=== PATIENT | female | born 1975 | race Two or more races ===

== ENCOUNTER 2020-06-26 10:41 | Outpatient (REF) | payer MEDICAID, SELFPAY ==
--- NOTE | 2020-06-26 | US_ITS ---
EXAMINATION: ULTRASOUND PELVIC COMPLETE, ULTRASOUND TRANSVAGINAL COMPLETE CLINICAL INFORMATION: Left ovarian cysts. COMPARISON: CT scan of the abdomen and pelvis dated 06/21/2020 and pelvic ultrasound dated 03/30/2020. TECHNIQUE: Multiple 2-D grayscale and color Doppler transvaginal and transabdominal ultrasound images of the pelvis were obtained. FINDINGS: Uterus: Anteverted/anteflexed measuring 9.0 x 4.7 x 5.4 cm. Intramural fibroid in the posterior/inferior uterine body measures 0.8 x 0.6 x 0.8 cm. An adjacent intramural fibroid in the mid posterior body measures 0.5 x 0.5 x 0.5 cm. Color Doppler showed no abnormal vascular flow. The endometrium measures up to 0.6 cm without focal abnormality. Right ovary: 2.1 x 1.6 x 1.6 cm with a volume of 2.8 cm. Color Doppler showed no abnormal vascular flow. Left ovary: 2.1 x 1.4 x 1.4 cm with a volume of 2.2 cm. Several small follicles are seen measuring up to 1.4 cm. Color Doppler showed no abnormal vascular flow. Urinary bladder: Minimally distended without focal abnormality. IMPRESSION: 1. Small uterine fibroids as detailed above without significant change. 2. No significant ovarian abnormality. Small left ovarian follicles demonstrate benign features and are within normal limits for a patient of this age.
== END 2020-06-26 10:42 | disposition home or self-care (01) ==
LOC: HO.US 10:41
PROVIDERS: PCP Pediatrics; Visit Provider Obstetrics & Gynecology
DX: N83.202 Unspecified ovarian cyst, left side (principal)
CPT/HCPCS: 76830; 76856

== ENCOUNTER 2020-07-26 07:40 | Outpatient (REF) | payer MEDICAID, SELFPAY | END 2020-07-26 07:41 | disposition home or self-care (01) | LOC: HO.MAMMO 07:40 | PROVIDERS: Visit Provider Pediatrics | DX: Z13.89 Encounter for screening for other disorder (principal) ==

== ENCOUNTER → 2020-08-09 11:06 | Outpatient (BNVA) | payer MEDICAID, SELFPAY | PROVIDERS: Visit Provider Obstetrics & Gynecology | DX: N92.0 Excessive and frequent menstruation with regular cycle (principal); G43.109 Migraine with aura, not intractable, without status migrainosus | CPT/HCPCS: 99212 ==

== ENCOUNTER → 2020-08-24 08:14 | Outpatient (BNVA) | payer MEDICAID, SELFPAY | PROVIDERS: Visit Provider Anesthesiology | DX: M79.7 Fibromyalgia (principal); M77.12 Lateral epicondylitis, left elbow; M77.11 Lateral epicondylitis, right elbow | CPT/HCPCS: 99212 ==

== ENCOUNTER → 2020-08-30 11:10 | Outpatient (BNVA) | payer MEDICAID, SELFPAY | PROVIDERS: PCP Pediatrics; Visit Provider Obstetrics & Gynecology | DX: Z76.89 Persons encountering health services in other specified circumstances (principal) ==

== ENCOUNTER → 2020-09-01 13:22 | Outpatient (BNVA) | payer MEDICAID, SELFPAY | PROVIDERS: PCP Pediatrics; Referring Provider Pediatrics; Visit Provider Physician Assistant | DX: M77.11 Lateral epicondylitis, right elbow (principal); M77.12 Lateral epicondylitis, left elbow | CPT/HCPCS: 20551; 99212; J1020 ==

== ENCOUNTER → 2020-09-25 14:23 | Outpatient (BNVA) | payer MEDICAID, SELFPAY | PROVIDERS: Visit Provider Obstetrics & Gynecology | DX: Z76.89 Persons encountering health services in other specified circumstances (principal) ==

== ENCOUNTER 2020-10-09 14:30 | Outpatient (RCR) | payer MEDICAID, SELFPAY ==
--- NOTE | 2020-09-11 15:03 | MHC.OT.OEV ---
[address] [phone] F: [phone] Occupational Therapy Evaluation Diagnosis: B/L Lateral Epicondylitis Date of Onset: 09/04/20 Attending Provider: Oswaldo Amor PA-C Prescribed Treatment: Eval and Treat MD Follow Up Appointment: History of Current Condition: Pt reports worsening pain in both arms and legs over the past few years, diagnosed with fibromyalgia. States she has had onset of pain in both elbows and went to specialist for cortisone injection a week ago. Injections provided some relief. 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) Living Situation, Family and/or Social Support: Lives with her daughter Current Level of Function and Occupation Self Care, Employment, Leisure: Enjoys painting and coloring, doing small weight (.5 lb) exercises, Ind w/ showers and dressing, difficulty w/ hair care Sleep: Difficulty sleeping due to pain in elbows w/ flexion Driving: Not driving due to pain and takes more meds that make driving unsafe Pain Assessment Pain Score: 6 Pain Scale Used: Numeric (0 - 10) Pain Location and Description: Bilateral lateral epicondyles, right > left Aggravating Factors: Sleeping w/ elbow extension, activities that bend arms (doing her hair) Alleviating Factors: Uses Ketoprofin-Lidocain combo topical cream Skin and Soft Tissue Assessment Skin and Soft Tissue: Ecchymosis Comments: Small bruises on bilateral epicondyles at injection site Nerve assessment Ulnar Nerve: B/L Impaired Median Nerve: B/L Impaired Radial Nerve: B/L Impaired Comments: Grossly 4/5 Sensory Assessment Comments: Pt reports tingling in all digits Edema Assessment Comments: mild edema bilateral epicondyles Dexterity Assessment Dexterity: WFL Comments: slow movements, guarded in general Special Tests Comments: AROM(PROM) Strength Cervical Cervical Flexion: Cervical Extension: Cervical Lateral Flexion: Cervical Rotation: Comments: Decreased end range rotation Shoulder Flexion: Extension: Abduction: Internal Rotation: External Rotation: Comments: Gaurded to full range, reports pain/tightness Flexion: Extension: Abduction: Internal Rotation: External Rotation: Comments: Elbow Flexion: Extension: Pronation: Supination: Comments: WFL Flexion: Extension: Pronation: Supination: Comments: Wrist Flexion: Extension: Ulnar Deviation: Radial Deviation: Comments: WFL Flexion: Extension: Ulnar Deviation: Radial Deviation: Comments: Thumb Thumb CMC Flexion: Thumb MCP Flexion: Thumb IP Flexion: Radial Abduction: Palmar Abduction: [place] (Kapandji 0-10): Comments: WFL Digits Index MCP: PIP: DIP: Long MCP: PIP: DIP: Ring MCP: PIP: DIP: Small MCP: PIP: DIP: Comments: WFL Gross Grasp: R 10 L 5 Lateral Pinch: R 4 L 5 Two-Point Pinch: R 2 R 2 Three-Jaw Aric: R 3 L 2 Comments: no change in pain with elbow extended vs. flexed Patient Education Primary Language: Solution Spec Required: Yes Current Knowledge: Minimal, needs reinforcement Teaching Method: Demonstration Handouts Verbal Education Needs Identified on Evaluation: ADL's Disease Information Equipment Use Exercise Pain Safety How did patient/family demonstrate learning? Patient demonstrates Patient verbalizes Needs reinforcement Barriers to Learning: None Readiness for Learning: Accepting Who was educated? Patient Family/other Comments: Daughter present and supportive Plan of Care Assessment: 45 yo female presents w/ worsening bilateral lateral elbow pain over the past few months, had cortisone injection w/ some relief, but still has difficulty w/ daily activities that involve prolong bending of the elbows or general strength needs. She has hx of fibromyalgia and has been out of work for several years, daughter assists w/ home care and some self care. On assessment, she appears very guarded with slow gross movements and decreased end range of neck and shoulder and significantly decreased hand strength. She will benefit from cont'd OT for joint protection education and progression with exercise program with range and strengthening within comfort. STG Duration: 1 week Short Term Goals: Ind w/ HEP Good follow through w/ sleep modications B/L gross grasp >15 lb 2/10 resting pain LTG Duration: Retirement Goals: 4 weeks Pt to progress to eccentric UE exercise program Pt to complete UBE >8 min w/ min muscle fatigue reported B/L gross grasp >20lb B/L elbows pain free at rest Frequency and Duration: The patient will be seen 2x/wk for 4 weeks Treatment Plan: Therapeutic Exercise Therapeutic Activity Home Exercise Program Splinting Patient Education Edema Control ADL Training MHP Cold Packs Soft Tissue Mobilization Kinesiotaping Electronically Signed By: Agnieszka Bingham OTR/L Reviewed/agree with student documentation: N/A Therapist: Please sign and return to therapist, Thank you for your referral.
--- NOTE | 2020-12-06 10:14 | MHC.OT.DC ---
[address] [phone] F: [phone] Occupational Therapy Discharge Note Provider: Matilda Amor PA-C Diagnosis: B/L Lateral Epicondylitis Date of Evaluation: 09/11/20 Treatments to Date: 8 Discharge Status: Patient Elected to Stop Discharge Summary: Pt was seen this past September for bilateral elbow pain, did not continue therapy. On last treatment, still w/ moderate pain with mild medial elbow edema, some carry over w/ home exercises and recommendations for joint protection. Electronically Signed By: Agnieszka Bingham OTR/L Please Sign and return to therapist, thank you for your referral.
== END 2020-12-06 10:15 | disposition other institution (70) ==
LOC: HO.OT 14:30
PROVIDERS: Visit Provider Physician Assistant
DX: M77.11 Lateral epicondylitis, right elbow (principal); M77.12 Lateral epicondylitis, left elbow
CPT/HCPCS: 29125; 97035; 97110; 97140; 97166; 97760

== ENCOUNTER → 2020-10-27 08:49 | Outpatient (BNV) | payer MEDICAID, SELFPAY | PROVIDERS: PCP Pediatrics; Visit Provider Internal Medicine Medical Oncology | DX: D50.9 Iron deficiency anemia, unspecified (principal); D72.819 Decreased white blood cell count, unspecified | CPT/HCPCS: 99212; 99213; 99214 ==

== ENCOUNTER 2020-11-06 09:38 | Outpatient (REF) | payer MEDICAID, SELFPAY ==
--- NOTE | ~2020-11-06 | MM_ITS ---
EXAMINATION: MM SCREENING DIGITAL BREAST TOMOSYNTHESIS, BILATERAL CLINICAL INFORMATION: Screening. Asymptomatic. The lifetime risk of breast cancer based on the Tyrer-Cuzick Model is 7%. COMPARISON: Mammography: 11/04/2019, 11/02/2018, 09/13/2017 TECHNIQUE: Digital breast tomosynthesis is performed in both the craniocaudal and mediolateral oblique views along with computer-aided detection (CAD). Synthesized 2D images are generated from the tomosynthesis. FINDINGS: The breasts are heterogeneously dense, which may obscure small masses (ACR BI-RADS breast composition Category c). There are no significant masses, abnormal calcifications, or other abnormalities. Parenchymal pattern is similar to prior exams. Again, there is accessory breast tissue low left axilla. There is stable the oval asymmetry posterior outer left breast likely related to fibrocystic changes. Skin contours are smooth. MM/MM tomosynthesis screening BI IMPRESSION: No significant changes from prior studies. ASSESSMENT: BI-RADS 2: Benign RECOMMENDATION: Routine annual mammography screening. This patient's information was entered into a reminder system with a target due date for their next mammogram.
== END 2020-11-06 09:39 | disposition home or self-care (01) ==
LOC: HO.MAMMO 09:38
PROVIDERS: PCP Pediatrics; Visit Provider Pediatrics
DX: Z12.31 Encounter for screening mammogram for malignant neoplasm of breast (principal)
CPT/HCPCS: 77063; 77067

== ENCOUNTER → 2021-03-27 12:51 | Outpatient (BNVA) | payer MEDICAID, SELFPAY | PROVIDERS: PCP Pediatrics; Visit Provider Nurse Practitioner Family | DX: M79.7 Fibromyalgia (principal); M77.12 Lateral epicondylitis, left elbow; M77.11 Lateral epicondylitis, right elbow | CPT/HCPCS: 99212 ==

== ENCOUNTER 2021-04-14 12:59 | Emergency (ER) | payer MEDICAID, SELFPAY ==
[2021-04-14 13:03] VITALS: BP 111/69; PULSE 96; RESP 18; TEMP 36.1; O2SAT 100; BMI 20.5
--- NOTE | 2021-04-14 14:55 | ED.EXTPRO ---
HPI - Extremity Problem General Chief complaint: Extremity Problem Stated complaint: R ARM PAIN Time Seen by Provider: 04/14/21 14:55 History of Present Illness HPI Narrative: Patient complains of pain for several months in both elbows which got worse after a steroid injection in August, but pain preceded the injection by many months She complains of some tingling going into her fingertips but denies any motor weakness or fever or any new injury Related Data Home Medications Medication Instructions Recorded Confirmed cholecalciferol (vitamin D3) 25 25 mcg PO DAILY 07/24/20 03/27/21 mcg (1,000 unit) capsule dexlansoprazole 60 mg 60 mg PO DAILY 07/24/20 03/27/21 capsule,biphase delayed release (Dexilant) duloxetine 60 mg capsule,delayed 60 mg PO DAILY 07/24/20 03/27/21 release hydroxyzine HCl 25 mg/mL 25 mg IM Q6H PRN 07/24/20 03/27/21 intramuscular solution mirtazapine 15 mg tablet 15 mg PO DAILY 07/24/20 03/27/21 ondansetron HCl 4 mg tablet 4 mg PO Q8H 07/24/20 03/27/21 (Zofran) pregabalin 150 mg capsule 150 mg PO DAILY 07/24/20 03/27/21 trazodone 100 mg tablet 100 mg PO DAILY 07/24/20 03/27/21 venlafaxine 150 mg 150 mg PO QAM 08/24/20 03/27/21 capsule,extended release 24 hr propranolol 10 mg tablet 10 mg PO BID 03/27/21 03/27/21 Previous Rx's Medication Instructions Recorded omeprazole 20 mg capsule,delayed 20 mg PO BID 30 Days #60 cap 10/05/20 release hydrocodone 5 mg-acetaminophen 325 1 tab PO Q6H PRN #5 tab 04/14/21 mg tablet Allergies Allergy/AdvReac Type Severity Reaction Status Date / Time No Known Allergies Allergy Verified 03/27/21 12:59 Review of Systems Review of Systems: Positive for bilateral elbow pain with some intermittent tingling radiating to the finger tips Negatives are no fever no chills no dizziness no weakness no neck pain no chest pain no rash, no loss of sensation no weakness PMFSH Past Medical History Source: nursing notes reviewed Medical History Anemia Depression Epicondylitis, lateral, left Epicondylitis, lateral, right Fibromyalgia Fibromyalgia Surgical History History of bilateral tubal ligation History of Social History Social History Alcohol intake: never Current occupational status: unemployed Sexual orientation: Straight/Heterosexual Gender identity: female Physical Exam Vital Signs: Vital Signs: Last Vital Signs Temp 96.9 F 04/14/21 13:03 Pulse 96 04/14/21 13:03 Resp 18 04/14/21 13:03 BP 111/69 04/14/21 13:03 Pulse Ox 100 04/14/21 13:03 Body Mass Index 20.5 General appearance is no acute distress Head is normocephalic atraumatic Neck is supple The respiratory is no distress Extremities both elbows have full range of motion without restriction, there is no swelling or redness to the joints, there is diffuse tenderness to both elbow joints which to have a normal appearance, there is no skin rash, neurovascular intact distal with full symmetric eyeglass lens generator strength and sensation Skin no rash Neuro no focal motor or sensory deficits Course Course Course Narrative: Patient had her steroid shots placed by Orthopedics and is a patient of theirs and can follow very easily and at this point is no evidence of septic joint or any skin infection or loss of circulation so patient is advised to follow with orthopedics for this ongoing problem Discharge Plan Discharge Clinical Impression: Arthralgia of both elbows Patient Disposition: Home, Self-Care Additional Instructions: Follow with orthopedist for further evaluation and if warranted they will refer you for other studies Prescriptions: New hydrocodone-acetaminophen 5-325 mg tablet 1 tab PO Q6H PRN (Reason: pain) Qty: 5 RF: 0 No Action omeprazole 20 mg capsule,delayed release(DR/EC) 20 mg PO BID 30 Days Qty: 60 RF: 3 cholecalciferol (vitamin D3) 25 mcg (1,000 unit) capsule 25 mcg PO DAILY RF: 0 trazodone 100 mg tablet 100 mg PO DAILY RF: 0 pregabalin 150 mg capsule 150 mg PO DAILY RF: 0 ondansetron HCl [Zofran] 4 mg tablet 4 mg PO Q8H RF: 0 mirtazapine 15 mg tablet 15 mg PO DAILY RF: 0 hydroxyzine HCl 25 mg/mL solution 25 mg IM Q6H PRN (Reason: Anxiety) RF: 0 duloxetine 60 mg capsule,delayed release(DR/EC) 60 mg PO DAILY RF: 0 Dexilant 60 mg capsule,biphase delayed releas 60 mg PO DAILY RF: 0 venlafaxine 150 mg capsule,extended release 24hr 150 mg PO QAM RF: 0 propranolol 10 mg tablet 10 mg PO BID RF: 0 Referrals: Quintin Palmer MD [Physician] - 2 days (Bilateral elbow pain) Interventions: ED Discharge Assessment Last Done: 04/14/21 15:21 Discharge Date/Time: 04/14/21 15:22
[2021-04-14] MEDS: HYDROcodone Bit/Acetam 5/325 TABLET 1 TAB PO (15:19)
== END 2021-04-14 15:22 | disposition home or self-care (01) ==
PROVIDERS: Emergency Provider Emergency Medicine; PCP Pediatrics
DX: M25.522 Pain in left elbow (principal); M25.521 Pain in right elbow
CPT/HCPCS: 99283

== ENCOUNTER 2021-04-23 07:53 | Outpatient (REF) | payer MEDICAID, SELFPAY ==
--- NOTE | ~2021-04-23 | US_ITS ---
EXAMINATION: US RETROPERITONEAL LIMITED (RENAL ONLY) CLINICAL INFORMATION: Renal stones. COMPARISON: CT abdomen and pelvis with contrast dated 06/21/2020. Renals only ultrasound dated 04/26/2020 and 12/28/2018. KUB dated 12/14/2015. TECHNIQUE: Real-time imaging of the kidneys. FINDINGS: RIGHT KIDNEY: 10.0 x 3.9 x 4.1 cm (SAG x AP x TRV). The kidney is normal in size, contour, and echogenicity. Renal cortical thickness is normal. There are small echogenic foci with twinkle artifact in the upper pole questionable for tiny stones. No calyceal dilatation is seen. There is fullness of the right renal pelvis and dilatation of the visualized right proximal ureter. LEFT KIDNEY: 11.4 x 4.1 x 6.4 cm (SAG x AP x TRV). The kidney is normal in size, contour, and echogenicity. Renal cortical thickness is normal. There are 2 stones measuring 4 mm in the midpole and 5 mm in the upper pole. No hydronephrosis. BLADDER: The bladder wall is normal in thickness. No stone or mass is seen. Bilateral ureteral jets are demonstrated. US/US renal BI IMPRESSION: Left renal stones and question small right renal stones. Mild dilatation of the right renal pelvis and visualized proximal ureter. Normal bladder.
== END 2021-04-23 07:54 | disposition home or self-care (01) ==
LOC: HO.US 07:53
PROVIDERS: Visit Provider Pediatrics
DX: N20.0 Calculus of kidney (principal)
CPT/HCPCS: 76775

== ENCOUNTER → 2021-04-25 15:14 | Outpatient (BNVA) | payer MEDICAID, SELFPAY | PROVIDERS: PCP Pediatrics; Visit Provider Physician Assistant | DX: G56.23 Lesion of ulnar nerve, bilateral upper limbs (principal) | CPT/HCPCS: 99212 ==

== ENCOUNTER 2021-05-08 14:27 | Outpatient (REF) | payer MEDICAID, SELFPAY ==
[2021-05-09 09:06] LABS: CT PCR NOT DETECTED (Not Detect.); NG PCR NOT DETECTED (Not Detect.)
== END 2021-05-08 14:28 | disposition home or self-care (01) ==
LOC: HO.LAB 14:27
PROVIDERS: PCP Pediatrics; Visit Provider Obstetrics & Gynecology
DX: Z01.419 Encounter for gynecological examination (general) (routine) without abnormal findings (principal); R10.2 Pelvic and perineal pain
CPT/HCPCS: 87491; 87591

== ENCOUNTER 2021-05-11 11:54 | Outpatient (REF) | payer MEDICAID, SELFPAY | END 2021-05-11 11:55 | disposition home or self-care (01) | LOC: HO.MDS 11:54 | PROVIDERS: PCP Pediatrics; Visit Provider Internal Medicine Medical Oncology | DX: D50.9 Iron deficiency anemia, unspecified (principal) | CPT/HCPCS: 96365; J1439 ==

== ENCOUNTER 2021-05-30 10:34 | Outpatient (REF) | payer MEDICAID, SELFPAY ==
--- NOTE | ~2021-05-30 | US_ITS ---
EXAMINATION: US PELVIC AND TRANSVAGINAL CLINICAL INFORMATION: Pelvic and perineal pain. COMPARISON: None TECHNIQUE: Ultrasound of the pelvis is performed using both transabdominal and transvaginal transducers along with Doppler. Transvaginal imaging is performed due to inadequate visualization transabdominally. FINDINGS: The uterus is anteverted and anteflexed measuring 8.5 cm in length, 4.0 cm in AP, and 4.9 cm in transverse dimension. The endometrial thickness is 1.0 cm. There are 2 hypoechoic lesions in the posterior body of the uterus measuring 0.7 x 0.6 x 0.8 cm, (previously measured 0.8 x 0.6 x 0.8 cm) and 0.6 x 0.6 x 0.6 cm, (previously measured 0.5 x 0.5 x 0.5 cm). Adnexa: Both ovaries are visualized. There is normal color flow to the adnexa. There is no ovarian torsion. There is no pelvic ascites or fluid collection. Right ovary measures 2.6 x 1.7 x 1.1 cm and volume 2.6 mL. Previously, the right ovary measured 2.1 x 1.6 x 1.6 cm. Left ovary measures 2.3 x 1.3 x 1.2 cm and volume 1.9 mL. Previously, the left ovary measured 2.1 x 1.4 x 1.4 cm. US/US pelvic and transvaginal IMPRESSION: Stable small uterine fibroids. Unremarkable bilateral ovaries.
== END 2021-05-30 10:35 | disposition home or self-care (01) ==
LOC: HO.US 10:34
PROVIDERS: Visit Provider Obstetrics & Gynecology
DX: R10.2 Pelvic and perineal pain (principal)
CPT/HCPCS: 76830; 76856

== ENCOUNTER → 2021-06-13 12:05 | Outpatient (BNVA) | payer MEDICAID, SELFPAY | PROVIDERS: PCP Pediatrics; Visit Provider Obstetrics & Gynecology ==

== ENCOUNTER 2021-06-27 09:33 | Outpatient (REF) | payer MEDICAID, SELFPAY ==
--- NOTE | 2021-06-27 13:22 | EMG_ITS ---
This is a 46-year-old woman with a history of fibromyalgia with pain and numbness in the hands, right more than left for several months. PHYSICAL EXAMINATION: On examination, she is alert and oriented with normal intellectual functions. Cranial nerves II through XII are normal. Muscle tone and strength are normal in all 4 extremities. Deep tendon reflexes symmetrical. Plantar responses are flexor. Gait and coordination normal. No Tinel or Phalen sign. IMPRESSION: Carpal tunnel syndrome. Nerve conduction EMG study: Early carpal tunnel syndrome on the right. Normal study on the left. Normal EMG of the right C5-T1 innervated muscles. MD KWAME Campo/MARI / [id number]
== END 2021-06-27 09:34 | disposition home or self-care (01) ==
LOC: HO.NEURO 09:33
PROVIDERS: Visit Provider Physician Assistant
DX: R20.0 Anesthesia of skin (principal); R20.2 Paresthesia of skin
CPT/HCPCS: 95885; 95913

== ENCOUNTER → 2021-07-18 09:46 | Outpatient (BNVA) | payer MEDICAID, SELFPAY | PROVIDERS: PCP Pediatrics | DX: N20.0 Calculus of kidney (principal) | CPT/HCPCS: 99202 ==

== ENCOUNTER → 2022-02-05 13:14 | Outpatient (BNVA) | payer MEDICAID, SELFPAY | PROVIDERS: PCP Pediatrics; Visit Provider Orthopaedic Surgery | DX: G56.01 Carpal tunnel syndrome, right upper limb (principal); M79.601 Pain in right arm | CPT/HCPCS: 99212 ==

== ENCOUNTER 2022-02-07 13:40 | Outpatient (REF) | payer MEDICAID, SELFPAY ==
[2022-02-08 06:48] LABS: CT PCR NOT DETECTED (Not Detect.); NG PCR NOT DETECTED (Not Detect.)
== END 2022-02-07 13:41 | disposition home or self-care (01) ==
LOC: HO.LAB 13:40
PROVIDERS: PCP Pediatrics; Visit Provider Obstetrics & Gynecology
DX: Z01.411 Encounter for gynecological examination (general) (routine) with abnormal findings (principal); D21.9 Benign neoplasm of connective and other soft tissue, unspecified
CPT/HCPCS: 87491; 87591

== ENCOUNTER 2022-02-14 13:58 | Outpatient (REF) | payer MEDICAID, SELFPAY ==
--- NOTE | ~2022-02-14 | MM_ITS ---
EXAMINATION: MM SCREENING DIGITAL BREAST TOMOSYNTHESIS, BILATERAL CLINICAL INFORMATION: Screening. Asymptomatic. The lifetime risk of breast cancer based on the Tyrer-Cuzick Model is 5.3%. COMPARISON: Mammography: November 06, 2020 and studies dating back to July 20, 2014 TECHNIQUE: Digital breast tomosynthesis is performed in both the craniocaudal and mediolateral oblique views along with computer-aided detection (CAD). Synthesized 2D images are generated from the tomosynthesis. FINDINGS: The breasts are extremely dense, which lowers the sensitivity of mammography (ACR BI-RADS breast composition Category d). There are no significant masses, abnormal calcifications, or other abnormalities. MM/MM tomosynthesis screening BI IMPRESSION: There are no significant changes from prior study. ASSESSMENT: BI-RADS 1: Negative RECOMMENDATION: Routine annual mammography screening. This patient's information was entered into a reminder system with a target due date for their next mammogram.
== END 2022-02-14 13:59 | disposition home or self-care (01) ==
LOC: HO.MAMMO 13:58
PROVIDERS: PCP Pediatrics; Visit Provider Obstetrics & Gynecology
DX: Z12.31 Encounter for screening mammogram for malignant neoplasm of breast (principal)
CPT/HCPCS: 77063; 77067

== ENCOUNTER 2022-02-15 13:29 | Emergency (ER) | payer MEDICAID, SELFPAY ==
[2022-02-15 14:45] VITALS: BP 115/78; PULSE 88; RESP 17; TEMP 35.8; O2SAT 100; BMI 20.8
[2022-02-15 22:53] VITALS: BP 126/76; PULSE 69; RESP 18; TEMP 36.7; O2SAT 100
--- NOTE | 2022-02-16 00:12 | ED.HA ---
HPI - Headache General Chief Complaint: Headache Stated Complaint: headaches/neack pain/face numbness Time Seen by Provider: 02/15/22 23:29 Source: patient, family and interpreter for the deaf Mode of arrival: ambulatory History of Present Illness HPI Narrative: This is a 46-year-old female with history of depression, anxiety, fibromyalgia, migraines who presents with 1 week headache that she describes as a bandlike pressure around head without photosensitivity but has been experiencing nausea but has increased with use of naproxen for her headache, she also describes some base of neck/shoulder pain and states her whole face hurts but denies any dental pain, photophobia, slurred speech, fever, chills. Family member who is at bedside states that the patient has been in the bed for the past 3 days, not eating well, and that patient recently lost her father. When patient is asked she does endorse that she has decrease in energy, does not feel like doing much, decrease in appetite, and does states that she is feeling increased sadness but denies any feelings of wanting to harm herself and states she does have good family support at home and has an appointment with her primary care provider on February 20. Related Data Home Medications Medication Instructions Recorded Confirmed cholecalciferol (vitamin D3) 25 25 mcg PO DAILY 07/24/20 01/25/22 mcg (1,000 unit) capsule dexlansoprazole 60 mg 60 mg PO DAILY 07/24/20 01/25/22 capsule,biphase delayed release (Dexilant) duloxetine 60 mg capsule,delayed 60 mg PO DAILY 07/24/20 01/25/22 release hydroxyzine HCl 25 mg/mL 25 mg IM Q6H PRN 07/24/20 01/25/22 intramuscular solution mirtazapine 15 mg tablet 15 mg PO DAILY 07/24/20 01/25/22 pregabalin 150 mg capsule (Lyrica) 150 mg PO DAILY 07/24/20 01/25/22 trazodone 100 mg tablet 100 mg PO DAILY 07/24/20 01/25/22 venlafaxine 150 mg 150 mg PO QAM 08/24/20 01/25/22 capsule,extended release 24 hr propranolol 10 mg tablet 10 mg PO BID 03/27/21 01/25/22 dicyclomine 20 mg tablet 20 mg PO TID 04/27/21 01/25/22 cyclobenzaprine 5 mg tablet 5 mg PO Q8H PRN 02/05/22 diclofenac sodium 1 % topical gel g TOPICAL BID 02/05/22 ibuprofen 600 mg tablet 600 mg PO Q8H PRN 02/05/22 Previous Rx's Medication Instructions Recorded omeprazole 20 mg capsule,delayed 20 mg PO BID 30 Days #60 cap 10/05/20 release pyridoxine (vitamin B6) 100 mg 100 mg PO DAILY 90 Days #90 tab 07/18/21 tablet tranexamic acid 650 mg tablet 1,300 mg PO TID 5 Days #30 tab 02/07/22 (Lysteda) Allergies Allergy/AdvReac Type Severity Reaction Status Date / Time No Known Allergies Allergy Verified 02/07/22 13:49 Review of Systems Review of Systems: Pertinent positives and negatives as stated in HPI 10 point review of systems is otherwise negative. PMFSH Past Medical History Source: nursing notes reviewed Medical History Anemia Depression Epicondylitis, lateral, left Epicondylitis, lateral, right Fibromyalgia Fibromyalgia Renal calculi Surgical History History of bilateral tubal ligation History of Social History Social History Household Members: Children Housing: House Are you a primary health and social care teacher to a significant other at home: No Do you presently have visiting nurse or other home services: No Alcohol intake: former Patient Tobacco Use Status: Never used Tobacco Advance Directives: No service: No Current occupational status: unemployed Current occupation: rt handed Sexual orientation: Straight/Heterosexual Gender identity: Female Physical Exam Vital Signs: Vital Signs: Last Vital Signs Temp 98.0 F 02/15/22 22:53 Pulse 78 02/16/22 01:26 Resp 15 02/16/22 01:26 BP 112/77 02/16/22 01:26 Pulse Ox 100 02/16/22 01:26 BMI result Body Mass Index 20.8 VITAL SIGNS: Reviewed. GENERAL: Well developed, well nourished, in no acute distress. HEAD: Normocephalic/atraumatic EYES: PERRLA, EOMI intact without pain, no nystagmus EARS: Ext canals without abnormality, TMs non-bulging and non-erythematous NOSE: Nares patent bilateral OROPHARYNX: no oral lesions noted, posterior pharynx clear and non-erythematous without noted tonsillar enlargement/erythema/exudates NECK: Supple, no adenopathy, no midline cervical spine tenderness, pain along paraspinal base of neck extending out on to bilateral shoulders there is no erythema or induration noted LUNGS: Normal breath sounds. No adventitious sounds or accessory muscle use. SpO2<100> CARDIOVASCULAR: Regular rate and rhythm without noted murmurs ABDOMEN: Soft, non-tender, non-distended with bowel sounds. MUSCULOSKELETAL: No tenderness, deformities, or effusions noted on gross inspection. EXTREMITIES: No cyanosis, clubbing or edema. SKIN: Inspection of the skin reveals no rashes NEUROLOGIC: Alert and oriented x 4. Strength and sensation to light touch were grossly intact x 4. Course Course Course Narrative: 46-year-old female with history and clinical presentation most consistent with tension headache, likely a component of dehydration with poor p.o. intake, no suspicion for meningitis/acute bony abnormalities or infection. Patient provided with medication for headache, given fluids for suspected mild dehydration and will obtain basic labs. Review of all investigations without acute finding in although ESR is mildly elevated this is inconsistent with a giant cell arteritis etiology and on re-evaluation patient is feeling much improved. MDM - Headache Lab Data Result diagrams: 02/16/22 00:46 02/16/22 00:46 Labs: Lab Results 02/16/22 02/16/22 02/16/22 Range/Units 00:46 00:46 00:46 WBC 4.3 L (4.8-10.8) X10*3/uL RBC 4.32 (4.20-5.50) X10*6/uL Hgb 13.7 (12.0-16.0) g/dl Hct 38.9 (37.0-47.0) % MCV 90.0 (80.0-98.0) fL MCH 31.7 (27.0-33.0) pg MCHC 35.2 H (31.0-35.0) g/dl RDW 12.2 (11.0-16.0) % Plt Count 198 (160-400) X10*3/uL MPV 10.4 (9.4-12.3) fL Immature Gran % (Auto) 0.2 (0.0-0.4) % Neut % (Auto) 38.6 L (45-73) % Lymph % (Auto) 49.9 H (20-40) % Ness % (Auto) 7.3 (2-11) % Eos % (Auto) 3.1 (0-4) % Baso % (Auto) 0.9 (0-2) % Lymph # (Auto) 2.1 (1.2-4.9) X10*3/uL Ness # (Auto) 0.3 (0.1-1.2) X10*3/uL Eos # (Auto) 0.1 (0.0-0.4) X10*3/uL Baso # (Auto) 0.0 (0.0-0.2) X10*3/uL Abs Immat Gran (auto) 0.01 (0.00-0.03) X10*3/uL Absolute Neuts (auto) 1.6 L (2.0-8.3) x10*3/uL Absolute Nucleated RBC 0.000 (0.0-0.012) X10*3/uL Nucleated RBC % (auto) 0.0 (0.0-0.2) /100WBC ESR 34 H (0-20) MM/HR Sodium 139 (135-145) mmol/L Potassium 4.1 (3.3-5.1) mmol/L Chloride 108 (96-108) mmol/L Carbon Dioxide 21 L (22-29) mmol/L Anion Gap 14 (12-20) BUN 11 (9-16) mg/dL Creatinine 0.85 (0.5-1.4) mg/dL Estim Creat Clear Calc 64.0 Estimated GFR > 60 Random Glucose 92 (60-115) mg/dL Calcium 10.2 (8.4-10.2) mg/dL Total Bilirubin 0.6 (0.0-1.0) mg/dL AST 12 (5-31) U/L ALT 7 (0-31) U/L Alkaline Phosphatase 80 (39-117) U/L Total Protein 7.6 (6.5-8.0) g/dL Albumin 4.4 (3.5-5.0) g/dL Urine Color Urine Appearance Urine pH (5.0-8.0) Ur Specific [place] (1.005-1.025) Urine Protein (NEG-TRACE) MG/DL Urine Glucose (UA) (NEG) MG/DL Urine Ketones (NEG) MG/DL Urine Blood (NEG) Urine Nitrite (NEG) Ur Leukocyte Esterase (NEG) 02/16/22 Range/Units 01:28 WBC (4.8-10.8) X10*3/uL RBC (4.20-5.50) X10*6/uL Hgb (12.0-16.0) g/dl Hct (37.0-47.0) % MCV (80.0-98.0) fL MCH (27.0-33.0) pg MCHC (31.0-35.0) g/dl RDW (11.0-16.0) % Plt Count (160-400) X10*3/uL MPV (9.4-12.3) fL Immature Gran % (Auto) (0.0-0.4) % Neut % (Auto) (45-73) % Lymph % (Auto) (20-40) % Ness % (Auto) (2-11) % Eos % (Auto) (0-4) % Baso % (Auto) (0-2) % Lymph # (Auto) (1.2-4.9) X10*3/uL Ness # (Auto) (0.1-1.2) X10*3/uL Eos # (Auto) (0.0-0.4) X10*3/uL Baso # (Auto) (0.0-0.2) X10*3/uL Abs Immat Gran (auto) (0.00-0.03) X10*3/uL Absolute Neuts (auto) (2.0-8.3) x10*3/uL Absolute Nucleated RBC (0.0-0.012) X10*3/uL Nucleated RBC % (auto) (0.0-0.2) /100WBC ESR (0-20) MM/HR Sodium (135-145) mmol/L Potassium (3.3-5.1) mmol/L Chloride (96-108) mmol/L Carbon Dioxide (22-29) mmol/L Anion Gap (12-20) BUN (9-16) mg/dL Creatinine (0.5-1.4) mg/dL Estim Creat Clear Calc Estimated GFR Random Glucose (60-115) mg/dL Calcium (8.4-10.2) mg/dL Total Bilirubin (0.0-1.0) mg/dL AST (5-31) U/L ALT (0-31) U/L Alkaline Phosphatase (39-117) U/L Total Protein (6.5-8.0) g/dL Albumin (3.5-5.0) g/dL Urine Color YELLOW Urine Appearance CLEAR Urine pH 5.5 (5.0-8.0) Ur Specific [place] 1.025 (1.005-1.025) Urine Protein NEG (NEG-TRACE) MG/DL Urine Glucose (UA) NEG (NEG) MG/DL Urine Ketones NEG (NEG) MG/DL Urine Blood NEG (NEG) Urine Nitrite NEG (NEG) Ur Leukocyte Esterase NEG (NEG) Discharge Plan Discharge Clinical Impression: Grieving, Headache, Depression, Dehydration Patient Disposition: Home, Self-Care Instructions: Dehydration (ED), Depression (ED), Grief and Loss (ED), General Headache (ED) Additional Instructions: 1. Reanudar todos los medicamentos caseros seg?n lo prescrito. 2. Tylenol 1000 mg, por v?a oral, cada 6 horas seg?n sea necesario para el dolor de darian. No exceda los 4000 mg dentro de las 24 horas. 3. Parche de lidoca?na, aplique en el ?seble de m?xima sensibilidad richie se indica en el empaque exterior. 4. Mantenga fountain osei programada con fountain proveedor de atenci?n primaria esta pr?xima semana. Regrese a la brisa de emergencias si los s?ntomas empeoran. Prescriptions: No Action omeprazole 20 mg capsule,delayed release(DR/EC) 20 mg PO BID 30 Days Qty: 60 3RF dicyclomine 20 mg Tablet 20 mg PO TID 0RF cholecalciferol (vitamin D3) 25 mcg (1,000 unit) capsule 25 mcg PO DAILY 0RF trazodone 100 mg tablet 100 mg PO DAILY 0RF pregabalin [Lyrica] 150 mg capsule 150 mg PO DAILY 0RF mirtazapine 15 mg tablet 15 mg PO DAILY 0RF hydroxyzine HCl 25 mg/mL solution 25 mg IM Q6H PRN (Reason: Anxiety) 0RF duloxetine 60 mg capsule,delayed release(DR/EC) 60 mg PO DAILY 0RF Dexilant 60 mg capsule,biphase delayed releas 60 mg PO DAILY 0RF venlafaxine 150 mg capsule,extended release 24hr 150 mg PO QAM 0RF propranolol 10 mg tablet 10 mg PO BID 0RF pyridoxine (vitamin B6) 100 mg tablet 100 mg PO DAILY 90 Days Qty: 90 1RF tranexamic acid [Lysteda] 650 mg tablet 1,300 mg PO TID 5 Days Qty: 30 11RF diclofenac sodium 1 % gel topical BID 0RF ibuprofen 600 mg tablet 600 mg PO Q8H PRN0RF cyclobenzaprine 5 mg tablet 5 mg PO Q8H PRN (Reason: muscle spasm) 0RF Print Language: Mexican
[2022-02-16 00:59] LABS: MANUAL DIFF FLAG NO
[2022-02-16 01:01] LABS: Basophils Percent Auto 0.9 % (0-2); Eosinophils Absolute Auto 0.1 X10*3/uL (0.0-0.4); Eosinophils Percent Auto 3.1 % (0-4); Hematocrit 38.9 % (37.0-47.0); Hemoglobin 13.7 g/dl (12.0-16.0); Imm Gran Abs Auto 0.01 X10*3/uL (0.00-0.03); Imm Gran Pct Auto 0.2 % (0.0-0.4); Lymphocytes Absolute Auto 2.1 X10*3/uL (1.2-4.9); Lymphocytes Percent Auto 49.9 % (20-40); Mean Corpuscular HGB Conc 35.2 g/dl (31.0-35.0); Mean Corpuscular Hemoglobin 31.7 pg (27.0-33.0); Mean Platelet Volume 10.4 fL (9.4-12.3); Monocytes Absolute Auto 0.3 X10*3/uL (0.1-1.2); Monocytes Percent Auto 7.3 % (2-11); Neutrophils Absolute Auto 1.6 x10*3/uL (2.0-8.3); Neutrophils Percent Auto 38.6 % (45-73); Platelet Count 198 X10*3/uL (160-400); Red Blood Count 4.32 X10*6/uL (4.20-5.50); Red Cell Distribution Width 12.2 % (11.0-16.0); White Blood Count 4.3 X10*3/uL (4.8-10.8)
[2022-02-16] MEDS: Lidocaine 4 % Patch ADH..PATCH 1 PATCH TRANSDERMA (01:07)
[2022-02-16] MEDS: Acetaminophen 325 MG TABLET 975 MG PO (01:07)
[2022-02-16 01:18] LABS: Alanine Aminotransferase 7 U/L (0-31); Albumin Level 4.4 g/dL (3.5-5.0); Alkaline Phosphatase 80 U/L (39-117); Anion Gap 14 (12-20); Aspartate Amino Transferase 12 U/L (5-31); Bilirubin Total 0.6 mg/dL (0.0-1.0); Blood Urea Nitrogen 11 mg/dL (9-16); Calcium 10.2 mg/dL (8.4-10.2); Carbon Dioxide 21 mmol/L (22-29); Chloride 108 mmol/L (96-108); Estimated Glomerular Filt Rate > 60; Glucose Random 92 mg/dL (60-115); Potassium 4.1 mmol/L (3.3-5.1); Sodium 139 mmol/L (135-145); Total Protein 7.6 g/dL (6.5-8.0)
[2022-02-16] MEDS: 0.9 % Sodium Chloride 1,000 ML 999 ML IV (01:24)
[2022-02-16] MEDS: Ketorolac Tromethamine 30 MG/ML VIAL 15 MG IVPUSH (01:24)
[2022-02-16 01:26] VITALS: BP 112/77; PULSE 78; RESP 15; O2SAT 100
[2022-02-16 01:38] LABS: Appearance Urine CLEAR; Color Urine YELLOW; Glucose Urine UA NEG (NEG); Leukocyte Esterase Urine NEG (NEG); Nitrite Urine NEG (NEG); PH 5.5 (5.0-8.0); Specific Gravity - Urine 1.025 (1.005-1.025); Urine Blood NEG (NEG); Urine Ketones NEG (NEG); Urine Protein NEG (NEG-TRACE)
[2022-02-16 01:39] LABS: Erythrocyte Sedimentation Rate 34 MM/HR (0-20)
== END 2022-02-16 02:48 | disposition home or self-care (01) ==
PROVIDERS: Emergency Provider Student in an Organized Health Care Education/Training Program
DX: R51.9 Headache, unspecified (principal); E86.0 Dehydration; F43.21 Adjustment disorder with depressed mood
CPT/HCPCS: 36415; 80053; 81003; 85025; 85652; 96361; 96374; 99284; J1885

== ENCOUNTER 2022-02-19 13:53 | Outpatient (REF) | payer MEDICAID, SELFPAY ==
--- NOTE | ~2022-02-19 | US_ITS ---
EXAMINATION: US PELVIS CLINICAL INFORMATION: Fibroids. COMPARISON: Pelvic ultrasound dated from 05/30/2021. LMP 01/14/2022. History of x3. TECHNIQUE: Ultrasound of the pelvis is performed using both transabdominal and transvaginal transducers along with Doppler. Transvaginal imaging is performed due to inadequate visualization transabdominally. FINDINGS: The uterus is anteverted and measures 7.2 x 3.7 x 4.4 cm. There is redemonstration of 2 fibroids in the anterior surface of the upper uterus measuring 0.9 x 0.7 x 1 cm (previously 0.6 x 0.6 x 0.6 cm) and 0.8 x 0.7 x 0.9 cm (previously 0.7 x 0.6 x 0.8 cm). The myometrium is heterogeneous. The endometrium measures 0.4 cm in thickness with no discrete focal abnormality. There is a small amount of free fluid in the upper third of the endometrium which is likely physiologic. The ovaries are normal in morphology with preserved flow at the moment of this examination. The right ovary measures 2.3 x 1.5 x 1.4 cm (2.5 mL), and the left ovary measures 2.3 x 1.1 x 2 cm (2.7 mL). There is no free fluid. US/US pelvic and transvaginal IMPRESSION: 1. Redemonstration of 2 subcentimeter uterine fibroids, one of which appears to be slightly increased in size by order of a few millimeters. These changes in size are possibly related with differences in technique measurement. 2. The myometrium is somewhat heterogeneous which could be seen with adenomyosis. Correlate clinically and if indicated further characterization could be obtained with a pelvic MRI with and without intravenous contrast. 3. Small amount of fluid in the endometrium is likely physiologic.
== END 2022-02-19 13:54 | disposition home or self-care (01) ==
LOC: HO.HMGCX 13:53
PROVIDERS: Visit Provider Obstetrics & Gynecology
DX: D21.9 Benign neoplasm of connective and other soft tissue, unspecified (principal)
CPT/HCPCS: 76830; 76856

== ENCOUNTER → 2022-03-05 11:27 | Outpatient (BNVA) | payer MEDICAID, SELFPAY | PROVIDERS: PCP Pediatrics; Visit Provider Obstetrics & Gynecology | DX: D25.9 Leiomyoma of uterus, unspecified (principal) | CPT/HCPCS: 99212 ==

== ENCOUNTER → 2022-05-13 09:35 | Outpatient (BNVA) | payer MEDICAID, SELFPAY | PROVIDERS: PCP Pediatrics; Visit Provider Obstetrics & Gynecology | DX: N93.9 Abnormal uterine and vaginal bleeding, unspecified (principal); Z98.51 Tubal ligation status | CPT/HCPCS: 99212 ==

== ENCOUNTER 2022-07-01 16:02 | Outpatient (REF) | payer MEDICAID, SELFPAY ==
--- NOTE | ~2022-07-01 | MR_ITS ---
EXAMINATION: MR BRAIN WITHOUT CONTRAST CLINICAL INFORMATION: New onset daily headache associated with dizziness and nausea. COMPARISON: None available. TECHNIQUE: Multiplanar, multisequence imaging of the brain was performed without intravenous contrast. There is susceptibility artifact emanating from the oral cavity related to dental braces. The diffusion and gradient echo sequences are most severely affected. Diagnostic information is still obtained. FINDINGS: There is no acute infarction, mass, hemorrhage, or extra-axial collection. The ventricles, sulci, and basilar cisterns are normal in size and configuration. The cerebellar tonsils are normally positioned above the foramen magnum. The midline structures appear normal. The flow voids of the major intracranial arteries appear intact. The bones and extracranial soft tissues are unremarkable. MR/MR head/brain wo con IMPRESSION: Limited exam due to significant artifact from oral braces. Within these limitations, no acute abnormality or mass is seen.
== END 2022-07-01 16:03 | disposition home or self-care (01) ==
LOC: HO.MRI 16:02
PROVIDERS: Visit Provider Family Medicine
DX: G44.52 New daily persistent headache (NDPH) (principal)
CPT/HCPCS: 70551

== ENCOUNTER 2022-08-14 13:02 | Outpatient (REF) | payer MEDICAID, SELFPAY ==
--- NOTE | ~2022-08-14 | US_ITS ---
EXAMINATION: US PELVIS CLINICAL INFORMATION: Myoma COMPARISON: Ultrasound pelvis 02/19/2022 TECHNIQUE: Ultrasound of the pelvis is performed using both transabdominal and transvaginal transducers along with Doppler. Transvaginal imaging is performed due to inadequate visualization transabdominally. FINDINGS: Uterus: The uterus is anteverted, anteflexed and measures 9.4 cm in length for 0.2 cm AP and 4.8 cm in transverse dimension. The double wall endometrial thickness is 0.7 cm The uterus is smooth in contour and has normal myometrial echogenicity. There are 2 hypoechoic lesions. One. Lesion in the upper posterior body of uterus measures 1.1 x 1.0 x 0.9 cm. Previously measured 0.9 x 0.7 x 1.0 cm. 2. Lesion in the mid posterior body of uterus measures 0.6 x 0.7 x 0.7 seen. Previously measured 0.8 x 0.7 0.9 cm.. Adnexa: Both ovaries are visualized. There is normal color flow to the adnexa. There is no ovarian torsion. There is no pelvic ascites or fluid collection. Right ovary measures 2.9 x 1.6 x 2.0 cm and volume 5.5 mL. It appears unremarkable. Previously it measured 2.3 x 1.5 x 1.4 cm and volume 2.5 mL. Left ovary measures 3.3 x 1.6 x 2.9 cm and volume 5.5 mL. There is anechoic cyst measuring 2.2 x 1.3 x 2.7 cm with septations. Previously left ovary measured 2.3 x 1.1 x 2.0 cm and volume 2.7 mL. There is small amount of free fluid in the cul-de-sac. US/US pelvic and transvaginal IMPRESSION: 1. 2 small uterine fibroids. They are stable. 2. Complex cyst left ovary. 3. The right ovary is unremarkable. 4. There is minimal free fluid in the cul-de-sac.
== END 2022-08-14 13:03 | disposition home or self-care (01) ==
LOC: HO.US 13:02
PROVIDERS: Visit Provider Obstetrics & Gynecology
DX: D21.9 Benign neoplasm of connective and other soft tissue, unspecified (principal)
CPT/HCPCS: 76830; 76856

== ENCOUNTER 2022-08-29 09:24 | Outpatient (REF) | payer MEDICAID, SELFPAY ==
[2022-09-02 12:03] LABS: CA-125 16 U/mL (<35)
== END 2022-08-29 09:25 | disposition home or self-care (01) ==
LOC: HO.LAB 09:24
PROVIDERS: PCP Pediatrics; Visit Provider Obstetrics & Gynecology
DX: N83.299 Other ovarian cyst, unspecified side (principal); N93.9 Abnormal uterine and vaginal bleeding, unspecified; D21.9 Benign neoplasm of connective and other soft tissue, unspecified
CPT/HCPCS: 36415; 86304; 99212

== ENCOUNTER 2022-12-11 10:29 | Outpatient (REF) | payer MEDICAID, SELFPAY ==
--- NOTE | ~2022-12-11 | US_ITS ---
EXAM: Pelvic Ultrasound CLINICAL INDICATION: Ovarian cyst COMPARISON: Pelvic ultrasound 08/14/2022 TECHNIQUE: The pelvis was evaluated using transabdominal and transvaginal imaging. Color Doppler imaging and spectral analysis of the bilateral ovaries was also performed. FINDINGS: The uterus measures 8.7 x 4.4 x 5.8 cm in longitudinal by AP by transverse dimension. The uterus demonstrates overall heterogeneous echotexture with a few small cystic foci. The endometrial stripe is not thickened and measures 1.1 cm. Two subcentimeter posterior fundal fibroids are noted. Nabothian cysts are noted within the cervix. Trace amount of free fluid is also present within the cervix. The left ovary measures approximately 2.7 x 1.7 x 2.4 cm and demonstrates an approximately 2 cm cyst which contains a thin avascular septation (previously 2.7 cm). The right ovary measures approximately 4.6 x 2.7 x 3.7 cm and contains an approximately 4 cm cyst which contains a single thin but vascular septation. There is a small amount of free fluid in the pelvis. US/US pelvic and transvaginal IMPRESSION: 1. Normal thickness endometrial stripe. 2. Two subcentimeter posterior fundal fibroids are noted. 3. Bilateral ovarian cysts are present, the cyst on the right measures approximately 4 cm and the cyst on the left measures 2 cm. 4. Small amount of free pelvic fluid, likely physiologic in a female of this age. Follow-up imaging can be obtained as clinically indicated.
== END 2022-12-11 10:30 | disposition home or self-care (01) ==
LOC: HO.US 10:29
PROVIDERS: PCP Pediatrics; Visit Provider Obstetrics & Gynecology
DX: N83.299 Other ovarian cyst, unspecified side (principal)
CPT/HCPCS: 76830; 76856

== ENCOUNTER 2023-01-22 10:05 | Outpatient (REF) | payer MEDICAID, SELFPAY ==
[2023-01-24 13:38] LABS: CA-125 13 U/mL (<35)
== END 2023-01-22 10:06 | disposition home or self-care (01) ==
LOC: HO.LAB 10:05
PROVIDERS: PCP Pediatrics; Visit Provider Obstetrics & Gynecology
DX: N83.299 Other ovarian cyst, unspecified side (principal)
CPT/HCPCS: 36415; 86304; 99212

== ENCOUNTER 2023-01-29 09:06 | Outpatient (REF) | payer MEDICAID, SELFPAY ==
--- NOTE | ~2023-01-29 | CT_ITS ---
EXAMINATION: CT ABDOMEN AND PELVIS WITHOUT CONTRAST CLINICAL INFORMATION: Kidney stones COMPARISON: Previous CT of the abdomen and pelvis May 2020 and renal ultrasound April 2021 TECHNIQUE: Multidetector volumetric imaging was performed from the superior aspect of the liver through the pubic symphysis. Sagittal and coronal reformatted images were obtained on the technologist's workstation. This CT examination was performed using dose optimization techniques as appropriate, variously including the following: *Automated exposure control *Adjustment of mA and/or kV according to patient size (this includes techniques or standardized protocols for targeted exams where dose is matched to indication/reason for exam; i.e. extremities or head) *Use of iterative reconstruction technique DLP: 355 mGy-cm FINDINGS: LUNG BASES: The visualized lung bases are unremarkable. LIVER, GALLBLADDER, AND BILIARY TREE: The liver is normal in size, shape, and attenuation. No focal hepatic lesion or biliary ductal dilatation is present. The gallbladder is unremarkable with no evidence of radiopaque gallstones, gallbladder wall thickening, or obvious pericholecystic inflammatory changes. PANCREAS: Unremarkable. SPLEEN: Unremarkable. ADRENAL GLANDS: Unremarkable. KIDNEYS AND URETERS: The kidneys are normal in size, shape, and attenuation. No hydronephrosis, hydroureter, or calculi seen. No perinephric stranding. BLADDER: Not optimally distended. GASTROINTESTINAL TRACT: Stool throughout the colon questionable for constipation. Small and large bowel is otherwise normal. The appendix is is not seen. There are no inflammatory changes in the right lower quadrant. ABDOMINAL WALL: No significant hernia is appreciated. LYMPH NODES: Normal. VASCULAR: Unremarkable. PELVIC VISCERA: Uterus and adnexa are unremarkable. There is a small amount of fluid in the pelvis. OSSEOUS STRUCTURES: Unremarkable. CT/CT abdomen pelvis wo IV con IMPRESSION: No stone seen. Stool throughout the colon questionable for constipation. Fleischner guidelines were followed.
== END 2023-01-29 09:07 | disposition home or self-care (01) ==
LOC: HO.CT 09:06
PROVIDERS: PCP Pediatrics; Visit Provider Family Medicine
DX: Z87.442 Personal history of urinary calculi (principal)
CPT/HCPCS: 74176

== ENCOUNTER 2023-02-11 16:47 | Emergency (ER) | payer MEDICAID, SELFPAY ==
--- NOTE | ~2023-02-11 | XR_ITS ---
EXAMINATION: XR CHEST CLINICAL INFORMATION: Chest pain. COMPARISON: Chest radiograph 01/25/2020. TECHNIQUE: Frontal view of the chest was obtained. FINDINGS: No significant abnormality is noted involving the heart, lungs, mediastinum, bony thorax or soft tissues. XR/XR chest 1V IMPRESSION: Unremarkable examination.
[2023-02-11 16:48] VITALS: BP 125/75; PULSE 98; RESP 18; TEMP 36.8; O2SAT 100; BMI 19.2
--- NOTE | 2023-02-11 16:50 | ED.GENADULT ---
HPI - General Adult General Chief complaint: Chest Pain Stated complaint: low blood pressure Time Seen by Provider: 02/11/23 21:26 Source: patient, family and classroom assistant Mode of arrival: ambulatory Limitations: no limitations History of Present Illness HPI narrative: 47-year-old female walked in today from psychiatrist office for feeling generalized weakness, low blood pressure at the office, has not been eating well for the past couple days. Patient is known to have a history of anxiety, depression (patient lost her 2 months ago Who has been with her for 31 years)., fibromyalgia. Patient otherwise declined any recent travel, no lower extremity swelling, no lower extremities tenderness, no history of PE or DVT, no history of cardiac problem. While patient was in the office felt right-sided chest pain that has been constant for the last 3 days pain as patient described is dull aching pain more when she touches her right chest or left her arm above her head, pain also was radiating to the right shoulder and toward the right side of upper back, patient feeling depressed but no SI or HI, no auditory hallucination. Related Data Home Medications Medication Instructions Recorded Confirmed cholecalciferol (vitamin D3) 25 25 mcg PO DAILY 07/24/20 08/29/22 mcg (1,000 unit) capsule dexlansoprazole 60 mg 60 mg PO DAILY 07/24/20 08/29/22 capsule,biphase delayed release (Dexilant) duloxetine 60 mg capsule,delayed 60 mg PO DAILY 07/24/20 08/29/22 release hydroxyzine HCl 25 mg/mL 25 mg IM Q6H PRN Anxiety 07/24/20 08/29/22 intramuscular solution mirtazapine 15 mg tablet 15 mg PO DAILY 07/24/20 08/29/22 pregabalin 150 mg capsule (Lyrica) 150 mg PO DAILY 07/24/20 08/29/22 trazodone 100 mg tablet 100 mg PO DAILY 07/24/20 08/29/22 venlafaxine 150 mg 150 mg PO QAM 08/24/20 08/29/22 capsule,extended release 24 hr propranolol 10 mg tablet 10 mg PO BID 03/27/21 08/29/22 dicyclomine 20 mg tablet 20 mg PO TID 04/27/21 08/29/22 cyclobenzaprine 5 mg tablet 5 mg PO Q8H PRN muscle spasm 02/05/22 08/29/22 diclofenac sodium 1 % topical gel 1 g topical BID 02/05/22 08/29/22 ibuprofen 600 mg tablet 600 mg PO Q8H PRN Pain 02/05/22 08/29/22 Previous Rx's Medication Instructions Recorded omeprazole 20 mg capsule,delayed 20 mg PO BID 30 days #60 caps 10/05/20 release pyridoxine (vitamin B6) 100 mg 100 mg PO DAILY 90 days #90 tabs 05/24/22 tablet ferrous sulfate 325 mg (65 mg 325 mg PO BID #60 tabs 07/29/22 iron) tablet (iron) ferrous sulfate 325 mg (65 mg 325 mg PO BID #180 tabs 08/29/22 iron) tablet (Iron (ferrous sulfate)) tranexamic acid 650 mg tablet 1,300 mg PO TID 5 days #30 tabs 08/29/22 (Lysteda) Allergies Allergy/AdvReac Type Severity Reaction Status Date / Time No Known Allergies Allergy Verified 01/22/23 10:10 Review of Systems Review of Systems: All other systems are reviewed and are negative Constitutional: Reports as per HPI and Reports no additional constitutional complaints Eyes: Reports as per HPI and Reports no additional eye complaints Reports system reviewed and no additional complaints, except as documented Cardiovascular: Reports as per HPI and Reports no additional cardiovascular complaints Respiratory: Reports as per HPI and Reports no additional respiratory complaints Gastrointestinal: Reports as per HPI and Reports no additional gastrointestinal complaints Genitourinary: Reports no additional female genitourinary complaints Musculoskeletal: Reports no additional musculoskeletal complaints Skin/Breast: Reports system reviewed and no additional complaints, except as docu Psychiatric: Reports no additional psychiatric complaints Endocrine: Reports no additional endocrine complaints Hematologic/Lymphatic: Reports no additional hematologic/lymphatic complaints Allergic/Immunologic: Reports no additional allergic/immunologic complaints Reports system reviewed and no additional complaints, except as documented and Reports Abnormal speech present [facility] Past Medical History Medical History Anemia Depression Epicondylitis, lateral, left Epicondylitis, lateral, right Fibromyalgia Fibromyalgia Renal calculi Surgical History History of bilateral tubal ligation History of Family History Family History Other No family history of cancer Social History Social History Household Members: Children Housing: House Are you a primary health care social worker to a significant other at home: No Do you presently have visiting nurse or other home services: No Alcohol intake: former Patient Tobacco Use Status: Never used Tobacco Smoked in Last 30 Days: No Use of substances other than those prescribed or required for medical reasons: No Advance Directives: No Advance Directives Information Provided: Yes Patient : No service: No Current occupational status: unemployed Current occupation: rt handed Sexual orientation: Straight/Heterosexual Gender identity: Female Physical Exam ED Vital Signs: Vital Signs - 24 hr 02/11/23 16:48 02/11/23 21:32 02/11/23 21:32 Temperature 98.2 F 97.5 F Pulse Rate 98 78 74 Respiratory Rate 18 14 Blood Pressure 125/75 118/70 118/70 Pulse Oximetry 100 100 Oxygen Delivery Method Room Air Room Air BMI result Body Mass Index 19.2 vital signs have been reviewed as appeared to be correct. Blood pressure normal. Heart rate normal. Respiration rate normal. Temperature normal. Oxygen saturation normal. Appearance: Alert. Oriented X3. No acute distress. Head: Normal external exam. Normocephalic. Atraumatic. No Solo signs noted. No raccoon eyes noted Eyes: PERRLA. EOMI. Conjunctiva and sclera normal. Eyelids normal. ENT: TM's Normal. Pharynx normal. Uvula midline. Moist mucous membranes. No trismus noted. No drooling noted. No muffled voice noted. Neck: Normal inspection. Neck supple. FROM. No adenopathy. Thyroid Normal. No meningeal signs. No neck mass noted. CVS: Normal heart rate and rhythm. Heart sound normal. No murmurs noted. Pulses normal throughout. Respiratory: No respiratory distress. Painless inspiration. Breath sounds normal. No wheezes/rales/rhonchi noted. Reproducible tenderness to right costochondral junction with palpation, No accessory muscle usage noted or decreased air movement noted. Abdomen: Soft and nontender. Bowel sounds normal in all 4 quadrants. No distention noted. No organomegaly noted. No visible injury noted. Back: No CVA tenderness. Full range of motion noted. Skin: Skin warm and dry. Normal skin color. Normal skin turgor. No rashes/lesions/lacerations noted. Extremities: No lower extremity edema. Extremities exhibit normal range of motion. Extremities nontender. Neuro: Oriented X 3. Cranial nerve exam: II-XII are grossly intact No motor deficit. No sensory deficit. Reflexes normal. Course Course Course Narrative: RME: 47 yo F w/PMHx anemia, depression, fibromyalgia, sent in from 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 Pt reports CP radiating to throat and R shoulder, SOB, generalized weakness & dizziness x3 days. EKG, labs, UA, CXR, orthostatics ordered Full HPI, ROS and PE to be performed by primary ED provider. Reevaluation(s) Reevaluation #1: 47-year-old female came in from her psychiatrist office for low blood pressure unable to provide blood pressure numbers, patient also has been complaining of generalized weakness, given extensive psychiatric history and patient feeling depressed without SI or HI also with history of fibromyalgia and the reproducible chest wall tenderness patient at very low risk of ACS, patient was given IV hydration and 1 dose of Ativan to help patient's anxiety with significant improvement of the patient's symptoms, patient was instructed to follow up with her psychiatrist. Time: 21:40 Medical Decision Making Differential Diagnosis Differential Diagnoses: The differential diagnosis associated with the presentation includes ( ACS, electrolyte abnormalities, pneumonia, pneumothorax, severe anemia, severe depression, fibromyalgia, costochondritis, infection.) Lab Data MDM Lab Attestation statement: I reviewed the patient's lab results. 02/11/23 17:17 02/11/23 17:17 Labs: Lab Results 02/11/23 02/11/23 02/11/23 Range/Units 17:17 17:17 17:17 WBC 4.8 (4.8-10.8) X10*3/uL RBC 4.37 (4.20-5.50) X10*6/uL Hgb 13.6 (12.0-16.0) g/dl Hct 38.5 (37.0-47.0) % MCV 88.1 (80.0-98.0) fL MCH 31.1 (27.0-33.0) pg MCHC 35.3 H (31.0-35.0) g/dl RDW 12.8 (11.0-16.0) % Plt Count 242 D (160-400) X10*3/uL MPV 9.7 (9.4-12.3) fL Immature Gran % (Auto) 0.2 (0.0-0.4) % Neut % (Auto) 65.2 (45-73) % Lymph % (Auto) 26.0 (20-40) % [place] % (Auto) 6.8 (2-11) % Eos % (Auto) 0.8 (0-4) % Baso % (Auto) 1.0 (0-2) % Lymph # (Auto) 1.3 (1.2-4.9) X10*3/uL [place] # (Auto) 0.3 (0.1-1.2) X10*3/uL Eos # (Auto) 0.0 (0.0-0.4) X10*3/uL Baso # (Auto) 0.1 (0.0-0.2) X10*3/uL Abs Immat Gran (auto) 0.01 (0.00-0.03) X10*3/uL Absolute Neuts (auto) 3.2 (2.0-8.3) x10*3/uL Absolute Nucleated RBC 0.000 (0.0-0.012) X10*3/uL Nucleated RBC % (auto) 0.0 (0.0-0.2) /100WBC PT (10.0-13.1) SEC INR (0.9-1.1) Sodium 140 (135-145) mmol/L Potassium 4.1 (3.3-5.1) mmol/L Chloride 107 (96-108) mmol/L Carbon Dioxide 23 (22-29) mmol/L Anion Gap 14 (12-20) BUN 13 (9-16) mg/dL Creatinine 0.82 (0.5-1.4) mg/dL Estim Creat Clear Calc 62.4 Estimated GFR > 60 Random Glucose 91 (60-115) mg/dL Calcium 10.0 D (8.4-10.2) mg/dL Magnesium 2.0 (1.6-2.6) mg/dL Total Bilirubin 0.5 (0.0-1.0) mg/dL Direct Bilirubin 0.1 (0.0-0.5) mg/dL AST 14 (5-31) U/L ALT 13 (0-31) U/L Alkaline Phosphatase 92 (39-117) U/L Troponin I High Sens < 2.7 (<3.5-17.0) ng/L Total Protein 7.9 (6.5-8.0) g/dL Albumin 4.6 (3.5-5.0) g/dL 02/11/23 Range/Units 17:17 WBC (4.8-10.8) X10*3/uL RBC (4.20-5.50) X10*6/uL Hgb (12.0-16.0) g/dl Hct (37.0-47.0) % MCV (80.0-98.0) fL MCH (27.0-33.0) pg MCHC (31.0-35.0) g/dl RDW (11.0-16.0) % Plt Count (160-400) X10*3/uL MPV (9.4-12.3) fL Immature Gran % (Auto) (0.0-0.4) % Neut % (Auto) (45-73) % Lymph % (Auto) (20-40) % [place] % (Auto) (2-11) % Eos % (Auto) (0-4) % Baso % (Auto) (0-2) % Lymph # (Auto) (1.2-4.9) X10*3/uL [place] # (Auto) (0.1-1.2) X10*3/uL Eos # (Auto) (0.0-0.4) X10*3/uL Baso # (Auto) (0.0-0.2) X10*3/uL Abs Immat Gran (auto) (0.00-0.03) X10*3/uL Absolute Neuts (auto) (2.0-8.3) x10*3/uL Absolute Nucleated RBC (0.0-0.012) X10*3/uL Nucleated RBC % (auto) (0.0-0.2) /100WBC PT 12.1 (10.0-13.1) SEC INR 1.1 (0.9-1.1) Sodium (135-145) mmol/L Potassium (3.3-5.1) mmol/L Chloride (96-108) mmol/L Carbon Dioxide (22-29) mmol/L Anion Gap (12-20) BUN (9-16) mg/dL Creatinine (0.5-1.4) mg/dL Estim Creat Clear Calc Estimated GFR Random Glucose (60-115) mg/dL Calcium (8.4-10.2) mg/dL Magnesium (1.6-2.6) mg/dL Total Bilirubin (0.0-1.0) mg/dL Direct Bilirubin (0.0-0.5) mg/dL AST (5-31) U/L ALT (0-31) U/L Alkaline Phosphatase (39-117) U/L Troponin I High Sens (<3.5-17.0) ng/L Total Protein (6.5-8.0) g/dL Albumin (3.5-5.0) g/dL Independent Interpretation I performed an independent interpretation of an: EKG ( Normal sinus rhythm at 75 beats per minutes, normal intervals, no ST-T changes, no change from previous EKG.) and Plain X-Ray ( Chest: Unremarkable examination.) Radiology Impression Discussion of test interpretation with radiology: I have reviewed the radiologist's reading. Chronic Conditions Patient?s care impacted by: Other ( Fibromyalgia, anxiety print) Discharge Plan Discharge Clinical Impression: Fibromyalgia, Chest pain, Anxiety Patient Disposition: Home, Self-Care Instructions: Chest Pain (ED) Prescriptions: No Action omeprazole 20 mg capsule,delayed release(DR/EC) 20 mg PO BID 30 Days Qty: 60 3RF pyridoxine (vitamin B6) 100 mg tablet 100 mg PO DAILY 90 Days Qty: 90 1RF dicyclomine 20 mg Tablet 20 mg PO TID ferrous sulfate [iron] 325 mg (65 mg iron) Tablet 325 mg PO BID Qty: 60 6RF ferrous sulfate [Iron (ferrous sulfate)] 325 mg (65 mg iron) Tablet 325 mg PO BID Qty: 180 2RF cholecalciferol (vitamin D3) 25 mcg (1,000 unit) capsule 25 mcg PO DAILY trazodone 100 mg tablet 100 mg PO DAILY pregabalin [Lyrica] 150 mg capsule 150 mg PO DAILY mirtazapine 15 mg tablet 15 mg PO DAILY hydroxyzine HCl 25 mg/mL solution 25 mg IM Q6H PRN (Reason: Anxiety) duloxetine 60 mg capsule,delayed release(DR/EC) 60 mg PO DAILY Dexilant 60 mg capsule,biphase delayed releas 60 mg PO DAILY venlafaxine 150 mg capsule,extended release 24hr 150 mg PO QAM propranolol 10 mg tablet 10 mg PO BID diclofenac sodium 1 % gel 1 g topical BID ibuprofen 600 mg tablet 600 mg PO Q8H PRN (Reason: Pain) cyclobenzaprine 5 mg tablet 5 mg PO Q8H PRN (Reason: muscle spasm) tranexamic acid [Lysteda] 650 mg tablet 1,300 mg PO TID 5 Days Qty: 30 11RF Referrals: Mali Trinidad MD [Primary Care Provider] -
--- NOTE | 2023-02-11 16:52 | ECG_ITS ---
Test Reason : CHEST PAIN Blood Pressure : / mmHG Vent. Rate : 075 BPM Atrial Rate : 075 BPM P-R Int : 148 ms QRS Dur : 068 ms QT Int : 386 ms P-R-T Axes : 074 022 053 degrees QTc Int : 431 ms Normal sinus rhythm Low voltage QRS Septal infarct (cited on or before 27-SEP-2015) Abnormal ECG When compared with ECG of 13-JUL-2019 11:48, No significant change was found Referred By: Shawnee Fuchs Electronically Signed By:DENISE POWER
[2023-02-11 17:22] LABS: MANUAL DIFF FLAG NO
[2023-02-11 17:28] LABS: INTERNATIONAL NORM RATIO 1.1 (0.9-1.1); Prothrombin Time 12.1 SEC (10.0-13.1)
[2023-02-11 17:32] LABS: Basophils Absolute Auto 0.1 X10*3/uL (0.0-0.2); Eosinophils Percent Auto 0.8 % (0-4); Hematocrit 38.5 % (37.0-47.0); Hemoglobin 13.6 g/dl (12.0-16.0); Imm Gran Abs Auto 0.01 X10*3/uL (0.00-0.03); Imm Gran Pct Auto 0.2 % (0.0-0.4); Lymphocytes Absolute Auto 1.3 X10*3/uL (1.2-4.9); Mean Corpuscular HGB Conc 35.3 g/dl (31.0-35.0); Mean Corpuscular Hemoglobin 31.1 pg (27.0-33.0); Mean Corpuscular Volume 88.1 fL (80.0-98.0); Mean Platelet Volume 9.7 fL (9.4-12.3); Monocytes Absolute Auto 0.3 X10*3/uL (0.1-1.2); Monocytes Percent Auto 6.8 % (2-11); Neutrophils Absolute Auto 3.2 x10*3/uL (2.0-8.3); Neutrophils Percent Auto 65.2 % (45-73); Platelet Count 242 X10*3/uL (160-400); Red Blood Count 4.37 X10*6/uL (4.20-5.50); Red Cell Distribution Width 12.8 % (11.0-16.0); White Blood Count 4.8 X10*3/uL (4.8-10.8)
[2023-02-11 17:47] LABS: Alanine Aminotransferase 13 U/L (0-31); Albumin Level 4.6 g/dL (3.5-5.0); Alkaline Phosphatase 92 U/L (39-117); Anion Gap 14 (12-20); Aspartate Amino Transferase 14 U/L (5-31); Bilirubin Direct 0.1 mg/dL (0.0-0.5); Bilirubin Total 0.5 mg/dL (0.0-1.0); Blood Urea Nitrogen 13 mg/dL (9-16); Carbon Dioxide 23 mmol/L (22-29); Chloride 107 mmol/L (96-108); Creatinine Clr Calc Pharmacy 62.4; Estimated Glomerular Filt Rate > 60; Glucose Random 91 mg/dL (60-115); Potassium 4.1 mmol/L (3.3-5.1); Sodium 140 mmol/L (135-145); Total Protein 7.9 g/dL (6.5-8.0)
[2023-02-11 17:55] LABS: Troponin-I High Sensitivity < 2.7 ng/L (<3.5-17.0)
[2023-02-11 21:32] VITALS: BP 118/70; PULSE 74; PULSE 76; PULSE 78; RESP 14; TEMP 36.4; O2SAT 100
--- OUTSIDE RECORDS SUMMARY | 2023-02-11 21:33 | XMS_ITS | Continuity of Care Document ---
Author Name Unknown Organization [facility] Address [address] [place] [id number]- Care Team Providers Care Dental Scheduler Name Role Phone Amos MILES, Mali Botello Primary Care Physician [place] [facility] [place](s[place] 06/08/21 - 09/06/21 [facility] [address] [place] [id number]- Attending Physician: Antwon Lucio MD Referring Physician: Mali Trinidad MD Allergies, Adverse Reactions, Alerts No Known Medication Allergies
--- OUTSIDE RECORDS SUMMARY | 2023-02-11 21:33 | XMS_ITS | Continuity of Care Document ---
Author Name Unknown Organization [facility] ter Address [address] [place] [phone]- Care Team Providers Care Armature Coil Winder Name Role Phone Not on Staff, PCP Primary Care Physician Unavail able Encounter [facility] Date(s): 07/03/20 - 07/03/[address] [address]- [facility] Discharge Disposition: A-D/C Walkout Attending Physician: Not on Staff, Attending MD Admitting Physician: Not on Staff, Admitting MD Referring Physician: Not on Staff, Referring MD Allergies, Adverse Reactions, Alerts No Known Medication Allergies Vital Signs Most recent to oldest [Reference Range]: 1 2 Oxygen Saturation [94-100 %] 100 % (07/03/20 3:46 PM) 100 % (07/03/20 2:57 PM) Pulse Rate [55-90 bpm] 91 bpm *H* (07/03/20 3:46 PM) 113 bpm *H* (07/03/20 2:57 PM) Blood Pressure [90-138/55-84 mm Hg] 114/ 69mm Hg (07/03/20 3:46 PM) Respiratory Rate [16-30 br/min] 16 br/mi n (07/03/20 3:46 PM) 18 br/min (07/03/20 2:57 PM) Temperature [96.8-100.4 DegF] 98.8 DegF (07/03/20 3:46 PM) Mode of Delivery (Oxygen) Room air (07/03/20 3:46 PM) Room air (07/03/20 2:57 PM) Blood pressure sites Arm, right (07/03/20 3:46 PM) Temperature Route Oral (07/03/20 3:46 PM)
--- OUTSIDE RECORDS SUMMARY | 2023-02-11 21:33 | XMS_ITS | Continuity of Care Document ---
Author Name Unknown Organization [facility] Address [address] [place] [id number]- Care Team Providers Care Wader Boot Top Assembler Name Role Phone Amos MILES, Mali Botello Primary Care Physician Encounter [facility] [place] Date(s): 08/07/21 - 09/06/21 [facility] [address] [place] [id number]- Attending Physician: Eloisa Ren Admitting Physician: Eloisa Ren Referring Physician: Eloisa Ren Allergies, Adverse Reactions, Alerts No Known Medication Allergies
[2023-02-11] MEDS: LORazepam 2 MG/ML VIAL 1 MG IVPUSH (21:52)
[2023-02-11] MEDS: 0.9 % Sodium Chloride 1,000 ML 999 ML IV (21:52)
[2023-02-11 22:02] LABS: Appearance Urine Clear; Color Urine Yellow; Glucose Urine UA Negative (Negative); Leukocyte Esterase Urine Negative (Negative); Nitrite Urine Negative (Negative); PH 5.5 (5.0-9.0); Urine Blood Negative (Negative); Urine Ketones 40 mg/dL (Negative); Urine Protein Negative (Neg-Trace)
[2023-02-11 22:04] LABS: UPreg QC Valid YES; Urine Pregnancy NEGATIVE (NEGATIVE)
[2023-02-12 00:21] VITALS: BP 104/58; PULSE 81; RESP 12; O2SAT 100
== END 2023-02-12 00:23 | disposition home or self-care (01) ==
PROVIDERS: Physician Assistant; Emergency Provider Emergency Medicine; PCP Pediatrics
DX: M79.7 Fibromyalgia (principal); R07.9 Chest pain, unspecified; F41.9 Anxiety disorder, unspecified; R53.1 Weakness
CPT/HCPCS: 36415; 71045; 80048; 80076; 81003; 81025; 83735; 84484; 85025; 85610; 93005; 96361; 96374; 99285; J2060

== ENCOUNTER → 2023-02-12 09:30 | Outpatient (BNVA) | payer MEDICAID, SELFPAY | PROVIDERS: PCP Pediatrics; Visit Provider Obstetrics & Gynecology ==

== ENCOUNTER 2023-02-20 13:03 | Outpatient (REF) | payer MEDICAID, SELFPAY ==
--- NOTE | ~2023-02-20 | MM_ITS ---
EXAMINATION: MM SCREENING DIGITAL BREAST TOMOSYNTHESIS, BILATERAL CLINICAL INFORMATION: Screening. Asymptomatic. The lifetime risk of breast cancer based on the Tyrer-Cuzick Model is 9%. COMPARISON: Mammography: 02/14/2022, 11/06/2020, 11/04/2019, 11/02/2018 TECHNIQUE: Digital breast tomosynthesis is performed in both the craniocaudal and mediolateral oblique views along with computer-aided detection (CAD). Synthesized 2D images are generated from the tomosynthesis. FINDINGS: The breasts are heterogeneously dense, which may obscure small masses (ACR BI-RADS breast composition Category c). Parenchymal pattern is similar to prior studies and there is no developing density or architectural abnormality or abnormal calcifications. Scattered asymmetries are similar to prior exams. The axilla and skin contours are unremarkable. No significant changes. MM/MM tomosynthesis screening BI IMPRESSION: No mammographic evidence of malignancy. ASSESSMENT: BI-RADS 2: Benign RECOMMENDATION: Routine annual mammography screening. This patient's information was entered into a reminder system with a target due date for their next mammogram.
== END 2023-02-20 13:04 | disposition home or self-care (01) ==
LOC: HO.MAMMO 13:03
PROVIDERS: PCP Pediatrics; Referring Provider Obstetrics & Gynecology; Visit Provider Pediatrics
DX: Z12.31 Encounter for screening mammogram for malignant neoplasm of breast (principal)
CPT/HCPCS: 77063; 77067

== ENCOUNTER 2023-03-18 09:34 | Outpatient (REF) | payer MEDICAID, SELFPAY ==
--- NOTE | ~2023-03-18 | MR_ITS ---
EXAMINATION: MRI PELVIS WITH AND WITHOUT CONTRAST CLINICAL INFORMATION: Reason for Exam N83.299 - Other ovarian cyst, unspecified side Chronic pelvic pain. LMP 02/03/2023. COMPARISON: CT abdomen/pelvis 01/29/2023 TECHNIQUE: Multiple routine MRI sequences through the pelvis were obtained on a high-field 1.5 Estefany MRI before and after the uneventful administration of 4.5 mL of Gadavist gadolinium-based IV contrast. FINDINGS: UTERUS: The uterus is anteverted. The uterus measures 8.4 x 4.6 x 5.6 cm. The endometrial stripe measures 0.8 cm in thickness. Junctional zone is preserved. There are few T2 hypointense foci in the posterior myometrium measuring up to 6 mm possibly representing small fibroids. CERVIX: Susceptibility artifact related to prior . VAGINA: Unremarkable. RIGHT OVARY: Unremarkable. LEFT OVARY: Bilobed cyst versus 2 adjacent cysts in the left ovary measures 2.0 x 3.5 x 3.0 cm. No abnormal enhancement. KIDNEYS: Two normally positioned kidneys are seen. No hydronephrosis. BLADDER: Underdistended. PELVIC FREE FLUID: Small. LYMPH NODES: No bulky pelvic lymphadenopathy. MISCELLANEOUS: There is precontrast T1 hypointensity within the right buttock corresponding mild T2 bright signal and no abnormal enhancement. Approximate measurements are 4.0 x 4.9 cm. This may represent scarring/fibrosis. MR/MR pelvis wo/w con IMPRESSION: Bilobed left ovarian cyst versus 2 adjacent cysts measuring 2.0 x 3.5 x 3.0 cm. No abnormal enhancement. No further routine follow-up is needed. Findings likely representing fibrosis/scarring in the right buttock measuring 4.0 x 4.9 cm. Advise clinical correlation.
== END 2023-03-18 09:35 | disposition home or self-care (01) ==
LOC: HO.MRI 09:34
PROVIDERS: PCP Pediatrics; Visit Provider Obstetrics & Gynecology
DX: N83.299 Other ovarian cyst, unspecified side (principal)
CPT/HCPCS: 72197; A9585

== ENCOUNTER 2023-04-03 09:26 | Outpatient (AMB) | payer MEDICAID, SELFPAY ==
[2023-04-03 09:32] VITALS: BP 110/62; BMI 20.3
--- NOTE | 2023-04-03 09:32 | A.OFFVIS_ITS ---
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 CA 125 done in 09/12 and 02/11 within normal. The patient doing well with no complaints. Complaining of right buttock itching and skin lesion on and off Pelvic MRI showed the following: IMPRESSION: Bilobed left ovarian cyst versus 2 adjacent cysts measuring 2.0 x 3.5 x 3.0 cm. No abnormal enhancement. No further routine follow-up is needed. ? Findings likely representing fibrosis/scarring in the right buttock measuring 4.0 x 4.9 cm. Advise clinical correlation. [facility] Medical History Anemia Depression Epicondylitis, lateral, left Epicondylitis, lateral, right Fibromyalgia Fibromyalgia Renal calculi Surgical History History of bilateral tubal ligation History of History of colon surgery Family History Other No family history of cancer Social History Household Members: Children Housing: House Are you a primary veterinarian laboratory animal care to a significant other at home: No Do you presently have visiting nurse or other home services: No Alcohol intake: former Patient Tobacco Use Status: Never used Tobacco service: No Current occupational status: unemployed Current occupation: rt handed Sexual orientation: Straight/Heterosexual Gender identity: Female Female Reproductive History Menstrual Age of Menarche: 10 Date of last menstrual period: 03/25/23 control method: permanent sterilization Date of last pap smear: 03/28/20 (negative) Date of Mammogram: 02/20/23 Review of Systems Const All systems reviewed & are unremarkable except as noted in HPI and below Reports as per HPI and Reports no additional complaints GI Reports no additional complaints Reports no additional complaints Physical Exam Vital Signs: Last Vital Signs BP 110/62 04/03/23 09:32 BMI result Body Mass Index 20.3 Assessment & Plan Assessment & Plan (1) Ovarian cyst: Comment: Either bilobed cyst or 2 simple cyst by MRI Code(s): N83.209 - Unspecified ovarian cyst, unspecified side Plan: Discussed with the patient the results of CA 125 and the finding on pelvic MRI either 2 simple ovarian cysts versus 1 simple cyst by low, no further follow-up recommended by radiologist, will repeat ultrasound in 6 months for follow-up, discussed the patient the limitation of pelvic ultrasound in detecting a 30 premalignant or malignant ovarian pathology and the sensitivity, specificity, false-positive false negative rate of CA 125. All questions answered, the patient verbalized understanding Orders: Orders US pelvic complete 6 Months N83.299 - Other ovarian cyst, unspecified side Coding Level of Care Code Est Pt Level 3 (07141) Diagnoses Ovarian cyst N83.209
== END 2023-04-03 09:48 | disposition home or self-care (01) ==
LOC: HO.HWS 09:26
PROVIDERS: PCP Pediatrics; Visit Provider Obstetrics & Gynecology
DX: N83.209 Unspecified ovarian cyst, unspecified side (principal)
CPT/HCPCS: 99213

== ENCOUNTER → 2023-04-03 09:26 | Outpatient (BNVA) | payer MEDICAID, SELFPAY | PROVIDERS: PCP Pediatrics; Visit Provider Obstetrics & Gynecology | DX: N83.209 Unspecified ovarian cyst, unspecified side (principal) | CPT/HCPCS: 99212 ==

== ENCOUNTER 2023-07-10 16:10 | Outpatient (REF) | payer MEDICAID, SELFPAY ==
[2023-07-10 17:44] LABS: MANUAL DIFF FLAG NO
[2023-07-10 17:49] LABS: Basophils Absolute Auto 0.1 X10*3/uL (0.0-0.2); Basophils Percent Auto 0.8 % (0-2); Eosinophils Absolute Auto 0.2 X10*3/uL (0.0-0.4); Eosinophils Percent Auto 2.6 % (0-4); Hematocrit 40.1 % (37.0-47.0); Hemoglobin 13.6 g/dl (12.0-16.0); Imm Gran Abs Auto 0.02 X10*3/uL (0.00-0.03); Imm Gran Pct Auto 0.3 % (0.0-0.4); Lymphocytes Absolute Auto 1.3 X10*3/uL (1.2-4.9); Lymphocytes Percent Auto 21.6 % (20-40); Mean Corpuscular HGB Conc 33.9 g/dl (31.0-35.0); Mean Corpuscular Hemoglobin 31.1 pg (27.0-33.0); Mean Corpuscular Volume 91.6 fL (80.0-98.0); Mean Platelet Volume 10.4 fL (9.4-12.3); Monocytes Absolute Auto 0.4 X10*3/uL (0.1-1.2); Monocytes Percent Auto 7.2 % (2-11); Neutrophils Absolute Auto 4.2 x10*3/uL (2.0-8.3); Neutrophils Percent Auto 67.5 % (45-73); Platelet Count 246 X10*3/uL (160-400); Red Blood Count 4.38 X10*6/uL (4.20-5.50); Red Cell Distribution Width 13.1 % (11.0-16.0); White Blood Count 6.2 X10*3/uL (4.8-10.8)
[2023-07-10 18:13] LABS: Alanine Aminotransferase 18 U/L (0-31); Albumin Level 4.4 g/dL (3.5-5.0); Alkaline Phosphatase 123 U/L (39-117); Anion Gap 14 (12-20); Aspartate Amino Transferase 19 U/L (5-31); Bilirubin Direct 0.2 mg/dL (0.0-0.5); Bilirubin Total 0.3 mg/dL (0.0-1.0); Blood Urea Nitrogen 12 mg/dL (9-16); Calcium 10.2 mg/dL (8.4-10.2); Carbon Dioxide 24 mmol/L (22-29); Chloride 104 mmol/L (96-108); Estimated Glomerular Filt Rate > 60; Glucose Random 79 mg/dL (60-115); Lipase 14 U/L (8-78); Magnesium 2.1 mg/dL (1.6-2.6); Potassium 3.9 mmol/L (3.3-5.1); Sodium 138 mmol/L (135-145)
[2023-07-10 18:48] LABS: Vitamin B12 445 pg/mL (200-900)
[2023-07-10 18:50] LABS: TSH reflex Free T4 0.71 uIU/mL (0.32-4.0); Vitamin D 25-OH Total 39.4 ng/mL (>30)
== END 2023-07-10 16:11 | disposition home or self-care (01) ==
LOC: HO.CHCLDS 16:10
PROVIDERS: Visit Provider Pediatrics
DX: R63.4 Abnormal weight loss (principal)
CPT/HCPCS: 36415; 80048; 80076; 82306; 82607; 83690; 83735; 84443; 85025

== ENCOUNTER 2023-08-29 09:16 | Outpatient (REF) | payer MEDICAID, SELFPAY ==
--- NOTE | ~2023-08-29 | XR_ITS ---
EXAMINATION: XR CHEST CLINICAL INFORMATION: Left lower rib pain. COMPARISON: Chest x-ray 02/11/2023 TECHNIQUE: 2 views of the chest were obtained. FINDINGS: Cardiac silhouette is normal in size. The lungs are well aerated. There is no lobar consolidation. No pleural effusion or pneumothorax. Mild degenerative changes of the spine. XR/XR chest 2V IMPRESSION: No acute pulmonary pathology.
== END 2023-08-29 09:17 | disposition home or self-care (01) ==
LOC: HO.XRAY 09:16
PROVIDERS: PCP Pediatrics; Visit Provider Internal Medicine Medical Oncology
DX: R07.9 Chest pain, unspecified (principal)
CPT/HCPCS: 71046

== ENCOUNTER 2023-10-06 10:49 | Outpatient (REF) | payer MEDICAID, SELFPAY ==
--- NOTE | ~2023-10-06 | US_ITS ---
EXAMINATION: US PELVIS CLINICAL INFORMATION: Ovarian cyst. COMPARISON: MRI of pelvis from 03/18/2023. Pelvic ultrasound from 08/14/2022 and 12/11/2022. TECHNIQUE: Ultrasound of the pelvis is performed using both transabdominal and transvaginal transducers. Transvaginal imaging is performed to improve visualization of the ovaries. FINDINGS: Uterus: The anteflexed, anteverted uterus measures approximately 7 x 3.2 x 4.8 cm (cervix to fundus x AP x transverse dimension). Small, 0.6 cm and 0.8 cm hypoechoic intramural leiomyomas within the posterior uterine body. The endometrium has normal homogeneous echotexture and measures up to 0.5 cm AP. Adnexa: The right ovary has normal echotexture; it measures 2.2 x 1.6 x 1.3 cm, volume of 2.4 mL. Also, the right ovary had a normal appearance on the MRI from 03/18/2023. The left ovary measures 3.3 x 2.5 x 2 cm, volume of 8.6 mL. A cyst of the left ovary has a simple appearance; there is no visible septation or mural nodularity of this cyst which measures 2.4 x 1.4 x 1.8 cm. This represents decreased size of the cyst which had measured up to 3.5 cm on the MRI from 03/18/2023. Free fluid: Trace physiologic amount of simple appearing free fluid is present in the posterior cul-de-sac. US/US pelvic and transvaginal IMPRESSION: * Small intramural leiomyomas are present in the posterior uterine body. * Simple cyst of the left ovary measures up to 2.4 cm. No follow-up imaging recommended (if patient is asymptomatic).
== END 2023-10-06 10:50 | disposition home or self-care (01) ==
LOC: HO.US 10:49
PROVIDERS: PCP Pediatrics; Visit Provider Obstetrics & Gynecology
DX: N83.299 Other ovarian cyst, unspecified side (principal)
CPT/HCPCS: 76830; 76856

== ENCOUNTER 2023-10-07 09:08 | Outpatient (AMB) | payer MEDICAID, SELFPAY ==
--- NOTE | 2023-10-07 09:11 | MHC.OFFVIS ---
Intake Vital Signs 10/07/23 09:12 Height 5 ft 2 in Weight 115 lb 1.301 oz BMI 21.0 BP 105/70 Blood Pressure Location Lt brachial Position Sitting Pulse 78 Pulse Oximetry (%) 100 Oxygen Delivery Method Room Air Intake Visit Reasons: abdominal pain and colo screening Intake Note: This patient presents for an assessment for abdominal pain and colonoscopy screening. Patient c/o; reports abdominal pain and is unable to eat, reports last colonoscopy was 2 years ago, reports straining with bowel movements, reports history of constipation, reports acid reflux and heartburn. 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 Accompanied by: Other Relationship Allergies No Known Allergies Allergy (Verified 10/07/23 09:14) Medication List - Last Reconciled 10/07/23 by LUIZ Silveira-Carlos cholecalciferol (vitamin D3) 25 mcg PO DAILY cyclobenzaprine 5 mg PO Q8H PRN duloxetine 60 mg PO DAILY ferrous sulfate (Iron (ferrous sulfate)) 325 mg PO BID hydroxyzine HCl 25 mg IM Q6H PRN ibuprofen 600 mg PO Q8H PRN mirtazapine 15 mg PO DAILY omeprazole 20 mg PO BID 30 days pregabalin (Lyrica) 150 mg PO DAILY propranolol 10 mg PO BID pyridoxine (vitamin B6) 100 mg PO DAILY 90 days tranexamic acid (Lysteda) 1,300 mg (2 x 650 mg) PO TID 5 days trazodone 100 mg PO DAILY venlafaxine ER 150 mg PO QAM HPI HPI Comments History of Present Illness Details A 48 y/o female with heartburn for greater than a year- here with niece - who interprets-as well speaks for her She had been taking omeprazole 20mg for many months- works sometimes- she takes prn-intermittent LUQ pain for several years-had testing in the past with no findings Constipation- taking fe supplement- BM QOD she does not have a great appetite- she barely eats-admits to bad depression- lives with her son-sees psychotherapist- phone visits- Her this past year-which has worsened depression-denies suicidal or homicidal ideation No nausea, vomiting, hematemesis, hematochezia fever chills 01/2023- CT stool throughout colon 09/2019-EGD and colonoscopy - LUQ pain- colon- tortuous [facility] Medical History (Updated 10/07/23 @ 11:13 by Inna Cano PA-C) Renal calculi Epicondylitis, lateral, right Epicondylitis, lateral, left Fibromyalgia Anemia Fibromyalgia Depression Surgical History History of colon surgery History of bilateral tubal ligation History of Family History Other No family history of cancer Social History Household Members: Children Housing: House Are you a primary critical care physician to a significant other at home: No Do you presently have visiting nurse or other home services: No Alcohol intake: former Patient Tobacco Use Status: Never used Tobacco service: No Current occupational status: unemployed Current occupation: rt handed Sexual orientation: Straight/Heterosexual Gender identity: Female Female Reproductive History Menstrual Age of Menarche: 10 Review of Systems Const All systems reviewed & are unremarkable except as noted in HPI and below Denies chills, Denies fever(s) and Reports lethargy Card Denies chest pain and Denies dyspnea Resp Denies cough and Denies dyspnea GI Denies hematochezia, Reports constipation, Reports heartburn, Denies nausea and Denies vomiting Psych Reports depression, Denies homicidal ideation and Denies suicidal ideation Physical Exam Vital Signs: Last Vital Signs Pulse 78 10/07/23 09:12 BP 105/70 10/07/23 09:12 Pulse Ox 100 10/07/23 09:12 Oxygen Delivery Method Room Air 10/07/23 09:12 BMI result Body Mass Index 21.0 Const General: cooperative, comfortable, no acute distress and tired appearing Nutritional Appearance: thin Orientation/consciousness: patient oriented x3 Limitations: language barrier Eyes Sclerae: sclerae normal Resp Effort & Inspection: normal respiratory effort and able to speak in complete sentences Auscultation: clear to auscultation bilaterally, no rales, no rhonchi and no wheezes Cardio Rate: regular rate Rhythm: regular rhythm Heart sounds: S1 normal heart sound present and S2 normal heart sound present GI Palpation (GI): Soft to palpation and nontender Auscultation: normal bowel sounds Skin General skin exam: no rashes or lesions noted Neuro General: patient oriented x3 Extrem General: Yes full ROM Psych Appearance: well kempt Affect: Labile affect present Attitude: cooperative Thought content: suicidality and no homicidality Results Reviewed Results Reviewed: XR/XR chest 2V IMPRESSION: No acute pulmonary pathology. 08/29/23- Dr. Watson 48 year-old lady with history of leukopenia. Preliminary workup has been non revealing. She has not had any history of fevers chills night sweats nor frequent infections. Her white count has been holding stable: 3.3 today. 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 PLAN: Will continue to monitor. If she has B symptoms or if WBC count goes down to 2 or below will proceed with a bone marrow exam for further evaluation. 09/2019- Dr. Gomes- for LUQ pain EGD/ colon- bx no HP, no polyps Assessment & Plan Assessment & Plan (1) Abdominal pain: Comment: Chronic abdominal pain, physical exam unremarkable Code(s): R10.9 - Unspecified abdominal pain Plan: reviewed- CT P/E unremarkable (2) Acid reflux: Comment: Taking PPI p.r.n. encouraged daily as well as review reflux precautions Code(s): K21.9 - Gastro-esophageal reflux disease without esophagitis Plan: DAILY ppi reflux precautions omit culprits (3) Depression: Comment: ,1 year Code(s): F32.9 - Major depressive disorder, single episode, unspecified Plan: continue psych (4) Chronic constipation: Comment: poor diet- no fiber fe supplement Code(s): K59.09 - Other constipation Plan: fiber well hydrate Plan DAILY ppi reflux precautions omit culprits fiber well hydrate continue psych Medications: New bisacodyl (Dulcolax (bisacodyl)) 10 mg [place] DAILY PRN 20 ea 0RF constipation calcium polycarbophil (Fiber Laxative (calcium polycarbophil)) 1,250 mg (2 x 625 mg) PO DAILY 30 days 60 tabs 3RF omeprazole 20 mg PO DAILY 30 days PRN 30 caps 5RF reflux docusate sodium (Colace) 200 mg (2 x 100 mg) PO BEDTIME 60 caps 5RF polyethylene glycol 3350 (Miralax) 17 grams PO DAILY 510 grams 6RF Patient Instructions: DAILY ppi reflux precautions reviewed omit culprits Be sure to consume adequate calories fiber/fiber supplement Consistent bowel regimen Maintain well hydration continue psych Encouraged to call with questions or concerns Will follow for progress 6-8 weeks Coding Level of Care Code New Pt Level 4 (22648) Diagnoses Abdominal pain R10.9 Acid reflux K21.9 Depression F32.9 Chronic constipation K59.09 Time Spent (min) 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
[2023-10-07 09:12] VITALS: BP 105/70; PULSE 78; O2SAT 100; BMI 21.0
== END 2023-10-07 10:06 | disposition home or self-care (01) ==
PROVIDERS: PCP Pediatrics; Visit Provider Physician Assistant
DX: K21.9 Gastro-esophageal reflux disease without esophagitis (principal); K59.09 Other constipation; F32.9 Major depressive disorder, single episode, unspecified
CPT/HCPCS: 99203

== ENCOUNTER → 2023-10-07 09:08 | Outpatient (BNVA) | payer MEDICAID, SELFPAY | PROVIDERS: PCP Pediatrics; Visit Provider Physician Assistant | DX: R10.9 Unspecified abdominal pain (principal); K21.9 Gastro-esophageal reflux disease without esophagitis; K59.09 Other constipation; F32.9 Major depressive disorder, single episode, unspecified | CPT/HCPCS: 99212 ==

== ENCOUNTER 2024-12-24 11:45 | Emergency (ER) | payer MEDICAID, SELFPAY ==
--- NOTE | ~2024-12-24 | XR_ITS ---
EXAMINATION: XR CHEST CLINICAL INFORMATION: cough COMPARISON: August 29, 2023 TECHNIQUE: 2 views of the chest were obtained. FINDINGS: No consolidation, pleural effusion or pneumothorax. Decreased AP diameter of the thorax. Mild kyphotic deformity. Cardiomediastinal silhouette size is normal. XR/XR chest 2V IMPRESSION: No acute airspace disease. Stable chest. Electronically signed by: Raj Torres MD 12/24/2024 12:47 PM EDT
[2024-12-24 12:17] VITALS: BP 94/71; PULSE 104; RESP 20; TEMP 37.4; O2SAT 100; BMI 21.9
--- NOTE | 2024-12-24 12:18 | ED_ITS ---
HPI - General Adult General Chief complaint: Upper Respiratory Symptoms Stated complaint: Flu Symptoms Time Seen by Provider: 12/24/24 17:57 Source: patient and educational sign language interpreter (all interactions with this patient were facilitated with an [facility] diplomatic interpreter/translator) Mode of arrival: ambulatory Limitations: language barrier (all interactions with this patient were facilitated with an [facility] diplomatic interpreter/translator) History of Present Illness ED Provider: Yelitza Espinoza PA-C HPI narrative: Patient is a 49 year old assigned female at with a history of anemia, fibromyalgia, and depression presenting to the emergency department today with fevers, body aches, cough, and blistering in her mouth. Patient states that over the last few days she has had a fever, blisters on the roof of her mouth, a cough, and body aches. Patient denies any dizziness, lightheadedness, abdominal pain, nausea, vomiting, chills, blurry vision, double vision, loss of vision, chest pain, difficulty breathing, shortness of breath, back pain, night sweats, pain with urination, increased urinary frequency, increased urinary urgency, blood in her urine or stool, syncope or a near syncopal episode, recent trauma or falls, bowel incontinence, bladder incontinence, or any other complaints at this time. Onset (ago): day(s) Relieving factors: none Exacerbating factors: none Associated symptoms: cough and fever/chills Treatments prior to arrival: none Related Data Home Medications ?Medication ?Instructions ?Recorded ?Confirmed cholecalciferol (vitamin D3) 25 25 mcg PO DAILY 07/24/20 08/29/23 mcg (1,000 unit) capsule duloxetine 60 mg capsule,delayed 60 mg PO DAILY 07/24/20 08/29/23 release hydroxyzine HCl 25 mg/mL 25 mg IM Q6H PRN Anxiety 07/24/20 08/29/23 intramuscular solution mirtazapine 15 mg tablet 15 mg PO DAILY 07/24/20 08/29/23 pregabalin 150 mg capsule (Lyrica) 150 mg PO DAILY 07/24/20 08/29/23 trazodone 100 mg tablet 100 mg PO DAILY 07/24/20 08/29/23 venlafaxine 150 mg 150 mg PO QAM 08/24/20 08/29/23 capsule,extended release 24 hr propranolol 10 mg tablet 10 mg PO BID 03/27/21 08/29/23 cyclobenzaprine 5 mg tablet 5 mg PO Q8H PRN muscle spasm 02/05/22 08/29/23 ibuprofen 600 mg tablet 600 mg PO Q8H PRN Pain 02/05/22 08/29/23 Previous Rx's ?Medication ?Instructions ?Recorded omeprazole 20 mg capsule,delayed 20 mg PO BID 30 days #60 caps 10/05/20 release pyridoxine (vitamin B6) 100 mg 100 mg PO DAILY 90 days #90 tabs 05/24/22 tablet ferrous sulfate 325 mg (65 mg 325 mg PO BID #180 tabs 08/29/22 iron) tablet (Iron (ferrous sulfate)) tranexamic acid 650 mg tablet 1,300 mg (2 x 650 mg) PO TID 5 08/29/22 (Lysteda) days #30 tabs bisacodyl 10 mg rectal suppository 10 mg NM DAILY PRN constipation 10/07/23 (Dulcolax (bisacodyl)) #20 ea calcium polycarbophil 625 mg 1,250 mg (2 x 625 mg) PO DAILY 30 10/07/23 tablet (Fiber Laxative (calcium days #60 tabs polycarbophil)) docusate sodium 100 mg capsule 200 mg (2 x 100 mg) PO BEDTIME #60 10/07/23 (Colace) caps omeprazole 20 mg capsule,delayed 20 mg PO DAILY PRN reflux 30 days 10/07/23 release #30 caps polyethylene glycol 3350 17 17 g PO DAILY #510 grams 10/07/23 gram/dose oral powder (Miralax) Allergies Allergy/AdvReac Type Severity Reaction Status Date / Time No Known Allergies Allergy Verified 12/24/24 12:21 Review of Systems 2 Constitutional: Constitutional: Reports no additional constitutional complaints, Reports body ache(s), Denies chills, Reports fever(s) and Denies night sweats Eyes: Eyes: Reports no additional eye complaints, Denies blurry vision, Denies change in vision, Denies diplopia, Denies eye discharge, Denies loss of vision and Denies eye pain ENT: Denies dizziness Comments: mouth blisters Cardiovascular: Cardiovascular: Reports no additional cardiovascular complaints, Denies chest pain, Denies lightheadedness, Denies Loss of Consciousness and Denies dyspnea Respiratory: Respiratory: Reports no additional respiratory complaints, Reports cough and Denies dyspnea Gastrointestinal: Gastrointestinal: Reports no additional gastrointestinal complaints, Denies abdominal pain, Denies melena, Denies hematochezia, Denies change in bowel habits and Denies change in stool character Genitourinary: Genitourinary: Denies hematuria, Denies urinary frequency, Denies dysuria, Denies urinary incontinence, Denies urinary hesitancy and Denies urinary urgency Musculoskeletal: Musculoskeletal: Reports no additional musculoskeletal complaints, Denies numbness and Denies tingling Neurologic: Denies dizziness, Denies loss of vision, Denies numbness and Denies tingling Psychiatric: Psychiatric: Reports no additional psychiatric complaints Endocrine: Endocrine: Reports no additional endocrine complaints Hematologic/Lymphatic: Hematologic/Lymphatic: Reports no additional hematologic/lymphatic complaints Allergic/Immunologic: Allergic/Immunologic: Reports no additional allergic/immunologic complaints [facility] Past Medical History Attestation statement: The following information was validated with the patient. Source: old records reviewed and nursing notes reviewed Medical History Renal calculi Epicondylitis, lateral, right Epicondylitis, lateral, left Fibromyalgia Anemia Fibromyalgia Depression Surgical History History of colon surgery History of bilateral tubal ligation History of Family History Family History Other No family history of cancer Social History Social History Household Members: Children Housing: House Are you a primary technical healthcare consultant to a significant other at home: No Do you presently have visiting nurse or other home services: No Alcohol intake: former Patient Tobacco Use Status: Never used Tobacco Advance Directives: No Advance Directives Information Provided: No Do you have a plan to hurt others: No Plan service: No Current occupational status: unemployed Current occupation: rt handed Sexual orientation: Straight/Heterosexual Gender identity: Female Physical Exam ED Vital Signs: Vital Signs - 24 hr 12/24/24 12:17 12/24/24 19:06 Temperature 99.3 F 99.3 F Pulse Rate 104 H 104 H Respiratory Rate 20 20 Blood Pressure 94/71 94/71 Pulse Oximetry 100 100 Oxygen Delivery Method Room Air Room Air BMI result Body Mass Index 21.9 Const General: cooperative, no acute distress, alert and awake Nutritional Appearance: well nourished Orientation/consciousness: patient oriented x3 Limitations: no limitations HENMT Head: Yes normal to inspection and Yes atraumatic Ears: hearing grossly normal bilaterally and external ears normal General nose exam: Normal external nose present, no nasal discharge noted and no epistaxis Face and sinus: Yes normal facial exam, No abrasion and No laceration Mouth: Normal oral and palatal mucosa present, no drooling and no muffled voice Eyes General: appearance normal, both eyes and all related structures Periorbital: periorbital findings normal Eyelids: Yes eyelids normal Conjunctivae: conjunctivae normal Pupils: Equal, round and reactive pupils present EOM: EOMs intact bilaterally Neck Neck: Yes normal visual inspection, Yes full ROM and Yes no lymphadenopathy Chest Chest palpation & inspection: normal inspection of the chest Resp Effort & Inspection: normal respiratory effort and able to speak in complete sentences GI Inspection: Yes normal to inspection Neuro General: patient oriented x3, moves all extremities and CN's II-XI intact bilaterally Cranial nerves: Yes Equal, round and reactive pupils present Cognition (Neuro): normal cognition Extrem General: Yes normal to inspection, Yes full ROM and Yes capillary refill normal Psych Appearance: grossly normal Mental Status: mental status grossly normal Affect: normal affect Attitude: cooperative Thought process: Normal thought process present Thought content: Normal thought content present Insight: Good insight present (Psych) Course Course Course Narrative: RME performed by Yelitza Espinoza PA-C. Patient is a 49 year old assigned female at presenting to the emergency department with a fever and feeling generally unwell. Patient states that she has been feeling generally unwell with lesions in her mouth and fever. Detailed physical exam and review of systems are deferred to the mailroom manager. Labs and swabs ordered. Patient placed back in the waiting room pending room availability and results. Medical Decision Making Medical Decision Making MDM Narrative: Patient is a 49 year old assigned female at with a history of anemia, fibromyalgia, and depression presenting to the emergency department today with fevers, body aches, cough, and blistering in her mouth. Patient's physical exam was unremarkable. I did not appreciate any blistering in the mouth as the patient had described. Patient's blood work was unremarkable. Patient's chest x- ray showed no acute process. Patient's influenza test was positive. I explained my physical exam findings as well as all test results to the patient. I answered all questions asked by the patient. I stressed the importance of the patient taking her medication as directed (either prescribed or as the over the counter packaging recommends). I stressed the importance of the patient following up with her primary care provider. I stressed the importance of the patient returning to the emergency department immediately if her symptoms were to worsen or if she were to develop any dizziness, shortness of breath, difficulty breathing, chest pain, blurry vision, loss of vision, nausea, vomiting, abdominal pain, fever, chills, back pain, or any other complaints. Patient verbalized agreement and understanding with this treatment plan and discharge. Differential Diagnosis Differential Diagnoses: The differential diagnosis associated with the presentation includes Influenza COVID-19 Viral illness Cough Admission/Observation Consideration of admission/observation: Escalation of care including admission/observation considered Patient would have been admitted to the hospital had her work up had any findings where hospital admission was appropriate and her clinical presentation warranted hospital admission. Lab Data [facility] Lab Attestation statement: I reviewed the patient's lab results. My interpretation of these results are in the [facility] Rationale portion of this note. 12/24/24 14:03 12/24/24 12:49 Labs: Lab Results 12/24/24 12/24/24 12/24/24 Range/Units 12:48 12:49 14:03 WBC 2.4 L (4.8-10.8) X10*3/uL RBC 4.65 (4.20-5.50) X10*6/uL Hgb 14.2 (12.0-16.0) g/dl Hct 40.2 (37.0-47.0) % MCV 86.5 (80.0-98.0) fL MCH 30.5 (27.0-33.0) pg MCHC 35.3 H (31.0-35.0) g/dl RDW 12.4 (11.0-16.0) % Plt Count 135 L D (160-400) X10*3/uL MPV 10.5 (9.4-12.3) fL Immature Gran % (Auto) 0.0 (0.0-0.4) % Neut % (Auto) 48.2 (45-73) % Lymph % (Auto) 37.0 (20-40) % [place] % (Auto) 14.0 H (2-11) % Eos % (Auto) 0.4 (0-4) % Baso % (Auto) 0.4 (0-2) % Lymph # (Auto) 0.9 L (1.2-4.9) X10*3/uL [place] # (Auto) 0.3 (0.1-1.2) X10*3/uL Eos # (Auto) 0.0 (0.0-0.4) X10*3/uL Baso # (Auto) 0.0 (0.0-0.2) X10*3/uL Abs Immat Gran (auto) 0.00 (0.00-0.03) X10*3/uL Absolute Neuts (auto) 1.1 L (2.0-8.3) x10*3/uL Absolute Nucleated RBC 0.000 (0.0-0.012) X10*3/uL Nucleated RBC % (auto) 0.0 (0.0-0.2) /100WBC Sodium 139 (135-145) mmol/L Potassium 4.8 (3.3-5.1) mmol/L Chloride 106 (96-108) mmol/L Carbon Dioxide 23 (22-29) mmol/L Anion Gap 15 (12-20) BUN 16 (9-16) mg/dL Creatinine 0.84 (0.5-1.4) mg/dL Estim Creat Clear Calc 62.6 Estimated GFR > 60 Random Glucose 90 (60-115) mg/dL Calcium 9.7 (8.4-10.2) mg/dL Magnesium 2.0 (1.6-2.6) mg/dL Total Bilirubin 0.3 (0.0-1.0) mg/dL AST 30 (5-31) U/L ALT 15 (0-31) U/L Alkaline Phosphatase 106 (39-117) U/L Total Protein 8.2 H (6.5-8.0) g/dL Albumin 4.7 (3.5-5.0) g/dL Influenza Type A (PCR) NEGATIVE (Negative) Influenza Type B (PCR) POSITIVE A (Negative) RSV RNA Qual (PCR) NEGATIVE (Negative) SARS-CoV-2 RNA (RT-PCR) NEGATIVE (Negative) S. pyogenes GrpA CARMINA Negative (Negative) Independent Interpretation I performed an independent interpretation of an: Plain X-Ray Interpretation: My interpretation is in agreement with the radiologist's impression of this imaging study. L EXAMINATION: XR CHEST CLINICAL INFORMATION: cough COMPARISON: August 29, 2023 TECHNIQUE: 2 views of the chest were obtained. FINDINGS: No consolidation, pleural effusion or pneumothorax. Decreased AP diameter of the thorax. Mild kyphotic deformity. Cardiomediastinal silhouette size is normal. XR/XR chest 2V IMPRESSION: No acute airspace disease. Stable chest. Electronically signed by: Raj Torres MD 12/24/2024 12:47 PM EDT RP Dictated By: Raj Meza MD Signed By: Electronically signed by Raj Hutchins MD 12/24/24 1247 Radiology Impression Discussion of test interpretation with radiology: I have reviewed the radiologist's reading. Discharge Plan Discharge Clinical Impression: Influenza Patient Disposition: Home, Self-Care Instructions: Influenza (DC) Additional Instructions: Follow up with your primary care provider. Return to the emergency department immediately if your symptoms worsen or if you develop any dizziness, shortness of breath, difficulty breathing, chest pain, blurry vision, loss of vision, nausea, vomiting, abdominal pain, fever, chills, back pain, or any other complaints. Mackenzie?seguimiento?con rivera m?dico de atenci?n primaria. Acuda inmediatamente al servicio de urgencias si ana s?ntomas empeoran o si presenta falta de aliento, dificultad para respirar, dolor tor?cico, mareos, aturdimiento, dolor de espalda, dolor abdominal, fiebre, escalofr?os o cualquier otro s?ntoma. Please see the information below about our Patient Portal. If you are not yet enrolled in the [facility] Patient Portal, you will receive an enrollment email invitation following your visit to any [facility] care setting. You may also self-enroll in the Patient Portal by visiting our website: [email or web address] The following information is required to access the Patient Portal: - Your [facility] Medical Record Number - Your personal home email address (must match what is in your electronic medical record, Registration staff can assist with this) - Name - Date of Capabilities of the Patient Portal: - Message some providers - View upcoming appointments - Access your health summary, medical history, and visit history - View current conditions and allergies - View procedure and lab results - View your medications, including guidelines, side effects, and precautions - Complete pre-appointment questionnaires requested by your provider - Ready summary reports of your office visits and procedures To access the Patient Portal Mobile Nikita, follow these directions: - Search [employer] in the Nikita Store or [employer] Store - Download the Nikita - Search for [facility] - Enter your login/password Portal del paciente Si usted no esta inscrito en el portal de pacientes de [facility], recibira tania invitacion de inscripcion despues de rivera visita al [facility] o al [facility] via correo electronico. Tambien puede inscribirse voluntariamente en el portal de pacientes visitando nuestra pagina web: [email or web address] La siguiente informacion sera requerida para acceder al portal: - Rivera joy de historia medica de [facility] - Rivera direccion de correo electronico personal - Nombre - Fecha de nacimiento Capacidades: Las siguientes capacidades estan disponibles en el portal de pacientes: - Enviar mensajes a algunos doctores - Verificar proximas citas - Acceso a rivera historial de dyana, registro medico e historial de visitas - Alfredo las condiciones actuales y alergias alfredo procedimientos y resultados del laboratorio - Alfredo ana medicamentos, incluyendo las pautas - Efectos secundarios y precauciones - Completar o llenar formularios / cuestionarios de - Citas solicitadas por rivera doctor - Leer los resumenes de reportes medicos de ana visitas y procedimientos [place] acceder a la aplicacion movil: - [facility] [email or web address] [facility] en la Nikita Store o [employer] Store - Descargue la aplicacion - [facility] - Ingrese rivera nombre de usuario / Contrasena Prescriptions: No Action omeprazole 20 mg capsule,delayed release(DR/EC) 20 mg PO BID 30 Days Qty: 60 3RF pyridoxine (vitamin B6) 100 mg tablet 100 mg PO DAILY 90 Days Qty: 90 1RF ferrous sulfate [Iron (ferrous sulfate)] 325 mg (65 mg iron) Tablet 325 mg PO BID Qty: 180 2RF cholecalciferol (vitamin D3) 25 mcg (1,000 unit) capsule 25 mcg PO DAILY trazodone 100 mg tablet 100 mg PO DAILY pregabalin [Lyrica] 150 mg capsule 150 mg PO DAILY mirtazapine 15 mg tablet 15 mg PO DAILY hydroxyzine HCl 25 mg/mL solution 25 mg IM Q6H PRN (Reason: Anxiety) duloxetine 60 mg capsule,delayed release(DR/EC) 60 mg PO DAILY venlafaxine 150 mg capsule,extended release 24hr 150 mg PO QAM propranolol 10 mg tablet 10 mg PO BID ibuprofen 600 mg tablet 600 mg PO Q8H PRN (Reason: Pain) cyclobenzaprine 5 mg tablet 5 mg PO Q8H PRN (Reason: muscle spasm) tranexamic acid [Lysteda] 650 mg tablet 1,300 mg PO TID 5 Days Qty: 30 11RF omeprazole 20 mg capsule,delayed release(DR/EC) 20 mg PO DAILY PRN (Reason: reflux) 30 Days Qty: 30 5RF docusate sodium [Colace] 100 mg capsule 200 mg PO BEDTIME Qty: 60 5RF bisacodyl [Dulcolax (bisacodyl)] 10 mg suppository 10 mg NM DAILY PRN (Reason: constipation) Qty: 20 0RF polyethylene glycol 3350 [Miralax] 17 gram/dose powder 17 g PO DAILY Qty: 510 6RF calcium polycarbophil [Fiber Laxative (ca polycarbo)] 625 mg tablet 1,250 mg PO DAILY 30 Days Qty: 60 3RF Referrals: Mali Trinidad MD [Primary Care Provider] - Interventions: ED Discharge Assessment Last Done: 12/24/24 19:06 Discharge Date/Time: 12/24/24 18:10 Print Language: Greek
[2024-12-24 13:04] LABS: IDNOW Serial# 55D5AD1C; Strep A Nucleic Acid Negative (Negative)
[2024-12-24 13:18] LABS: Alanine Aminotransferase 15 U/L (0-31); Albumin Level 4.7 g/dL (3.5-5.0); Alkaline Phosphatase 106 U/L (39-117); Anion Gap 15 (12-20); Aspartate Amino Transferase 30 U/L (5-31); Bilirubin Total 0.3 mg/dL (0.0-1.0); Blood Urea Nitrogen 16 mg/dL (9-16); Calcium 9.7 mg/dL (8.4-10.2); Carbon Dioxide 23 mmol/L (22-29); Chloride 106 mmol/L (96-108); Creatinine Clr Calc Pharmacy 62.6; Estimated Glomerular Filt Rate > 60; Glucose Random 90 mg/dL (60-115); Potassium 4.8 mmol/L (3.3-5.1); Sodium 139 mmol/L (135-145); Total Protein 8.2 g/dL (6.5-8.0)
[2024-12-24 13:56] LABS: Influenza A PCR NEGATIVE (Negative); Influenza B PCR POSITIVE (Negative); Resp Syncy Virus RNA Qual PCR NEGATIVE (Negative); SARS COV2 PCR INHOUSE NEGATIVE (Negative)
[2024-12-24 14:08] LABS: Basophils Percent Auto 0.4 % (0-2); Eosinophils Percent Auto 0.4 % (0-4); Hematocrit 40.2 % (37.0-47.0); Hemoglobin 14.2 g/dl (12.0-16.0); Lymphocytes Absolute Auto 0.9 X10*3/uL (1.2-4.9); Mean Corpuscular HGB Conc 35.3 g/dl (31.0-35.0); Mean Corpuscular Hemoglobin 30.5 pg (27.0-33.0); Mean Corpuscular Volume 86.5 fL (80.0-98.0); Mean Platelet Volume 10.5 fL (9.4-12.3); Monocytes Absolute Auto 0.3 X10*3/uL (0.1-1.2); Neutrophils Absolute Auto 1.1 x10*3/uL (2.0-8.3); Neutrophils Percent Auto 48.2 % (45-73); Platelet Count 135 X10*3/uL (160-400); Red Blood Count 4.65 X10*6/uL (4.20-5.50); Red Cell Distribution Width 12.4 % (11.0-16.0)
[2024-12-24 14:09] LABS: White Blood Count 2.4 X10*3/uL (4.8-10.8)
--- OUTSIDE RECORDS SUMMARY | 2024-12-24 18:11 | XMS_ITS | Encounter Summary ---
Author Organization [facility] Address [address] [place] [address] Care Team Providers Care Teller Supervisor Name Role Phone Mali Trinidad MD Primary Care Provider [phone] Encounter Details Date Type Department Care Team (Late st Contact Info) Description 07/28/2023 Abstract [facility] [address] [place] [address] Funmilayo Davies Social History Tobacco Use Types Packs/Day Years Used Date Smoking Tobacco: Never Smokeless Tobacco: Never Depression Answer Date Recorded Patient Health Questionnaire-9 Score 23 01/16/2023 Housing Stability Answer Date Recorded What is your housing situation today? I have harvey daly 07/10/[address] you li ve. Do you have problems with any of the following? None of the above 07/10/2023 Food Insecurity Answer Date Recorded Within the past 12 months, y ou worried that your food would run out before you got money to buy more: Never True 07/10/2023 Within the past 12 months,th e food you bought just didn't last and you didn't have enough money to get more: Never True Transportation Answer Date Recorded In the past 12 months, has l ack of transportation kept you from medical appts, meetings, work or from getting things needed for daily living? No 07/10/2023 Utilities Answer Date Recorded In the past 12 months, has t he electric, gas, oil or water company threatened to shut off services in your home? No 07/10/2023 Depression Answer Date Recorded Patient Health Questionnaire-2 Score 6 01/16/2023 Comments Unknown Sex and Gender Information Value Date Recorded Sex Assigned at Female 07/22/2022 10:18 AM EDT Legal Sex Female 10:18 AM EDT Gender Identity Choose not to disclose 2 10:18 AM EDT Sexual Orientation Choose not to disclose 2021 10:18 AM EDT documented as of this encounter Plan of Treatment Not on file documented as of this encounter Procedures Procedure Name Priority Date/Time Associated Diagnosis Comments COLONOSCOPY Routine 09/23/2019 documented in this encounter Results * Colonoscopy (09/23/2019) Colonoscopy Normal Normal Narrative Funmilayo Davies - 09/23/2019 Recommended 10 year follow up us Historical Provider HEALTH MAINTENANCE Final Result documented in this encounter Visit Diagnoses Not on filedocumented in this encounter Additional Health Concerns Assessment Noted Time PHQ-9 Depression Total Score: 23 01/16/ 023 3:56 PM EDT documented as of this encounter Care Teams Teller Supervisor Relationship Specialty Start Date End Date Mali Trinidad MD [address] [place] [id number] PCP - General Family Medicine 09/22/18 Arminda Dias Animal HandlerNutrition And Dietetics Instructor 08/21/23 documented as of this encounter
--- OUTSIDE RECORDS SUMMARY | 2024-12-24 18:11 | XMS_ITS | Encounter Summary ---
Author Organization [facility] Address [address] [place] [address] [address] [place] [address] Care Team Providers Care Superintendent House Name Role Phone Mali Trinidad MD Primary Care Provider [phone] Encounter Details Date Type Department Care Team ([facility] st Contact Info) Description 12/12/2022 Orders Only [facility] [address] [place], [place] [id number] Janeth Womack LPN Social History Tobacco Use Types Packs/Day Years Used Date Smoking Tobacco: Never Assessed Comments Unknown Sex and Gender Information Value Date Recorded Sex Assigned at Female 07/22/2022 10:18 AM EDT Legal Sex Female 10:18 AM EDT Gender Identity Choose not to disclose 10:18 AM EDT Sexual Orientation Choose not to disclose 2021 10:18 AM EDT COVID-19 Exposure Response Date Recorded In the last 10 days, have yo u been in contact with someone who was confirmed or suspected to have Coronavirus/COVID-19? No / Unsure 12/13/2022 1:35 PM EDT documented as of this encounter Plan of Treatment Not on file documented as of this encounter Visit Diagnoses Not on filedocumented in this encounter Care Teams Superintendent House Relationship Specialty Start Date End Date Mali Trinidad MD [address] [place] [address] PCP - General Family Medicine 09/22/18 Arminda Dias Blood Bank CustodianBridge Ironworker 08/21/23 documented as of this encounter
--- OUTSIDE RECORDS SUMMARY | 2024-12-24 18:11 | XMS_ITS | Clinical Summary ---
Author Organization [employer] Address [address] [facility] [address] [place] [address] Care Team Providers Care Bias Cutter Helper Name Role Phone Mali Trinidad MD Primary Care Provider [phone] Allergies No known active allergies Medications DULoxetine (Cymbalta) [address] capsule TAKE 1 CAPSULE BY MOUTH TWICE A DAY 60 capsule 3 3 Active mirtazapine (Remeron) 15 MG tablet TAKE 1 TABLET BY MOUTH EVERY DAY BEFORE BEDTIME 30 tablet 3 3 Active omeprazole (PriLOSEC) [address] capsule TAKE 1 CAPSULE BY MOUTH EVERY 12 HOURS BEFORE A MEAL 180 capsule 1 3 Active cholecalciferol (Vitamin D-3) 50 MCG (1999 UT) capsule Take by mouth 2 times daily. 2 Active cyclobenzaprine (Flexeril) 5 MG tablet TAKE 1 TABLET BY ORAL ROUTE EVERY 8 HOURS NEEDED FOR MUSCLE SPASM NEEDED 2 Active Diclofenac Sodium 1 % gel Apply topically 2 times daily. to affected area 2 Active dicyclomine (Bentyl) 20 MG tablet TAKE 1 TABLET BY ORAL ROUTE 3 TIMES EVERY DAY PRIOR MEALS 2 Active ferrous sulfate 325 (65 Fe) MG tablet Take 1 tablet by mouth 2 times daily. 2 Active propranolol (Inderal) 10 MG tablet TAKE 1 TABLET BY MOUTH EVERY DAY NEEDED FOR ANXIETY, MAY REPEAT ONE TIME 2 Active pyridoxine (Vitamin B-6) 100 MG tablet Take 100 mg by mouth in the morning. 2 Active SUMAtriptan (Imitrex) 50 MG tablet TAKE 1 TABLET BY MOUTH EVERY DAY NEEDED AT LEAST 2 HOURS BETWEEN DOSES 2 Active topiramate (Topamax) 50 MG tablet take 1 tablet by oral before bedtime 2 Active hydrOXYzine pamoate (Vistaril) 50 MG capsule TAKE 1 CAPSULE BY MOUTH 3 TIMES EVERY DAY NEEDED FOR ANXIETY 90 capsule 3 3 Active traZODone (Desyrel) 100 MG tablet TAKE 1 TABLET BY MOUTH EVERY DAY ONE DOSE 30 tablet 3 3 Active DULoxetine (Cymbalta) [address] capsule Take 30 mg by mouth in the morning. 3 Active Active Problems Problem Noted Date Diagnosed Date Erosive gastritis 06/15/2020 Severe recurrent major depre ssion without psychotic features 11/19/2018 Fibromyalgia 06/11/2018 Anemia 05/22/2018 Fatigue 02/19/2018 Lymphocytopenia 02/19/2018 Heartburn 05/26/2013 Irritable bowel syndrome with diarrhea 2 Encounters Date Type Department Care Team Description 12/24/2024 Orders Only [facility] External Provider, [facility] 12/03/2024 Population Health Risk Score [facility] Department [address] [phone] Provider, Population Health Generic 11/12/2024 Telephone [facility] [address] [place] [address] Mali Trinidad MD Nurse Triage from Last 3 Months Social History Tobacco Use Types Packs/Day Years Used Date Smoking Tobacco: Never Smokeless Tobacco: Never Tobacco Cessation:Counseling Given: Not Answered Depression Answer Date Recorded Patient Health Questionnaire-9 Score 23 01/16/2023 Housing Stability Answer Date Recorded What is your housing situation today? I have harveywily daly 07/10/[address] you [...] enough money to get more: Never True 10/ Transportation Answer Date Recorded In the past [...] not to disclose 2021 10:18 AM EDT Last Filed Vital Signs Vital Sign Reading Time Taken Comments Blood Pressure 112/74 07/10/2023 3:44 PM EDT Pulse 93 07/10/2023 3:44 PM EDT Temperature 36.6 ??C (97.8 ??F) 07/10/2023 3:44 PM ED T Respiratory Rate 18 07/10/2023 3:44 PM EDT Oxygen Saturation 98% 07/10/2023 3:44 PM EDT Inhaled Oxygen Concentration - - Weight 49.2 kg (108 lb 8 oz) 07/10/2023 3:44 PM EDT Height 157.5 cm (5' 2 ) 07/10/2023 3:44 PM EDT Body Mass Index 19.84 07/10/2023 3:44 PM EDT Plan of Treatment Health Maintenance Due Date Last Done Comments CT Colonography 1973 FIT DNA/Cologuard 1973 FIT 1975 HIV Screening 1975 Sigmoidoscopy 1973 Alcohol/Substance Use Screening 1985 Family Planning (PISQ) 1988 Hepatitis C Screening 1991 Hepatitis B Vaccines (1 of 3 - 19+ 3-dose series) 1992 DTaP/Tdap/Td Vaccines (1 - Tdap) 08/08/2017 08/07/2017 FOBT 05/24/2021 05/24/2020 Pneumococcal Vaccine: 50+ Years (1 of 1 - PCV) 2023 Zoster Vaccines (1 of 2) 2023 Depression Monitoring (PHQ-9) 07/18/2023 01/16/2023, 01/16/2023 Tobacco Screening 12/14/2023 12/13/2022 Depression Screening 01/17/2024 01/16/2023, 01/17/20 23 COVID-19 Vaccine ( - season) 2024 Influenza Vaccine (#1) 2024 9, 06/11/2018, 08/07/2017, Additional history exists SDOH Screening 07/10/2024 07/10/2023 Mammogram 02/20/2025 02/20/2023, 10/23, 11/06/2020, Additional history exists Cervical Cancer Screening 03/27/2025 HPV/Cotest 03/27/2025 03/27/2020 Pap Smear 03/27/2025 03/27/2020 Colonoscopy 09/23/2029 09/23/2019 Colorectal Cancer Screening 09/23/2029 RSV Patients and Patients Aged 60 years or older (1 - 1-dose 75+ series) 2048 HIB Vaccines Aged Out No longer eligi ble based on patient's age to complete this topic HPV Vaccines Aged Out No longer eligi ble based on patient's age to complete this topic Hepatitis A Vaccines Aged Out No long er eligible based on patient's age to complete this topic IPV Vaccines Aged Out No longer eligi ble based on patient's age to complete this topic Meningococcal Vaccine Aged Out No jevon jose rafael eligible based on patient's age to complete this topic RSV under 20 months Aged Out No longe r eligible based on patient's age to complete this topic Rotavirus Vaccines Aged Out No longer eligible based on patient's age to complete this topic Procedures Procedure Name Priority Date/Time Associated Diagnosis Comments CBC WITH AUTO DIFFERENTIAL Routine 12/24/2024 2:03 PM EDT MAGNESIUM Routine 12/24/2024 12:49 PM EDT COMPREHENSIVE METABOLIC PANEL Routine 12/24/2024 12:49 PM EDT SARS COV2/INFLUENZA A/B AND RSV RNA QL NAAT Routine 12/24/2024 12:49 PM EDT STREP A NUCLEIC ACID Routine 12/24/2024 12:48 PM EDT XR CHEST 2 VIEWS Routine 12/24/2024 12:1 9 PM EDT BI MAMMOGRAM SCREENING TOMOSYNTHESIS BILATERAL Routine 02/20/2023 1:57 PM EDT OCCULT BLOOD, FECAL, IMMUNOASSAY Routine 05/24/2020 11:39 AM EDT HM PAP/HPV Routine 03/27/2020 HM COLONOSCOPY Routine 09/23/2019 from Last 3 Months or Most Recently Relevant to Health Maintenance Results * (ABNORMAL) CBC auto differential (12/24/2024 2:03 PM EDT) White Blood Count 2.4(L) 4.8 - 10.8 X10*3/uL [facility] Red Blood Count 4.65 4.20 - 5.50 X10*6/uL [facility] Hemoglobin 14.2 12.0 - 16.0 g/dl [facility] Hematocrit 40.2 37.0 - 47.0 % [facility] Mean Corpuscular Volume 86.5 80.0 - 98.0 fL [facility] Mean Corpuscular Hemoglobin 30.5 27.0 - 33.0 pg [facility] Mean Corpuscular HGB Conc 35.3(H) 31.0 - 35.0 g/dl [facility] Red Cell Distribution Width 12.4 11.0 - 16.0 % [facility] Platelet Count 135(L) 160 - 400 X10*3/uL [facility] Mean Platelet Volume 10.5 9.4 - 12.3 fL [facility] Neutrophils Percent Auto 48.2 45 - 73 % [facility] Imm Gran Pct Auto 0.0 0.0 - 0.4 % [facility] Lymphocytes Percent Auto 37.0 20 - 40 % [facility] Monocytes Percent Auto 14.0(H) 2 - 11 % [facility] Eosinophils Percent Auto 0.4 0 - 4 % [facility] Basophils Percent Auto 0.4 0 - 2 % [facility] NRBC Pct Auto 0.0 0.0 - 0.2 /100WBC [facility] Neutrophils Absolute Auto 1.1(L) 2.0 - 8.3 x10*3/uL [facility] Imm Gran Abs Auto 0.00 0.00 - 0.03 X10*3/uL [facility] Lymphocytes Absolute Auto 0.9(L) 1.2 - 4.9 X10*3/uL [facility] Monocytes Absolute Auto 0.3 0.1 - 1.2 X10*3/uL [facility] Eosinophils Absolute Auto 0.0 0.0 - 0.4 X10*3/uL [facility] Basophils Absolute Auto 0.0 0.0 - 0.2 X10*3/uL [facility] NRBC Abs Auto 0.000 0.0 - 0.012 X10*3/uL [facility] 12/24/2024 2:03 PM EDT 12/24/2024 2:05 PM EDT Narrative [facility] - 12/24/2024 2:09 PM EDT SPECIMEN CLOTTED us Generic External Data Provider LAB BLOOD ORDERAB LES Edited Result - Final [facility] [address] [place] [phone] * (ABNORMAL) SARS-CoV-2 RNA, Influenza A/B, and RSV RNA, Ql NAAT (12/24/2024 12:49 PM EDT) Influenza A PCR NEGATIVE Negative [facility] Influenza B PCR POSITIVE(A) Negative [facility] Resp Syncy Virus RNA Qual PCR NEGATIVE Negative [facility] SARS COV2 PCR NEGATIVE Negative [facility] Comment:All test results mus t be correlated with clinical findings.Negative results do not preclude SARS-CoV2, influenza Avirus, influenza B virus and/or RSV infectionand should not be used as the sole basis for treatment orother patient management decisions. Negative results must becombined with clinical observations, patient history, andepidemiological information.This test has not been evaluated for monitoring treatment ofinfection.This test has been authorized by the FDA under an EmergencyUse Authorization (EUA) for use by authorized laboratories.Testing performed on the [employer] GeneXpert utilizingreal-time RT-PCR.All SARS CoV2 and positive influenza A/B results arereported to [facility]. 12/24/2024 12:4 9 PM EDT 12/24/2024 12:51 PM EDT Generic External Data Provider LAB MICROBIOLOGY - GENERAL ORDERABLES Final Result Performing Organization Address [facility]/ZIP Co de Phone Number [facility] [address] [place] [phone] * Magnesium (12/24/2024 12:49 PM EDT) Magnesium 2.0 1.6 - 2.6 mg/dL [facility] 12/24/2024 12:4 9 PM EDT 12/24/2024 12:51 PM EDT Generic External Data Provider LAB BLOOD ORDERAB LES Final Result Performing Organization Address [facility] Co de Phone Number [facility] [address] [place] [phone] * (ABNORMAL) Comprehensive Metabolic Panel (12/24/2024 12:49 PM EDT) Sodium 139 135 - 145 mmol/L [facility] Potassium 4.8 3.3 - 5.1 mmol/L [facility] Comment:Slight Hemolysis.Int erpret result with caution. Chloride 106 96 - 108 mmol/L [facility] Carbon Dioxide 23 22 - 29 mmol/L [facility] Anion Gap 15 12 - 20 [facility] Urea Nitrogen (BUN) 16 9 - 16 mg/dL [facility] Creatinine, Serum 0.84 0.5 - 1.4 mg/dL [facility] Creatinine Clr Calc Pharmacy 62.6 [facility] Comment:Provided height and weight: 157.48 cm,54.431 kg.eGFR (calculated from the MDRD study equation) and eCrCl(calculated from the Cockcroft-Gault equation) are based ondifferent parameters and may not yield comparable results.If eCrCl result is absurd, please check patient'sheight/weight. Estimated Glomerular Filt Rate >60 [facility] Comment:Chronic Kidney Disea se: Estimated GFR < 60 mL/min/1.06t5Fypktt Kidney Disease: Estimated GFR < 15 mL/min/1.73m2 Glucose 90 60 - 115 mg/dL [facility] Calcium 9.7 8.4 - 10.2 mg/dL [facility] Bilirubin, Total 0.3 0.0 - 1.0 mg/dL [facility] Aspartate Amino Transferase 30 5 - 31 U/L [facility] Comment:Slight Hemolysis.Int erpret result with caution. Alanine Aminotransferase 15 0 - 31 U/L [facility] Total Protein 8.2(H) 6.5 - 8.0 g/dL [facility] Albumin Level 4.7 3.5 - 5.0 g/dL [facility] Alkaline Phosphatase 106 39 - 117 U/L [facility] 12/24/2024 12:4 9 PM EDT 12/24/2024 12:51 PM EDT us Generic External Data Provider LAB BLOOD ORDERAB LES Final Result [facility] [address] [place] [phone] * Strep A Nucleic Acid (12/24/2024 12:48 PM EDT) IDNOW SERIAL# [id number] [facility] Strep A Nucleic Acid Negative Negative [facility] Comment:All test results mus t be correlated with clinical findings.This test has not been evaluated for monitoring treatment ofinfection.Additional follow-up testing using the culture method isrequired if the result is negative and clinical symptomspersist, or in the event of an acute rheumatic feveroutbreak. 12/24/2024 12:4 8 PM EDT 12/24/2024 12:51 PM EDT us Generic External Data Provider LAB MICROBIOLOGY - GENERAL ORDERABLES Final Result [facility] [address] [place] [phone] * XR Chest 2 Views (12/24/2024 12:19 PM EDT) Anatomical Region Laterality Modality Chest Radiographic Henna ging 12/24/2024 12:1 9 PM EDT Narrative 12/24/2024 12:50 PM EDT ? [facility] ?[address] ?[place] [address] ?XRay Report ? Signed ? Patient: Wen Kim ?MR#: [id number] ?? [id number] ? : 1975 ?Acct:[id number] ? Age/Sex: 49 / F ?ADM Date: 12/24/24 ? Loc: HO.ED ? Attending Dr: ? Ordering Physician: Yelitza Espinoza ?? Date of Service: 12/24/24 ?? Procedure(s): XR chest 2V ?? Accession Number(s): [id number] ? cc: Mali Trinidad MD; Yelitza Espinoza ? EXAMINATION: ?? XR CHEST ? CLINICAL INFORMATION: ?? cough ? COMPARISON: ?? August 29, 2023 ? TECHNIQUE: ?? 2 views of the chest were obtained. ? FINDINGS: ?? No consolidation, pleural effusion or pneumothorax. Decreased AP ?? diameter of the thorax. Mild kyphotic deformity. ?? Cardiomediastinal silhouette size is normal. ? XR/XR chest 2V ?? IMPRESSION: ?? No acute airspace disease. Stable chest. ? Electronically signed by: ??Raj Torres MD ??12/24/2024 12:47 PM ?? EDT RP ? Dictated By: ?Raj Meza MD ? Signed By: ?<Electronically signed by Raj Hutchins MD in OV> ? 12/24/24 1247 ? DD/ 1219 ? TD/TT: 12/24/24 1230 ? Band Director: ? Procedure Note Donotuseinterpreter, Image - 12/24/[address] [address] XRay Report Signed Patient: Wen Kim MMR#: [id number] : 1975Acct:[id number] Age/Sex: 49 / FADM Date: 12/24/24 Loc: .ED Attending Dr: Ordering Physician: Yelitza Espinoza Date of Service: 12/24/24 Procedure(s): XR chest 2V Accession Number(s): [id number] cc: Mali Trinidad MD; Yelitza Espinoza EXAMINATION: XR CHEST CLINICAL INFORMATION: cough COMPARISON: August 29, 2023 TECHNIQUE: 2 views of the chest were obtained. FINDINGS: No consolidation, pleural effusion or pneumothorax. Decreased AP diameter of the thorax. Mild kyphotic deformity. Cardiomediastinal silhouette size is normal. XR/XR chest 2V IMPRESSION: No acute airspace disease. Stable chest. Electronically signed by: Raj Torres MD 12/24/2024 12:47 PM EDT Dictated By: Raj Meza MD Signed By: <Electronically signed by Raj Hutchins MDin OV> 12/24/24 1247 DD/ 1219 TD/TT: 12/24/24 1230 Band Director: [facility] External Provider IMG XR PROCEDURES Final Result * BI Mammogram Screening Tomosynthesis Bilateral (02/20/2023 1:57 PM EDT) Anatomical Region Laterality Modality Breast Bilateral Mammography 02/20/2023 1:57 PM EDT Narrative 02/22/2023 12:22 PM EDT ? [facility] ? [address] ?[place] [address] ? Mammography Report ? Signed ? Patient: Kim,Wen ?MR#: [id number] ?? [id number] ? : 1975 ?Acct:[id number] ? Age/Sex: 47 / F ?ADM Date: 02/20/23 ? Loc: HO.MAMMO ? Attending Dr: Mali Trinidad MD ? Ordering Physician: Jose Smith MD ?Results: 2Benign ?? Findings ? Date of Service: 02/20/23 ?Follow Up: 1 Year From Orig ?? inal Mammogram ? Procedure(s): MM tomosynthesis screening BI ?? Accession Number(s): [id number] ? cc: Jose Smith MD ? EXAMINATION: ?? MM SCREENING DIGITAL BREAST TOMOSYNTHESIS, BILATERAL ? CLINICAL INFORMATION: ? Screening. Asymptomatic. ? The lifetime risk of breast cancer based on the Tyrer-Cuzick Model is ?? 9%. ? COMPARISON: ?? Mammography: 02/14/2022, 11/06/2020, 11/04/2019, 11/02/2018 ? TECHNIQUE: ?? Digital breast tomosynthesis is performed in both the craniocaudal and ?? mediolateral oblique views along with computer-aided detection (CAD). ?? Synthesized 2D images are generated from the tomosynthesis. ? FINDINGS: ?? The breasts are heterogeneously dense, which may obscure small masses ?? (ACR BI-RADS breast composition Category c). ? Parenchymal pattern is similar to prior studies and there is no ?? developing density or architectural abnormality or abnormal ?? calcifications. Scattered asymmetries are similar to prior exams. The ?? axilla and skin contours are unremarkable. No significant changes. ? MM/MM tomosynthesis screening BI ?? IMPRESSION: ?? No mammographic evidence of malignancy. ? ASSESSMENT: ? BI-RADS 2: Benign ? RECOMMENDATION: ?? Routine annual mammography screening. ? This patient's information was entered into a reminder system with a ?? target due date for their next mammogram. ? Dictated By: ?Khanh Livingston MD ? Signed By: ?<Electronically signed by Khanh Livingston MD in OV> ?02/22/23 1219 ? DD/ 1357 ? TD/TT: ? Band Director: MANE ? Procedure Note Donbrennonter, Image - 03/20/2023 [facility] [address] [place] [address] Mammography Report Signed Patient: Phyllis Kim#: [id number] : 1975Acct:[id number] Age/Sex: 47 / FADM Date: 02/20/23 Loc: [facility] Attending Dr: Mali Trinidad MD Ordering Physician: Jose Smith MDResults: 2Benign Findings Date of Service: 02/20/23Follow Up: 1 Year From Orig inal Mammogram Procedure(s): MM tomosynthesis screening BI Accession Number(s): [id number] cc: Jose Smith MD EXAMINATION: MM SCREENING DIGITAL BREAST TOMOSYNTHESIS, BILATERAL CLINICAL INFORMATION: Screening. Asymptomatic. The lifetime risk of breast cancer based on the Tyrer-Cuzick Model is 9%. COMPARISON: Mammography: 02/14/2022, 11/06/2020, 11/04/2019, 11/02/2018 TECHNIQUE: Digital breast tomosynthesis is performed in both the craniocaudal and mediolateral oblique views along with computer-aided detection (CAD). Synthesized 2D images are generated from the tomosynthesis. FINDINGS: The breasts are heterogeneously dense, which may obscure small masses (ACR BI-RADS breast composition Category c). Parenchymal pattern is similar to prior studies and there is no developing density or architectural abnormality or abnormal calcifications. Scattered asymmetries are similar to prior exams. The axilla and skin contours are unremarkable. No significant changes. MM/MM tomosynthesis screening BI IMPRESSION: No mammographic evidence of malignancy. ASSESSMENT: BI-RADS 2: Benign RECOMMENDATION: Routine annual mammography screening. This patient's information was entered into a reminder system with a target due date for their next mammogram. Dictated By: Khanh Livingston MD Signed By: <Electronically signed by Khanh Livingston MD in OV> 02/22/23 1219 DD/ 1357 TD/TT: Band Director: MANE [facility] External Provider IMG BI PROCEDURES Edited Result - Final * OCCULT BLOOD STOOL (05/24/2020 11:39 AM EDT) OCCULT BLOOD STOOL NEG NEG [facility] 05/24/2020 11:3 9 AM EDT Historical Provider LAB BODY FLUIDS AND STOOL S ORDERABLES Final Result [facility] [address] * Pap Smear (03/27/2020) Pap Negative for intraephithelial lesion or malignancy Negative for intraephithelial lesion or malignancy, Other HPV Undetected Undetected, Indeterminate, Quantitative, Not Detected Historical Provider HEALTH MAINTENANCE Final Result * Hm Colonoscopy (09/23/2019) Colonoscopy Normal Normal Narrative Funmilayo Davies - 09/23/2019 Recommended 10 year follow up us Historical Provider HEALTH MAINTENANCE Final Result from Last 3 Months or Most Recently Relevant to Health Maintenance Insurance Care Teams Bias Cutter Helper Relationship Specialty Start Date End Date Mali Trinidad MD [address] [place] [phone] PCP - General Family Medicine 09/22/18 Arminda Dias [employer] ConsultantMedical Office Manager 08/21/23
--- OUTSIDE RECORDS SUMMARY | 2024-12-24 18:12 | XMS_ITS | Encounter Summary ---
Author Organization [employer] Address [address] [facility] 7t [place] [address] Care Team Providers Care Domestic Technician Name Role Phone Mali Trinidad MD Primary Care Provider [phone] Encounter Details Date Type Department Care Team ([facility] Contact Info) Description 12/24/2024 Orders Only [facility] External Provider, [facility] Social History Tobacco Use Types Packs/Day Years [...] AUTO DIFFERENTIAL Routine 12/24/2024 2:03 PM EDT SARS COV2/INFLUENZA A/B AND RSV RNA QL NAAT Routine 12/24/2024 12:49 PM EDT MAGNESIUM Routine 12/24/2024 12:49 PM EDT COMPREHENSIVE METABOLIC PANEL Routine 12/24/2024 12:49 PM EDT STREP A NUCLEIC ACID Routine 12/24/2024 12:48 PM EDT XR CHEST 2 VIEWS Routine 12/24/2024 12:1 9 PM EDT documented in this encounter Results * (ABNORMAL) CBC auto differential (12/24/2024 2:03 PM EDT) White Blood Count 2.4(L) 4.8 - 10.8 X10*3/uL [facility] Red Blood Count 4.65 4.20 - 5.50 X10*6/uL [facility] Hemoglobin 14.2 12.0 - 16.0 g/dl [facility] Hematocrit 40.2 37.0 - 47.0 % [facility] Mean Corpuscular Volume 86.5 80.0 - 98.0 fL [facility] Mean Corpuscular Hemoglobin 30.5 27.0 - 33.0 pg [facility] Mean Corpuscular HGB Conc 35.3(H) 31.0 - 35.0 g/dl [facility] Red Cell Distribution Width 12.4 11.0 - 16.0 % [facility] Platelet Count 135(L) 160 - 400 X10*3/uL [facility] Mean Platelet Volume 10.5 9.4 - 12.3 fL [facility] Neutrophils Percent Auto 48.2 45 - 73 % [facility] Imm Gran Pct Auto 0.0 0.0 - 0.4 % [facility] Lymphocytes Percent Auto 37.0 20 - 40 % [facility] Monocytes Percent Auto 14.0(H) 2 - 11 % [facility] Eosinophils Percent Auto 0.4 0 - 4 % [facility] Basophils Percent Auto 0.4 0 - 2 % [facility] NRBC Pct Auto 0.0 0.0 - 0.2 /100WBC [facility] Neutrophils Absolute Auto 1.1(L) 2.0 - 8.3 x10*3/uL [facility] Imm Gran Abs Auto 0.00 0.00 - 0.03 X10*3/uL [facility] Lymphocytes Absolute Auto 0.9(L) 1.2 - 4.9 X10*3/uL [facility] Monocytes Absolute Auto 0.3 0.1 - 1.2 X10*3/uL [facility] Eosinophils Absolute Auto 0.0 0.0 - 0.4 X10*3/uL [facility] Basophils Absolute Auto 0.0 0.0 - 0.2 X10*3/uL [facility] NRBC Abs Auto 0.000 0.0 - 0.012 X10*3/uL [facility] 12/24/2024 2:03 PM EDT 12/24/2024 2:05 PM EDT Narrative [facility] - 12/24/2024 2:09 PM EDT SPECIMEN CLOTTED us Generic External Data Provider LAB BLOOD ORDERAB LES Edited Result - Final [facility] [address] [place] [address] [phone] * (ABNORMAL) SARS-CoV-2 RNA, Influenza A/B, and RSV RNA, Ql NAAT (12/24/2024 12:49 PM EDT) Influenza A PCR NEGATIVE Negative [facility] Influenza B PCR POSITIVE(A) Negative [facility] Resp Syncy Virus RNA Qual PCR NEGATIVE Negative [facility] SARS COV2 PCR NEGATIVE Negative [facility] Comment:All test results mus t be [...] use by authorized laboratories.Testing performed on the [employer] GeneXpert utilizingreal-time RT-PCR.All SARS CoV2 and positive influenza A/B results arereported to [facility]. 12/24/2024 12:4 9 PM EDT 12/24/2024 12:51 PM EDT Generic External Data Provider LAB MICROBIOLOGY - GENERAL ORDERABLES Final Result Performing Organization Address [facility] Co de Phone Number [facility] [address] [place] [phone] * Magnesium (12/24/2024 12:49 PM EDT) Pathologist [facility] Magnesium 2.0 1.6 - 2.6 mg/dL [facility] 12/24/2024 12:4 9 PM EDT 12/24/2024 12:51 PM EDT Generic External Data Provider LAB BLOOD ORDERAB LES Final Result Performing Organization Address [facility] Co de Phone Number [facility] [address] [place] [phone] * (ABNORMAL) Comprehensive Metabolic Panel (12/24/2024 12:49 PM EDT) Sodium 139 135 - 145 mmol/L [facility] Potassium 4.8 3.3 - 5.1 mmol/L [facility] Comment:Slight Hemolysis.Int erpret result with caution. Chloride 106 96 - 108 mmol/L [facility] Carbon Dioxide 23 22 - 29 mmol/L [facility] Anion Gap 15 12 - 20 [facility] Urea Nitrogen (BUN) 16 9 - 16 mg/dL [facility] Creatinine, Serum 0.84 0.5 - 1.4 mg/dL [facility] Creatinine Clr Calc Pharmacy 62.6 [facility] Comment:Provided height and weight: 157.48 cm,54.431 kg.eGFR (calculated from the MDRD study equation) and eCrCl(calculated from the Cockcroft-Gault equation) are based ondifferent parameters and may not yield comparable results.If eCrCl result is absurd, please check patient'sheight/weight. Estimated Glomerular Filt Rate >60 [facility] Comment:Chronic Kidney Disea se: Estimated GFR < 60 mL/min/1.69s0Qpexcu Kidney Disease: Estimated GFR < 15 mL/min/1.73m2 Glucose 90 60 - 115 mg/dL [facility] Calcium 9.7 8.4 - 10.2 mg/dL [facility] Bilirubin, Total 0.3 0.0 - 1.0 mg/dL [facility] Aspartate Amino Transferase 30 5 - 31 U/L [facility] Comment:Slight Hemolysis.Int erpret result with caution. Alanine Aminotransferase 15 0 - 31 U/L [facility] Total Protein 8.2(H) 6.5 - 8.0 g/dL [facility] Albumin Level 4.7 3.5 - 5.0 g/dL [facility] Alkaline Phosphatase 106 39 - 117 U/L [facility] 12/24/2024 12:4 9 PM EDT 12/24/2024 12:51 PM EDT us Generic External Data Provider LAB BLOOD ORDERAB LES Final Result [facility] [address] [place] [address] [phone] * Strep A Nucleic Acid (12/24/2024 12:48 PM EDT) IDNOW SERIAL# [id number] [facility] Strep A Nucleic Acid Negative Negative [facility] Comment:All test results mus t be [...] GENERAL ORDERABLES Final Result Performing Organization Address [facility] Co de Phone Number [facility] [address] [place] [address] [phone] * XR Chest 2 Views (12/24/2024 12:19 PM EDT) Anatomical Region Laterality Modality Chest Radiographic Henna ging 12/24/2024 12:1 9 PM EDT Narrative 12/24/2024 12:50 PM EDT ? [facility] ?[address] ?[place] [address] ?XRay Report ? Signed ? Patient: Wen Kim M ?MR#: [id number] ?? [id number] ? : 1975 ?Acct:[id number] ? Age/Sex: 49 / F ?ADM Date: 12/24/24 ? Loc: HO.ED ? Attending Dr: ? Ordering Physician: Yelitza Espinoza ?? Date of Service: 12/24/24 ?? Procedure(s): XR chest 2V ?? Accession Number(s): [id number] ? cc: Mali Trinidad MD; Yelitza Espinoza [...] DD/ 1219 ? TD/TT: 12/24/24 1230 ? Dial Brusher: ? Procedure Note Donbrennonter, Image - 12/24/[address] [address] XRay Report Signed Patient: Wen Kim MMR#: [id number] : 1975Acct:[id number] Age/Sex: 49 / FADM Date: 12/24/24 Loc: HO.ED Attending Dr: Ordering Physician: Yelitza Espinoza Date of Service: 12/24/24 Procedure(s): XR chest 2V Accession Number(s): [id number] cc: Mali Trinidad MD; Yelitza Espinoza EXAMINATION: [...] 12/24/24 1247 DD/ 1219 TD/TT: 12/24/24 1230 Dial Brusher: [facility] External Provider IMG XR PROCEDURES Final Result documented in this encounter Visit Diagnoses Not on filedocumented in this encounter Additional Health Concerns Assessment Noted Time PHQ-9 Depression Total Score: 023 3:56 PM EDT documented as of this encounter Care Teams Domestic Technician Relationship Specialty Start Date End Date Mali Trinidad MD [address] [place] [address] PCP - General Family Medicine 09/22/18 Arminda Dias Guest Services AssociateBiodiesel Processing Technician 08/21/23 documented as of this encounter
[2024-12-24 19:06] VITALS: BP 94/71; PULSE 104; RESP 20; TEMP 37.4; O2SAT 100
== END 2024-12-24 18:10 | disposition home or self-care (01) ==
PROVIDERS: Physician Assistant Medical; Emergency Provider Emergency Medicine Emergency Medical Services; PCP Pediatrics
DX: J10.1 Influenza due to other identified influenza virus with other respiratory manifestations (principal); R50.9 Fever, unspecified; M79.10 Myalgia, unspecified site; R05.9 Cough, unspecified; Z03.818 Encounter for observation for suspected exposure to other biological agents ruled out; Z79.899 Other long term (current) drug therapy
CPT/HCPCS: 0241U; 71046; 80053; 83735; 85025; 87651; 99282; 99283

== ENCOUNTER → 2024-12-24 12:19 | Outpatient (BNV) | payer MEDICAID, SELFPAY | PROVIDERS: PCP Pediatrics; Visit Provider Radiology Diagnostic Radiology | DX: R05.9 Cough, unspecified (principal) | CPT/HCPCS: 71046 ==

== ENCOUNTER 2024-12-30 21:07 | Emergency (ER) | payer MEDICAID, SELFPAY ==
--- NOTE | ~2024-12-30 | XR_ITS ---
EXAMINATION: XR LUMBOSACRAL SPINE CLINICAL INFORMATION: low back pain COMPARISON: 10/17/2015. TECHNIQUE: Three views of the lumbosacral spine. FINDINGS: No scoliosis. Normal lordosis. Normal alignment without subluxation. No fracture, compression deformity, or suspicious bone lesion. Disc spaces appear preserved. Facets appear normally aligned. No significant facet arthrosis. 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 The sacrum and SI joints appear grossly normal. There are normal soft tissues. XR/XR lumbar spine 2-3V IMPRESSION: Normal lumbar radiographs. Electronically signed by: Trey Jean MD 12/31/2024 09:07 AM EDT
[2024-12-30 21:10] VITALS: BP 124/78; PULSE 89; RESP 20; TEMP 36.5; O2SAT 99; BMI 22.7
[2024-12-30 21:30] LABS: Basophils Percent Auto 0.6 % (0-2); Eosinophils Absolute Auto 0.1 X10*3/uL (0.0-0.4); Eosinophils Percent Auto 1.4 % (0-4); Hematocrit 36.2 % (37.0-47.0); Hemoglobin 13.5 g/dl (12.0-16.0); Imm Gran Abs Auto 0.01 X10*3/uL (0.00-0.03); Imm Gran Pct Auto 0.2 % (0.0-0.4); Lymphocytes Absolute Auto 1.9 X10*3/uL (1.2-4.9); Lymphocytes Percent Auto 39.3 % (20-40); MANUAL DIFF FLAG NO; Mean Corpuscular HGB Conc 37.3 g/dl (31.0-35.0); Mean Corpuscular Hemoglobin 31.5 pg (27.0-33.0); Mean Corpuscular Volume 84.4 fL (80.0-98.0); Monocytes Absolute Auto 0.4 X10*3/uL (0.1-1.2); Monocytes Percent Auto 7.7 % (2-11); Neutrophils Absolute Auto 2.5 x10*3/uL (2.0-8.3); Neutrophils Percent Auto 50.8 % (45-73); Platelet Count 207 X10*3/uL (160-400); Red Blood Count 4.29 X10*6/uL (4.20-5.50); Red Cell Distribution Width 11.9 % (11.0-16.0); White Blood Count 4.9 X10*3/uL (4.8-10.8)
[2024-12-30 21:51] LABS: Alanine Aminotransferase 19 U/L (0-31); Albumin Level 4.4 g/dL (3.5-5.0); Alkaline Phosphatase 95 U/L (39-117); Anion Gap 16 (12-20); Aspartate Amino Transferase 27 U/L (5-31); Bilirubin Total 0.5 mg/dL (0.0-1.0); Blood Urea Nitrogen 12 mg/dL (9-16); Calcium 9.5 mg/dL (8.4-10.2); Carbon Dioxide 23 mmol/L (22-29); Chloride 108 mmol/L (96-108); Creatinine Clr Calc Pharmacy 73.8; Estimated Glomerular Filt Rate > 60; Glucose Random 105 mg/dL (60-115); Potassium 3.7 mmol/L (3.3-5.1); Sodium 143 mmol/L (135-145); Total Protein 7.3 g/dL (6.5-8.0)
[2024-12-30 22:10] LABS: Influenza A PCR NEGATIVE (Negative); Influenza B PCR NEGATIVE (Negative); Resp Syncy Virus RNA Qual PCR NEGATIVE (Negative); SARS COV2 PCR INHOUSE NEGATIVE (Negative)
[2024-12-31 01:45] VITALS: BP 107/46; PULSE 78; RESP 20; TEMP 36.6; O2SAT 100
[2024-12-31] MEDS: ondansetron HCL 4 MG/2 ML VIAL IVPUSH (01:57)
[2024-12-31 02:10] LABS: Appearance Urine Clear; Color Urine Yellow; Glucose Urine UA Negative (Negative); Leukocyte Esterase Urine Small (1+) (Negative); Nitrite Urine Negative (Negative); PH 7.5 (5.0-9.0); Specific Gravity - Urine 1.025 (1.005-1.025); UMIC TRIGGER UACC YES; Urine Blood Negative (Negative); Urine Ketones 15 mg/dL (Negative); Urine Protein Trace mg/dL (Neg-Trace)
--- OUTSIDE RECORDS SUMMARY | 2024-12-31 02:10 | XMS_ITS | Clinical Summary ---
Author Organization [employer] Address [address] [facility] [address] [place] [address] Care Team Providers Care Computer Artist Name Role Phone Mali Trinidad MD Primary Care Provider [phone] Allergies No known active allergies Medications DULoxetine [...] Department Care Team Description 12/24/2024 Orders Only [facility] External Provider, [facility] 12/03/2024 Population Health Risk Score [facility] Department [address] [phone] Provider, Population Health Generic 11/12/2024 Telephone [facility] [address] [place] [address] Mali Trinidad MD Nurse Triage [...] Vaccines (1 of 2) 2023 Depression Monitoring 07/18/2023 01/16/2023, 023 Tobacco Screening 12/14/2023 12/13/2022 Depression Screening 01/17/2024 01/16/2023, 01/17/20 23 COVID-19 Vaccine ( season) 2024 Influenza Vaccine (#1) 2024 9, [...] Procedure Name Priority Date/Time Associated Diagnosis Comments PATHOLOGIST REVIEW - CBC Routine 12/24/2024 2:03 PM EDT CBC WITH AUTO DIFFERENTIAL Routine 12/24/2024 2:03 [...] Recently Relevant to Health Maintenance Results * Pathologist Review - CBC (12/24/2024 2:03 PM EDT) Pathologist Review - CBC SEE NOTE [facility] Comment:Leukopenia, compatib le with the patient?s current viral(influenza) infection. Follow-up CBC after resolution ofacute process recommended.Amalia English MD 12/24/2024 2:03 PM EDT 12/24/2024 2:05 PM EDT Narrative [facility] - 12/27/2024 5:45 PM EDT SPECIMEN CLOTTED us Generic External Data Provider LAB BLOOD ORDERAB LES Final Result [facility] [address] [place] [address] [phone] * (ABNORMAL) CBC auto differential (12/24/2024 2:03 PM EDT) White Blood Count 2.4(L) 4.8 - 10.8 X10*3/uL [facility] Red Blood Count 4.65 4.20 - 5.50 X10*6/uL [facility] Hemoglobin 14.2 12.0 - 16.0 g/dl [facility] Hematocrit 40.2 37.0 - 47.0 % [facility] Mean Corpuscular Volume 86.5 80.0 - 98.0 fL [facility] Mean Corpuscular Hemoglobin 30.5 27.0 - 33.0 pg [facility] Mean Corpuscular HGB Conc 35.3(H) 31.0 - 35.0 g/dl [facility] Red Cell Distribution Width 12.4 11.0 - 16.0 % [facility] Platelet Count 135(L) 160 - 400 X10*3/uL [facility] Mean Platelet Volume 10.5 9.4 - 12.3 fL [facility] Neutrophils Percent Auto 48.2 45 - 73 % [facility] Imm Gran Pct Auto 0.0 0.0 - 0.4 % [facility] Lymphocytes Percent Auto 37.0 20 - 40 % [facility] Monocytes Percent Auto 14.0(H) 2 - 11 % [facility] Eosinophils Percent Auto 0.4 0 - 4 % [facility] Basophils Percent Auto 0.4 0 - 2 % [facility] NRBC Pct Auto 0.0 0.0 - 0.2 /100WBC [facility] Neutrophils Absolute Auto 1.1(L) 2.0 - 8.3 x10*3/uL [facility] Imm Gran Abs Auto 0.00 0.00 - 0.03 X10*3/uL [facility] Lymphocytes Absolute Auto 0.9(L) 1.2 - 4.9 X10*3/uL [facility] Monocytes Absolute Auto 0.3 0.1 - 1.2 X10*3/uL [facility] Eosinophils Absolute Auto 0.0 0.0 - 0.4 X10*3/uL [facility] Basophils Absolute Auto 0.0 0.0 - 0.2 X10*3/uL [facility] NRBC Abs Auto 0.000 0.0 - 0.012 X10*3/uL [facility] 12/24/2024 2:03 PM EDT 12/24/2024 2:05 PM EDT Narrative [facility] - 12/27/2024 5:45 PM EDT SPECIMEN CLOTTED Generic External Data Provider LAB BLOOD ORDERAB LES Edited Result - Final Performing Organization Address [facility]/ZIP Co de Phone Number [facility] [address] [place] [phone] * (ABNORMAL) SARS-CoV-2 RNA, Influenza A/B, and RSV RNA, Ql NAAT (12/24/2024 12:49 PM EDT) [facility] Influenza A PCR NEGATIVE Negative [facility] Influenza B PCR POSITIVE(A) Negative [facility] Resp Syncy Virus RNA Qual PCR NEGATIVE Negative [facility] SARS COV2 PCR NEGATIVE Negative [facility] Comment:All test results mus t be [...] use by authorized laboratories.Testing performed on the [employer] GeneXpert utilizingreal-time RT-PCR.All SARS CoV2 and positive influenza A/B results arereported to [facility]. 12/24/2024 12:4 9 PM EDT 12/24/2024 12:51 PM EDT Generic External Data Provider LAB MICROBIOLOGY - GENERAL ORDERABLES Final Result Performing Organization Address [facility]/ZIP Co de Phone Number [facility] [address] [place] [phone] * Magnesium (12/24/2024 12:49 PM EDT) Magnesium 2.0 1.6 - 2.6 mg/dL [facility] 12/24/2024 12:4 9 PM EDT 12/24/2024 12:51 PM EDT us Generic External Data Provider LAB BLOOD ORDERAB LES Final Result [facility] [address] [place] [phone] [phone] * (ABNORMAL) Comprehensive Metabolic Panel (12/24/2024 12:49 PM EDT) Sodium 139 135 - 145 mmol/L [facility] Potassium 4.8 3.3 - 5.1 mmol/L [facility] Comment:Slight Hemolysis.Int erpret result with caution. Chloride 106 96 - 108 mmol/L [facility] Carbon Dioxide 23 22 - 29 mmol/L [facility] Anion Gap 15 12 - 20 [facility] Urea Nitrogen (BUN) 16 9 - 16 mg/dL [facility] Creatinine, Serum 0.84 0.5 - 1.4 mg/dL [facility] Creatinine Clr Calc Pharmacy 62.6 [facility] Comment:Provided height and weight: 157.48 cm,54.431 kg.eGFR (calculated from the MDRD study equation) and eCrCl(calculated from the Cockcroft-Gault equation) are based ondifferent parameters and may not yield comparable results.If eCrCl result is absurd, please check patient'sheight/weight. Estimated Glomerular Filt Rate >60 [facility] Comment:Chronic Kidney Disea se: Estimated GFR < 60 mL/min/1.04x7Cemksj Kidney Disease: Estimated GFR < 15 mL/min/1.73m2 Glucose 90 60 - 115 mg/dL [facility] Calcium 9.7 8.4 - 10.2 mg/dL [facility] Bilirubin, Total 0.3 0.0 - 1.0 mg/dL [facility] Aspartate Amino Transferase 30 5 - 31 U/L [facility] Comment:Slight Hemolysis.Int erpret result with caution. Alanine Aminotransferase 15 0 - 31 U/L [facility] Total Protein 8.2(H) 6.5 - 8.0 g/dL [facility] Albumin Level 4.7 3.5 - 5.0 g/dL [facility] Alkaline Phosphatase 106 39 - 117 U/L [facility] 12/24/2024 12:4 9 PM EDT 12/24/2024 12:51 PM EDT Generic External Data Provider LAB BLOOD ORDERAB LES Final Result Performing Organization Address [facility] de Phone Number [facility] [address] [place] [address] [phone] * Strep A Nucleic Acid (12/24/2024 12:48 PM EDT) IDNOW SERIAL# [id number] [facility] Strep A Nucleic Acid Negative Negative [facility] Comment:All test results mus t be correlated with clinical findings.This test has not been evaluated for monitoring treatment ofinfection.Additional follow-up testing using the culture method isrequired if the result is negative and clinical symptomspersist, or in the event of an acute rheumatic feveroutbreak. 12/24/2024 12:4 8 PM EDT 12/24/2024 12:51 PM EDT Generic External Data Provider LAB MICROBIOLOGY - GENERAL ORDERABLES Final Result Performing Organization Address [facility] de Phone Number [facility] [address] [place] [address] [phone] * XR Chest 2 Views (12/24/2024 12:19 PM EDT) Anatomical Region Laterality Modality Chest Radiographic Henna ging 12/24/2024 12:1 9 PM EDT Narrative 12/24/2024 12:50 PM EDT ? [facility] ?[address] ?[place] [address] ?XRay Report ? Signed ? Patient: Kim,Wen M ?MR#: [id number] ?? [id number] ? : 1975 ?Acct:[id number] ? Age/Sex: 49 / F ?ADM Date: 12/24/24 ? Loc: HO.ED ? Attending Dr: ? Ordering Physician: Yelitza Espinoza ?? Date of Service: 12/24/24 ?? Procedure(s): XR chest 2V ?? Accession Number(s): [id number] ? cc: Mali Trinidad MD; Yelitza Espinoza [...] DD/ 1219 ? TD/TT: 12/24/24 1230 ? Expedition Supervisor: ? Procedure Note Ariella, Image - 12/24/[address] [address] XRay Report Signed Patient: Wen Kim MMR#: [id number] : 1975Acct:[id number] Age/Sex: 49 / FADM Date: 12/24/24 Loc: HO.ED Attending Dr: Ordering Physician: Yelitza Espinoza Date of Service: 12/24/24 Procedure(s): XR chest 2V Accession Number(s): [id number] cc: Mali Trinidad MD; Yelitza Espinoza EXAMINATION: [...] Raj Torres MD 12/24/2024 12:47 PM EDT RP Dictated By: Raj Meza MD Signed By: <Electronically signed by Raj Hutchins MDin OV> 12/24/24 1247 DD/ 1219 TD/TT: 12/24/24 1230 Expedition Supervisor: [facility] External Provider IMG XR PROCEDURES Final Result * BI Mammogram Screening Tomosynthesis Bilateral (02/20/2023 1:57 PM EDT) Anatomical Region Laterality Modality Breast Bilateral Mammography 02/20/2023 1:57 PM EDT Narrative 02/22/2023 12:22 PM EDT ? [facility] ? [address] ?[place] [address] ? Mammography Report ? Signed ? Patient: Kim,Wen ?MR#: [id number] ?? [id number] ? : 1975 ?Acct:[id number] ? Age/Sex: 47 / F ?ADM Date: 06// ? Loc: HO.MAMMO ? Attending Dr: Mali Trinidad MD ? Ordering Physician: Jose Smith MD ?Results: 2Benign ?? Findings ? Date of Service: 02/20/23 ?Follow Up: 1 Year From Orig ?? inal Mammogram ? Procedure(s): MM tomosynthesis screening BI ?? Accession Number(s): [id number] ? cc: Jose Smith MD ? EXAMINATION: [...] MD in OV> ?02/22/23 1219 ? DD/ ? TD/TT: ? Expedition Supervisor: MANE ? Procedure Note Ariella, Image - 03/20/2023 [facility] [address] [place], [place] [address] Mammography Report Signed Patient: Phyllis Kim#: [id number] : 1975Acct:[id number] Age/Sex: 47 / FADM Date: 02/20/23 Loc: HO.MAMMO Attending Dr: Mali Trinidad MD Ordering Physician: Jose Smith MDResults: 2Benign Findings Date of Service: 02/20/23Follow Up: 1 Year From Orig inal Mammogram Procedure(s): MM tomosynthesis screening BI Accession Number(s): [id number] cc: Jose Smith MD EXAMINATION: MM SCREENING [...] in OV> 02/22/23 1219 DD/ 1357 TD/TT: Expedition Supervisor: MANE [facility] External Provider IMG BI PROCEDURES Edited Result - Final * OCCULT BLOOD STOOL (05/24/2020 11:39 AM EDT) OCCULT BLOOD STOOL NEG NEG [facility] 05/24/2020 11:3 9 AM EDT Historical Provider LAB BODY FLUIDS AND STOOL S ORDERABLES Final Result [facility] [address] * Pap Smear (03/27/2020) Pap Negative for intraephithelial lesion or malignancy Negative for intraephithelial lesion or malignancy, Other HPV Undetected Undetected, Indeterminate, Quantitative, Not Detected Historical Provider HEALTH MAINTENANCE Final Result * Colonoscopy (09/23/2019) Colonoscopy Normal Normal Narrative Funmilayo Davies - 09/23/2019 Recommended 10 year follow up Historical Provider HEALTH MAINTENANCE Final Result from Last 3 Months or Most Recently Relevant to Health Maintenance [place] [id number] C3 Care Teams Computer Artist Relationship Specialty Start Date End Date Mali Trinidad MD [address] [place] [phone] PCP - General Family Medicine 09/22/18 Arminda Dias Curing Oven AttendantMine Shifter 08/21/23
--- OUTSIDE RECORDS SUMMARY | 2024-12-31 02:10 | XMS_ITS | Encounter Summary ---
Author Organization [employer] Address [address] [place] [address] [address] [place] [address] Care Team Providers Care Poultry Sexer Name Role Phone Mali Trinidad MD Primary Care Provider [phone] Encounter Details Date Type Department Care Team ([facility] st Contact Info) Description 12/12/2022 Orders Only [facility] MED & PEDS [address], [place] [phone] Janeth Womack LPN Social History Tobacco Use [...] on filedocumented in this encounter Care Teams Poultry Sexer Relationship Specialty Start Date End Date Mali Trinidad MD [address] [place] [address] PCP - General Family Medicine 09/22/18 Arminda Dias Intelligence ApplicationsDirector Of Digital Platforms 08/21/23 documented as of this encounter
[2024-12-31 02:25] LABS: Bacteria Urine None Seen (None Seen); Hyaline Casts Urine 0-2 /LPF (0-2); RBC Urine 0-2 /HPF (0-2); Squamous Epithelial Cell Urine 0-2 /HPF (0-2); UACC Culture Trigger YES; WBC Urine 0-5 /HPF (0-5)
[2024-12-31 04:56] VITALS: BP 101/65; PULSE 64; RESP 12; TEMP 36.7; O2SAT 99
[2024-12-31 07:15] VITALS: BP 103/64; PULSE 61; RESP 15; TEMP 37; O2SAT 100
[2024-12-31] MEDS: Ketorolac Tromethamine 15 MG/ML VIAL IVPUSH (09:00)
[2024-12-31] MEDS: Cyclobenzaprine HCl 10 MG TABLET PO (09:00)
[2024-12-31] MEDS: 0.9 % Sodium Chloride 1,000 ML 999 ML IV (09:00)
--- NOTE | 2024-12-31 09:19 | ED.GENADULT ---
HPI - General Adult General Chief complaint: General Medical Stated complaint: vomiting fever back pain, right arm pain Time Seen by Provider: 12/31/24 08:03 Source: patient, RN notes reviewed and old records reviewed Mode of arrival: ambulatory History of Present Illness ED Provider: Shawnee Fuchs PA-C HPI narrative: 49-year-old female with a past medical history of anemia, fibromyalgia, depression, recent influenza B on 12/24/2024, presenting to the ED complaining of abdominal pain, nausea, vomiting, diarrhea, headache, neck pain radiating to RLE, myalgias, fatigue, lightheadedness x few days. Also reports acute on chronic back pain x awhile. Denies fever, chills, vision change or loss, incontinence / retention, hematuria, bloody stool/melena, focal weakness Related Data Home Medications ?Medication ?Instructions ?Recorded ?Confirmed cholecalciferol (vitamin D3) 25 25 mcg PO DAILY 07/24/20 08/29/23 mcg (1,000 unit) capsule duloxetine 60 mg capsule,delayed 60 mg PO DAILY 07/24/20 08/29/23 release hydroxyzine HCl 25 mg/mL 25 mg IM Q6H PRN Anxiety 07/24/20 08/29/23 intramuscular solution mirtazapine 15 mg tablet 15 mg PO DAILY 07/24/20 08/29/23 pregabalin 150 mg capsule (Lyrica) 150 mg PO DAILY 07/24/20 08/29/23 trazodone 100 mg tablet 100 mg PO DAILY 07/24/20 08/29/23 venlafaxine 150 mg 150 mg PO QAM 08/24/20 08/29/23 capsule,extended release 24 hr propranolol 10 mg tablet 10 mg PO BID 03/27/21 08/29/23 cyclobenzaprine 5 mg tablet 5 mg PO Q8H PRN muscle spasm 02/05/22 08/29/23 ibuprofen 600 mg tablet 600 mg PO Q8H PRN Pain 02/05/22 08/29/23 Previous Rx's ?Medication ?Instructions ?Recorded omeprazole 20 mg capsule,delayed 20 mg PO BID 30 days #60 caps 10/05/20 release pyridoxine (vitamin B6) 100 mg 100 mg PO DAILY 90 days #90 tabs 05/24/22 tablet ferrous sulfate 325 mg (65 mg 325 mg PO BID #180 tabs 08/29/22 iron) tablet (Iron (ferrous sulfate)) tranexamic acid 650 mg tablet 1,300 mg (2 x 650 mg) PO TID 5 08/29/22 (Lysteda) days #30 tabs bisacodyl 10 mg rectal suppository 10 mg WA DAILY PRN constipation 10/07/23 (Dulcolax (bisacodyl)) #20 ea calcium polycarbophil 625 mg 1,250 mg (2 x 625 mg) PO DAILY 30 10/07/23 tablet (Fiber Laxative (calcium days #60 tabs polycarbophil)) docusate sodium 100 mg capsule 200 mg (2 x 100 mg) PO BEDTIME #60 10/07/23 (Colace) caps omeprazole 20 mg capsule,delayed 20 mg PO DAILY PRN reflux 30 days 10/07/23 release #30 caps polyethylene glycol 3350 17 17 g PO DAILY #510 grams 10/07/23 gram/dose oral powder (Miralax) acetaminophen 500 mg tablet 500 mg PO Q6H PRN fever or pain 12/31/24 (Tylenol Extra Strength) #14 tabs cyclobenzaprine 5 mg tablet 5 mg PO Q8H PRN pain (scale score 12/31/24 7-10) 5 days #14 tabs lidocaine 5 % topical patch 1 patch topical DAILY PRN pain #30 12/31/24 (Lidoderm) ea naproxen 500 mg tablet 500 mg PO BID PRN pain 10 days #20 12/31/24 tabs Allergies Allergy/AdvReac Type Severity Reaction Status Date / Time No Known Allergies Allergy Verified 12/30/24 21:12 Review of Systems Review of Systems: Yes all other systems are reviewed and are negative Constitutional: Constitutional: Reports as per HPI Neurologic: Denies Abnormal speech present [facility] Past Medical History Attestation statement: The following information was validated with the patient. Source: old records reviewed Medical History Renal calculi Epicondylitis, lateral, right Epicondylitis, lateral, left Fibromyalgia Anemia Fibromyalgia Depression Surgical History History of colon surgery History of bilateral tubal ligation History of Family History Family History Other No family history of cancer Social History Social History Household Members: Children Housing: House Are you a primary manager critical care to a significant other at home: No Do you presently have visiting nurse or other home services: No Alcohol intake: former Patient Tobacco Use Status: Never used Tobacco service: No Current occupational status: unemployed Current occupation: rt handed Sexual orientation: Straight/Heterosexual Gender identity: Female Physical Exam ED Vital Signs: Vital Signs - 24 hr 12/30/24 21:10 12/31/24 01:45 12/31/24 04:56 Temperature 97.7 F 97.9 F 98.0 F Pulse Rate 89 78 64 Respiratory Rate 20 20 12 Blood Pressure 124/78 107/46 L 101/65 Pulse Oximetry 99 100 99 Oxygen Delivery Method Room Air Room Air Room Air 12/31/24 07:15 12/31/24 09:48 12/31/24 11:13 Temperature 98.6 F 97.7 F 98.5 F Pulse Rate 61 57 78 Respiratory Rate 15 16 18 Blood Pressure 103/64 106/60 115/65 Pulse Oximetry 100 100 95 Oxygen Delivery Method Room Air Room Air Room Air 12/31/24 11:14 Temperature 98.5 F Pulse Rate 78 Respiratory Rate 18 Blood Pressure 115/65 Pulse Oximetry 95 Oxygen Delivery Method Room Air BMI result Body Mass Index 22.7 Const General: cooperative, healthy appearing and no acute distress Orientation/consciousness: patient oriented x3 Limitations: no limitations HENMT Head: Yes normal to inspection and Yes atraumatic Ears: hearing grossly normal bilaterally General nose exam: Normal external nose present Face and sinus: Yes normal facial exam Eyes General: appearance normal, both eyes and all related structures Pupils: Equal, round and reactive pupils present EOM: EOMs intact bilaterally Neck Neck: Yes normal visual inspection and Yes no meningeal signs Resp Effort & Inspection: normal respiratory effort and no respiratory distress Auscultation: clear to auscultation bilaterally, no crackles, no rhonchi and no wheezes Cardio Rate: regular rate Heart sounds: S1 normal heart sound present and S2 normal heart sound present GI Inspection: Yes normal to inspection Palpation (GI): Soft to palpation, nontender, no guarding and not rigid General: Yes no CVA tenderness Back/Spine/Pelvis Other: No midline cervical/thoracic/lumbar spinous tenderness/step-off or deformity. back pain not reproducible Back: no CVA tenderness Skin Rashes: no rashes Wounds: no wounds Neuro Other: Strength intact throughout. No saddle anesthesia. Sensation intact to light touch. Neurovascular intact distally General: patient oriented x3, gait normal, tone normal, moves all extremities, no meningeal signs, no focal motor deficits and CN's II-XI intact bilaterally Cranial nerves: Yes CN's II-XII intact bilaterally and Yes Equal, round and reactive pupils present Cognition (Neuro): normal cognition Speech: No Abnormal speech present Gait exam (Neuro): Normal gait present Motor exam (neuro): 5/5 motor strength present throughout Extrem General: Yes normal to inspection and Yes no pedal edema Course Course Course Narrative: -923-- labs reassuring. UA negative, with 15 ketones - viral testing negative XR lumbar spine 2-3V IMPRESSION: Normal lumbar radiographs. -1049-- on re-evaluation patient reports symptomatic improvement. Feels comfortable for discharge home at this time. Admits she has a PCP to follow up with. Results discussed with patient including worrisome signs and symptoms and strict return precautions, and when to return to the emergency department. They verbalized understanding and feel safe for discharge at this time. Medications Administered Discontinued Medications Generic Name Dose Route Start Last Admin Trade Name Blayne PRN Reason Stop Dose Admin Cyclobenzaprine HCl 10 mg 12/31/24 08:48 12/31/24 09:00 Cyclobenzaprine Hcl 10 Mg Tablet PO 12/31/24 08:49 10 mg ONCE ONE Administration Sodium Chloride 1,000 mls @ 999 mls/hr 12/31/24 09:00 12/31/24 10:08 Ns IV 12/31/24 10:00 Infused .Q1H1M MATTEO Infusion Ketorolac Tromethamine 15 mg 12/31/24 08:48 12/31/24 09:00 Ketorolac Tromethamine 15 Mg/Ml Vial IVPUSH 12/31/24 08:49 15 mg ONCE ONE Administration Ondansetron HCl 4 mg 12/31/24 01:47 12/31/24 01:57 Ondansetron Hcl 4 Mg/2 Ml Vial IVPUSH 12/31/24 01:48 4 mg ONCE ONE Administration Medical Decision Making Medical Decision Making [facility] Narrative: 49-year-old female with a past medical history of anemia, fibromyalgia, depression, recent influenza B on 12/24/2024, presenting to the ED complaining of abdominal pain, nausea, vomiting, diarrhea, headache, neck pain radiating to RLE, myalgias, fatigue, lightheadedness x few days. Also reports acute on chronic back pain x awhile. on exam vital signs stable, NAD, nontoxic appearing, physical exam as noted above. No midline spinous tenderness throughout. No red flag symptoms. No focal neuro deficits. Concern for viral illness vs metabolic abnormalities vs gastroenteritis vs rhabdomyolysis. Lower suspicion for ACS, PE, dissection, appendicitis/diverticulitis, cauda equina/ cord compression plan: EKG, labs, UA, lumbar x-ray, pain control, IVF, antiemetic, re-evaluate/p.o. trial Please refer to course for remaining clinical decision making, interpretation of labs/imaging results, and discussions with consultants and/or family members. Differential Diagnosis Differential Diagnoses: The differential diagnosis associated with the presentation includes As above Admission/Observation Consideration of admission/observation: Escalation of care including admission/observation considered Lab Data [facility] Lab Attestation statement: I reviewed the patient's lab results. 12/30/24 21:24 12/30/24 21:24 Labs: Lab Results 12/30/24 12/31/24 Range/Units 21:24 02:05 WBC 4.9 (4.8-10.8) X10*3/uL RBC 4.29 (4.20-5.50) X10*6/uL Hgb 13.5 (12.0-16.0) g/dl Hct 36.2 L (37.0-47.0) % MCV 84.4 (80.0-98.0) fL MCH 31.5 (27.0-33.0) pg MCHC 37.3 H (31.0-35.0) g/dl RDW 11.9 (11.0-16.0) % Plt Count 207 D (160-400) X10*3/uL MPV 10.0 (9.4-12.3) fL Immature Gran % (Auto) 0.2 (0.0-0.4) % Neut % (Auto) 50.8 (45-73) % Lymph % (Auto) 39.3 (20-40) % [place] % (Auto) 7.7 (2-11) % Eos % (Auto) 1.4 (0-4) % Baso % (Auto) 0.6 (0-2) % Lymph # (Auto) 1.9 (1.2-4.9) X10*3/uL [place] # (Auto) 0.4 (0.1-1.2) X10*3/uL Eos # (Auto) 0.1 (0.0-0.4) X10*3/uL Baso # (Auto) 0.0 (0.0-0.2) X10*3/uL Abs Immat Gran (auto) 0.01 (0.00-0.03) X10*3/uL Absolute Neuts (auto) 2.5 (2.0-8.3) x10*3/uL Absolute Nucleated RBC 0.000 (0.0-0.012) X10*3/uL Nucleated RBC % (auto) 0.0 (0.0-0.2) /100WBC Sodium 143 (135-145) mmol/L Potassium 3.7 D (3.3-5.1) mmol/L Chloride 108 (96-108) mmol/L Carbon Dioxide 23 (22-29) mmol/L Anion Gap 16 (12-20) BUN 12 (9-16) mg/dL Creatinine 0.68 (0.5-1.4) mg/dL Estim Creat Clear Calc 73.8 Estimated GFR > 60 Random Glucose 105 (60-115) mg/dL Calcium 9.5 (8.4-10.2) mg/dL Magnesium 1.9 (1.6-2.6) mg/dL Total Bilirubin 0.5 (0.0-1.0) mg/dL AST 27 (5-31) U/L ALT 19 (0-31) U/L Alkaline Phosphatase 95 (39-117) U/L Total Creatine Kinase 30 (26-140) U/L Total Protein 7.3 (6.5-8.0) g/dL Albumin 4.4 (3.5-5.0) g/dL Lipase 27 (8-78) U/L Urine Color Yellow Urine Appearance Clear Urine pH 7.5 (5.0-9.0) Ur Specific [place] 1.025 (1.005-1.025) Urine Protein Trace (Neg-Trace) mg/dL Urine Glucose (UA) Negative (Negative) mg/dL Urine Ketones 15 (Negative) mg/dL Urine Blood Negative (Negative) Urine Nitrite Negative (Negative) Ur Leukocyte Esterase Small (1+) H (Negative) Urine RBC 0-2 (0-2) /HPF Urine WBC 0-5 (0-5) /HPF Ur Squamous Epith Cells 0-2 (0-2) /HPF Urine Bacteria None Seen (None Seen) Hyaline Casts 0-2 (0-2) /LPF Influenza Type A (PCR) NEGATIVE (Negative) Influenza Type B (PCR) NEGATIVE (Negative) RSV RNA Qual (PCR) NEGATIVE (Negative) SARS-CoV-2 RNA (RT-PCR) NEGATIVE (Negative) Independent Interpretation I performed an independent interpretation of an: EKG and Plain X-Ray Radiology Impression Discussion of test interpretation with radiology: I have reviewed the radiologist's reading. External Record Review External record reviewed: Inpatient record, Office record, Outpatient record, Prior outpatient labs, Prior outpatient radiology, Primary care record and Outside ED record Tests considered The following testing was considered but not selected: As above Prescription Management I considered prescription management with: Pain Medication Chronic Conditions Patient?s care impacted by: Other Social Determinants Patient?s care significantly limited by Social Determinants of Health including: Other Social Determinant of Health Discharge Plan Discharge Clinical Impression: Abdominal pain, Myalgia, Low back pain Patient Disposition: Home, Self-Care Instructions: Abdominal Pain (ED), Musculoskeletal Pain (ED), Back Pain (ED) Additional Instructions: Your blood work and imaging studies are reassuring. You need to have close follow-up with your primary care doctor We also refer you to a learning development specialist. Call to make an appointment. If you develop persistent or worsening abdominal pain, nausea, vomiting, fevers, incontinence, retention or pain is unbearable return to the ED Flexeril is a muscle relaxer, take at night as it makes you drowsy, do not drive, drink alcohol, or operate machinery while taking it Naproxen as an anti-inflammatory / pain medication, take with food Lidoderm patches are numbing patches, apply to painful area In addition take Tylenol at home Prescriptions: New acetaminophen [Tylenol Extra Strength] 500 mg tablet 500 mg PO Q6H PRN (Reason: fever or pain) Qty: 14 0RF lidocaine [Lidoderm] 5 % adhesive patch,medicated 1 patch topical DAILY MDD remove after 12 hours PRN (Reason: pain) Qty: 30 0RF Rx Instructions: leave on most painful area for up to 12 hrs naproxen 500 mg tablet 500 mg PO BID PRN (Reason: pain) 10 Days Qty: 20 0RF cyclobenzaprine 5 mg tablet 5 mg PO Q8H PRN (Reason: pain (scale score 7-10)) 5 Days Qty: 14 0RF No Action omeprazole 20 mg capsule,delayed release(DR/EC) 20 mg PO BID 30 Days Qty: 60 3RF pyridoxine (vitamin B6) 100 mg tablet 100 mg PO DAILY 90 Days Qty: 90 1RF ferrous sulfate [Iron (ferrous sulfate)] 325 mg (65 mg iron) Tablet 325 mg PO BID Qty: 180 2RF cholecalciferol (vitamin D3) 25 mcg (1,000 unit) capsule 25 mcg PO DAILY trazodone 100 mg tablet 100 mg PO DAILY pregabalin [Lyrica] 150 mg capsule 150 mg PO DAILY mirtazapine 15 mg tablet 15 mg PO DAILY hydroxyzine HCl 25 mg/mL solution 25 mg IM Q6H PRN (Reason: Anxiety) duloxetine 60 mg capsule,delayed release(DR/EC) 60 mg PO DAILY venlafaxine 150 mg capsule,extended release 24hr 150 mg PO QAM propranolol 10 mg tablet 10 mg PO BID ibuprofen 600 mg tablet 600 mg PO Q8H PRN (Reason: Pain) cyclobenzaprine 5 mg tablet 5 mg PO Q8H PRN (Reason: muscle spasm) tranexamic acid [Lysteda] 650 mg tablet 1,300 mg PO TID 5 Days Qty: 30 11RF omeprazole 20 mg capsule,delayed release(DR/EC) 20 mg PO DAILY PRN (Reason: reflux) 30 Days Qty: 30 5RF docusate sodium [Colace] 100 mg capsule 200 mg PO BEDTIME Qty: 60 5RF bisacodyl [Dulcolax (bisacodyl)] 10 mg suppository 10 mg WA DAILY PRN (Reason: constipation) Qty: 20 0RF polyethylene glycol 3350 [Miralax] 17 gram/dose powder 17 g PO DAILY Qty: 510 6RF calcium polycarbophil [Fiber Laxative (ca polycarbo)] 625 mg tablet 1,250 mg PO DAILY 30 Days Qty: 60 3RF [place] [facility] [place] Group] - 1 week Physician,Unknown J [Primary Care Provider] - Interventions: ED Discharge Assessment Last Done: 12/31/24 11:14 Discharge Date/Time: 12/31/24 11:16 Print Language: Albanian
--- NOTE | 2024-12-31 09:23 | ECG_ITS ---
Test Reason : lightheaded Blood Pressure : */* mmHG Vent. Rate : 58 BPM Atrial Rate : 58 BPM P-R Int : 184 ms QRS Dur : 78 ms QT Int : 454 ms P-R-T Axes : 63 35 22 degrees QTcB Int : 445 ms Sinus bradycardia Low voltage QRS Septal infarct (cited on or before 27-Sep-2015) Abnormal ECG When compared with ECG of 11-Feb-2023 17:06, No significant change was found Referred By: Shawnee Fuchs Electronically Signed By: Barney Patten
[2024-12-31 09:27] LABS: Lipase 27 U/L (8-78); Magnesium 1.9 mg/dL (1.6-2.6)
[2024-12-31 09:48] VITALS: BP 106/60; PULSE 57; RESP 16; TEMP 36.5; O2SAT 100
[2024-12-31 11:13] VITALS: BP 115/65; PULSE 78; RESP 18; TEMP 36.9; O2SAT 95
[2024-12-31 11:14] VITALS: BP 115/65; PULSE 78; RESP 18; TEMP 36.9; O2SAT 95
== END 2024-12-31 11:16 | disposition home or self-care (01) ==
PROVIDERS: Physician Assistant; Emergency Provider Emergency Medicine Emergency Medical Services
DX: R10.2 Pelvic and perineal pain (principal); M79.10 Myalgia, unspecified site; M54.50 Low back pain, unspecified; R00.1 Bradycardia, unspecified; R11.2 Nausea with vomiting, unspecified; R50.9 Fever, unspecified; M79.601 Pain in right arm; R51.9 Headache, unspecified; M79.604 Pain in right leg; M54.2 Cervicalgia; Z79.899 Other long term (current) drug therapy; Z03.818 Encounter for observation for suspected exposure to other biological agents ruled out
CPT/HCPCS: 0241U; 36415; 72100; 80053; 81001; 82550; 83690; 83735; 85025; 87086; 93005; 96361; 96374; 96375; 99284; 99285; J1885; J2405

== ENCOUNTER → 2024-12-31 08:48 | Outpatient (BNV) | payer MEDICAID, SELFPAY | PROVIDERS: Emergency Provider Emergency Medicine Emergency Medical Services; Visit Provider Radiology Diagnostic Radiology | DX: M54.50 Low back pain, unspecified (principal) | CPT/HCPCS: 72100 ==

== ENCOUNTER → 2024-12-31 09:23 | Outpatient (BNV) | payer MEDICAID, SELFPAY | PROVIDERS: Emergency Provider Emergency Medicine Emergency Medical Services; Visit Provider Internal Medicine Cardiovascular Disease | DX: I25.2 Old myocardial infarction (principal); R00.1 Bradycardia, unspecified | CPT/HCPCS: 93010 ==

== ENCOUNTER 2025-01-26 11:34 | Outpatient (REF) | payer MEDICAID, SELFPAY ==
--- OUTSIDE RECORDS SUMMARY | 2025-01-26 13:01 | XMS_ITS | Encounter Summary ---
Author Organization [employer] Address [address] [place] [address] Care Team Providers Care Electric Meter Reader Name Role Phone Mali Trinidad MD Primary Care Provider [phone] Reason for Visit * Reason Onset Date Comments Nurse Triage 01/17/2025 Encounter Details Date Type Department Care Team ([facility] st Contact Info) Description 01/17/2025 Telephone [facility] [address] [place] [address] Mali Trinidad MD [address] [place], [place] [id number] Nurse Triage Social History Tobacco Use Types Packs/Day Years [...] AM EDT documented as of this encounter Miscellaneous Notes * Telephone Encounter - Lora Coles RN - 01/17/2025 12:39 PM EDT Requesting ED report, seen [facility] 12/31/24 Thank you. Triage call Pt was seen in [facility] ED 12/31/14 for bone pain. Locomotive Electrician will request report for Chart. Pt reports continues to have bone pain, neck, elbows , back and was prescribed ibuprofen and muscle relaxer which have been helping some. Pt would like to see provider for follow up pain control. ASK apt with Dr. Garcia 01/20/25 @ 1045am. Insurance is verified as active prior to booking. Protocol Used: Muscle Aches and Body Pain (Adult) Protocol-Based Disposition: See in Office or Video Visit within 2 Weeks Video visit not offered Positive Triage Question: * Muscle aches or body pains are a chronic symptom (recurrent or ongoing AND present > 4 weeks) * All higher-acuity triage questions were negative Care Advice Discussed: * Reassurance and Education - Mild Muscle Pain * Pain Medicines * Pain Medicines - Extra Notes and Warnings * Reasons To Call Back - Fever occurs - Pain lasts longer than 7 days - You become worse * Telephone Encounter - Jose Cooley - 01/17/2025 11:49 AM EDT Patient calling to report ED visit on : Date: 12/31/24 Hospital: [facility] ED Seen for: bone pain ( elbow , neck, back ) Symptomatic Yes *if yes message should go to Triage Reports still having a lot of pain , tearing up at the middle of the night due to pain. [place]araguan speaking documented in this encounter Plan of Treatment Upcoming Encounters Date Type Department Care Team (Late st Contact Info) Description 03/17/2025 9:00 AM EDT Office Visit [facility] [address] [place] [address] Mali Trinidad MD [address] [place] [address] documented as of this encounter Visit Diagnoses Not on filedocumented in this encounter Additional Health Concerns Assessment Noted Time PHQ-9 Depression Total Score: 23 023 3:56 PM EDT documented as of this encounter Care Teams Electric Meter Reader Relationship Specialty Start Date End Date Mali Trinidad MD [address] [place] [address] PCP - General Family Medicine 09/22/18 Arminda Dias Bdc ManagerPersonal Lines Underwriter 08/21/23 documented as of this encounter
--- OUTSIDE RECORDS SUMMARY | 2025-01-26 13:01 | XMS_ITS | Encounter Summary ---
Author Organization [employer] Address [address] [facility] [facility] [address] [place] [address] Care Team Providers Care Otr Owner Operator Name Role Phone Mali Trinidad MD Primary Care Provider [phone] Encounter Details Date Type Department Care Team (Latest Contact Info) Description 01/26/2025 Travel Social History Tobacco Use Types Packs/Day Years [...] EDT Gender Identity Choose not to disclose 10/31/202 2 10:18 AM EDT Sexual Orientation Choose not to disclose 2021 10:18 AM EDT documented as of this encounter Plan of Treatment Upcoming Encounters Date Type Department Care Team (Late st Contact Info) Description 03/17/2025 9:00 AM EDT Office Visit [facility] [address] [place] [address] Mali Trinidad MD [address] [place] [address] documented as of this encounter Visit Diagnoses Not on filedocumented in this encounter Additional Health Concerns Assessment Noted Time PHQ-9 Depression Total Score: 23 023 3:56 PM EDT documented as of this encounter Care Teams Otr Owner Operator Relationship Specialty Start Date End Date Mali Trinidad MD [address] [place] [address] PCP - General Family Medicine 09/22/18 Arminda Dias Network Control SupervisorAirplane Captain 08/21/23 documented as of this encounter
--- OUTSIDE RECORDS SUMMARY | 2025-01-26 13:01 | XMS_ITS | Clinical Summary ---
Author Organization [employer] Address [address] [facility] 7t [place] [address] Care Team Providers Care Healthcare Science Specialist Name Role Phone Mali Trinidad MD Primary Care Provider [phone] Allergies No known active allergies Medications DULoxetine (Cymbalta) [address] capsule TAKE 1 CAPSULE BY MOUTH TWICE A DAY 60 capsule 3 12/13/19 23 Active mirtazapine (Remeron) 15 MG tablet TAKE 1 TABLET BY MOUTH EVERY DAY BEFORE BEDTIME 30 tablet 3 12/13/19 23 Active omeprazole (PriLOSEC) [address] capsule TAKE 1 CAPSULE BY MOUTH EVERY 12 HOURS BEFORE A MEAL 180 capsule 1 12/13/19 23 Active cholecalcifero l (Vitamin D-3) 50 MCG (1999 UT) capsule Take by mouth 2 times daily. 08/04/20 22 Active Diclofenac Sodium 1 % gel Apply topically 2 times daily. to affected area 04/05/20 22 Active dicyclomine (Bentyl) 20 MG tablet TAKE 1 TABLET BY ORAL ROUTE 3 TIMES EVERY DAY PRIOR MEALS 06/17/20 22 Active ferrous sulfate 325 (65 Fe) MG tablet Take 1 tablet by mouth 2 times daily. 08/27/20 22 Active propranolol (Inderal) 10 MG tablet TAKE 1 TABLET BY MOUTH EVERY DAY NEEDED FOR ANXIETY, MAY REPEAT ONE TIME 04/19/20 22 Active pyridoxine (Vitamin B-6) 100 MG tablet Take 100 mg by mouth in the morning. 08/16/20 22 Active SUMAtriptan (Imitrex) 50 MG tablet TAKE 1 TABLET BY MOUTH EVERY DAY NEEDED AT LEAST 2 HOURS BETWEEN DOSES 08/20/20 22 Active topiramate (Topamax) 50 MG tablet take 1 tablet by oral before bedtime 06/20/20 22 Active hydrOXYzine pamoate (Vistaril) 50 MG capsule TAKE 1 CAPSULE BY MOUTH 3 TIMES EVERY DAY NEEDED FOR ANXIETY 90 capsule 3 02/19/20 23 Active traZODone (Desyrel) 100 MG tablet TAKE 1 TABLET BY MOUTH EVERY DAY ONE DOSE 30 tablet 3 02/19/20 23 Active DULoxetine (Cymbalta) [address] capsule Take 30 mg by mouth in the morning. 01/22/20 23 Active cyclobenzaprin e (Flexeril) 5 MG tablet Take 1 tablet (5 mg) by mouth if needed in the morning, at noon, and at bedtime for muscle spasms. 30 tablet 01/27/20 25 Active cyclobenzaprin e (Flexeril) 5 MG tablet TAKE 1 TABLET BY ORAL ROUTE EVERY 8 HOURS NEEDED FOR MUSCLE SPASM NEEDED 08/02/20 22 025 Discontinued(Re order (will not trigger notification to Pharmacy)) Active Problems Problem Noted Date Diagnosed Date Erosive gastritis 06/15/2020 Severe recurrent major depre ssion without psychotic features 11/19/2018 Fibromyalgia 06/11/2018 Anemia 05/22/2018 Fatigue 02/19/2018 Lymphocytopenia 02/19/2018 Heartburn 05/26/2013 Irritable bowel syndrome with diarrhea 2 Encounters Date Type Department Care Team Description 01/26/2025 11:00 AM EDT Office Visit [facility] [address] [place] [address] Mali Trinidad MD Lymphocytopenia (Primary Dx); Burning with urination; Fibromyalgia 01/26/2025 Travel 01/20/2025 Telephone [facility] [address] [place] [address] Mali Trinidad MD No Show 01/20/2025 Travel 01/17/2025 Telephone [facility] [address] [place] [phone] Mali Trinidad MD Nurse Triage 01/06/2025 Telephone [facility] [address] [place] [address] [phone] Mali Trinidad MD 12/24/2024 Orders Only External Provider, [facility] 12/03/2024 Population Health Risk Score [facility] Department [address] [place] [address] Provider, Population Health Generic 11/12/2024 Telephone [facility] [address] [place] [address] Mali Trinidad MD Nurse Triage [...] Sign Reading Time Taken Comments Blood Pressure 112/68 01/26/2025 11:14 AM EDT Pulse 84 01/26/2025 11:14 AM EDT Temperature 36.6 ??C (97.9 ??F) 01/26/2025 11:14 AM E DT Respiratory Rate 20 01/26/2025 11:14 AM EDT Oxygen Saturation 98% 07/10/2023 3:44 PM EDT Inhaled Oxygen Concentration - - Weight 52 kg (114 lb 9.6 oz) 01/26/2025 11:14 AM EDT Height 157.5 cm (5' 2 ) 01/26/2025 11:14 AM EDT Body Mass Index 20.96 01/26/2025 11:14 AM EDT Plan of Treatment Upcoming Encounters Date Type Department Care Team ([facility] st Contact Info) Description 03/17/2025 9:00 AM EDT Office Visit [facility] [address] [place] [address] Mali Trinidad MD [address] [place] [address] Health Maintenance Due Date Last Done Comments [...] 2023 Zoster Vaccines (1 of 2) 2023 Tobacco Screening 12/14/2023 12/13/2022 Depression Screening 01/17/2024 01/16/2023, 01/17/20 23 COVID-19 Vaccine (1 - season) 2024 Influenza Vaccine (#1) 2024 [...] Procedure Name Priority Date/Time Associated Diagnosis Comments POCT URINALYSIS DIPSTICK Routine 01/26/2025 11:21 AM EDT Burning with urination PATHOLOGIST REVIEW - CBC Routine 12/24/2024 2:03 [...] FECAL, IMMUNOASSAY Routine 05/24/2020 11:39 AM EDT PAP/HPV Routine 03/27/2020 COLONOSCOPY Routine 09/23/2019 from Last 3 Months or Most Recently Relevant to Health Maintenance Results * POCT Urinalysis (01/26/2025 11:21 AM EDT) Pathologist [facility] Color, UA Yellow Clarity, UA Clear Glucose, UA Negative Bilirubin, UA Negative Ketones, UA Negative Spec Grav, UA 1.030 Blood, UA Negative Negative, None Detected pH, UA 6.0 Protein, UA Negative Urobilinogen, UA 0.2 Leukocytes, UA Negative Negative, Rare, Trace Nitrite, UA Negative Negative, None Detected Appearance, UA clear QC Media Lot # [id number] Lot# Expiration Date Urine 01/26/2025 11:2 1 AM EDT us Mali Trinidad MD POINT OF CARE TEST ENTER/EDIT ORDERABLES Final Result * Pathologist Review - CBC (12/24/2024 2:03 PM EDT) [facility] Pathologist Review - CBC SEE NOTE LABS Comment:Leukopenia, compatib le with the patient?s current viral(influenza) infection. Follow-up CBC after resolution ofacute process recommended.Amalia English MD 12/24/2024 2:03 PM EDT 12/24/2024 2:05 PM EDT Narrative LABS - 12/27/2024 5:45 PM EDT SPECIMEN CLOTTED us Generic External Data Provider LAB BLOOD ORDERAB LES Final Result LABS [address] [place] [phone] * (ABNORMAL) CBC auto differential (12/24/2024 2:03 PM EDT) White Blood Count 2.4(L) 4.8 - 10.8 X10*3/uL LABS Red Blood Count 4.65 4.20 - 5.50 X10*6/uL LABS Hemoglobin 14.2 12.0 - 16.0 g/dl LABS Hematocrit 40.2 37.0 - 47.0 % LABS Mean Corpuscular Volume 86.5 80.0 - 98.0 fL LABS Mean Corpuscular Hemoglobin 30.5 27.0 - 33.0 pg LABS Mean Corpuscular HGB Conc 35.3(H) 31.0 - 35.0 g/dl LABS Red Cell Distribution Width 12.4 11.0 - 16.0 % LABS Platelet Count 135(L) 160 - 400 X10*3/uL LABS Mean Platelet Volume 10.5 9.4 - 12.3 fL LABS Neutrophils Percent Auto 48.2 45 - 73 % LABS Imm Gran Pct Auto 0.0 0.0 - 0.4 % LABS Lymphocytes Percent Auto 37.0 20 - 40 % LABS Monocytes Percent Auto 14.0(H) 2 - 11 % LABS Eosinophils Percent Auto 0.4 0 - 4 % LABS Basophils Percent Auto 0.4 0 - 2 % LABS NRBC Pct Auto 0.0 0.0 - 0.2 /100WBC LABS Neutrophils Absolute Auto 1.1(L) 2.0 - 8.3 x10*3/uL LABS Imm Gran Abs Auto 0.00 0.00 - 0.03 X10*3/uL LABS Lymphocytes Absolute Auto 0.9(L) 1.2 - 4.9 X10*3/uL LABS Monocytes Absolute Auto 0.3 0.1 - 1.2 X10*3/uL LABS Eosinophils Absolute Auto 0.0 0.0 - 0.4 X10*3/uL LABS Basophils Absolute Auto 0.0 0.0 - 0.2 X10*3/uL LABS NRBC Abs Auto 0.000 0.0 - 0.012 X10*3/uL LABS 12/24/2024 2:03 PM EDT 12/24/2024 2:05 PM EDT Narrative LABS - 12/27/2024 5:45 PM EDT SPECIMEN CLOTTED Generic External Data Provider LAB BLOOD ORDERAB LES Edited Result - Final Performing Organization Address [facility]/ZIP Co de Phone Number LABS [address] [place] [phone] * (ABNORMAL) SARS-CoV-2 RNA, Influenza A/B, and RSV RNA, Ql NAAT (12/24/2024 12:49 PM EDT) Influenza A PCR NEGATIVE Negative [facility] Influenza B PCR POSITIVE(A) Negative [facility] Resp Syncy Virus RNA Qual PCR NEGATIVE Negative LABS SARS COV2 PCR NEGATIVE Negative [facility] Comment:All test results mus t [...] use by authorized laboratories.Testing performed on the [facility] GeneXpert utilizingreal-time RT-PCR.All SARS CoV2 and positive influenza A/B results arereported to [facility]. 12/24/2024 12:4 9 PM EDT 12/24/2024 12:51 PM EDT Generic External Data Provider LAB MICROBIOLOGY - GENERAL ORDERABLES Final Result Performing Organization Address [facility]/ZIP Co de Phone Number LABS [address] [place] [phone] * Magnesium (12/24/2024 12:49 PM EDT) Magnesium 2.0 1.6 - 2.6 mg/dL LABS 12/24/2024 12:4 9 PM EDT 12/24/2024 12:51 PM EDT us Generic External Data Provider LAB BLOOD ORDERAB LES Final Result LABS [address] [place] [phone] * (ABNORMAL) Comprehensive Metabolic Panel (12/24/2024 12:49 PM EDT) Sodium 139 135 - 145 mmol/L LABS Potassium 4.8 3.3 - 5.1 mmol/L LABS Comment:Slight Hemolysis.Int erpret result with caution. Chloride 106 96 - 108 mmol/L LABS Carbon Dioxide 23 22 - 29 mmol/L LABS Anion Gap 15 12 - 20 LABS Urea Nitrogen (BUN) 16 9 - 16 mg/dL LABS Creatinine, Serum 0.84 0.5 - 1.4 mg/dL LABS Creatinine Clr Calc Pharmacy 62.6 LABS Comment:Provided height and weight: 157.48 cm,54.431 kg.eGFR (calculated from the MDRD study equation) and eCrCl(calculated from the Cockcroft-Gault equation) are based ondifferent parameters and may not yield comparable results.If eCrCl result is absurd, please check patient'sheight/weight. Estimated Glomerular Filt Rate >60 LABS Comment:Chronic Kidney Disea se: Estimated GFR < 60 mL/min/1.74e9Pobifv Kidney Disease: Estimated GFR < 15 mL/min/1.73m2 Glucose 90 60 - 115 mg/dL LABS Calcium 9.7 8.4 - 10.2 mg/dL LABS Bilirubin, Total 0.3 0.0 - 1.0 mg/dL LABS Aspartate Amino Transferase 30 5 - 31 U/L LABS Comment:Slight Hemolysis.Int erpret result with caution. Alanine Aminotransferase 15 0 - 31 U/L LABS Total Protein 8.2(H) 6.5 - 8.0 g/dL LABS Albumin Level 4.7 3.5 - 5.0 g/dL LABS Alkaline Phosphatase 106 39 - 117 U/L LABS 12/24/2024 12:4 9 PM EDT 12/24/2024 12:51 PM EDT Generic External Data Provider LAB BLOOD ORDERAB LES Final Result Performing Organization Address [facility] Co de Phone Number LABS [address] [place] [phone] * Strep A Nucleic Acid (12/24/2024 12:48 PM EDT) IDNOW SERIAL# [id number] [facility]S Strep A Nucleic Acid Negative Negative LABS Comment:All test results mus t be [...] GENERAL ORDERABLES Final Result Performing Organization Address [facility] Co de Phone Number LABS [address] [place] [phone] * XR Chest 2 Views (12/24/2024 12:19 PM EDT) Anatomical Region Laterality Modality Chest Radiographic Henna ging 12/24/2024 12:1 9 PM EDT Narrative 12/24/2024 12:50 PM EDT ? [facility] ?[address] ?[place] [address] ?XRay Report ? Signed ? Patient: Kim,Wen M ?MR#: [id number] ?? [id number] ? : 1975 ?Acct:[id number] ? Age/Sex: 49 / F ?ADM Date: 12/24/24 ? Loc: HO.ED ? Attending Dr: ? Ordering Physician: Yelitza Espinoza ?? Date of Service: 12/24/24 ?? Procedure(s): XR chest 2V ?? Accession Number(s): [id number] ? cc: Mali Trinidad MD; Yelitza Espinoza [...] Torres MD ??12/24/2024 12:47 PM ?? EDT ? Dictated By: ?Raj Meza MD ? Signed By: ?<Electronically signed by Raj Hutchins MD in OV> ? 12/24/24 1247 ? DD/ 1219 ? TD/TT: 12/24/24 1230 ? Mathematical Physicist: ? Procedure Note Alvarado Krishnan - 12/24/[address] [address] XRay Report Signed Patient: Wen Kim [facility]#: [id number] : 1975Acct:[id number] Age/Sex: 49 / FADM Date: 12/24/24 Loc: HO.ED Attending Dr: Ordering Physician: Yelitza Espinoza Date of Service: 12/24/24 Procedure(s): XR chest 2V Accession Number(s): [id number] cc: Mali Trinidad MD; Yelitza Espinoza EXAMINATION: [...] 12/24/24 1247 DD/ 1219 TD/TT: 12/24/24 1230 Mathematical Physicist: [facility] External Provider IMG XR PROCEDURES Final Result * BI Mammogram Screening Tomosynthesis Bilateral (02/20/2023 1:57 PM EDT) Anatomical Region Laterality Modality Breast Bilateral Mammography 02/20/2023 1:57 PM EDT Narrative 02/22/2023 12:22 PM EDT ? [facility] ? [address] ?[place] [address] ? Mammography Report ? Signed ? Patient: Kim,Wen ?MR#: [id number] ?? [id number] ? : 1975 ?Acct:[id number] ? Age/Sex: 47 / F ?ADM Date: 06//23 ? Loc: HO.MAMMO ? Attending Jeromy Trinidad MD ? Ordering Physician: Jose Smith MD ?Results: 2Benign ?? Findings ? Date of Service: 02/20/23 ?Follow Up: 1 Year From Orig ?? inal Mammogram ? Procedure(s): MM tomosynthesis screening BI ?? Accession Number(s): [id number] ? cc: Jose Smith MD ? EXAMINATION: [...] ?02/22/23 1219 ? DD/ ? TD/TT: ? Mathematical Physicist: MANE ? Procedure Note Donotjesseinterpreter, Image - 03/20/2023 [facility] [address] [place] [address] Mammography Report Signed Patient: Phyllis Kim#: [id number] : 1975Acct:[id number] Age/Sex: 47 / FADM Date: 02/20/23 Loc: HO.MAMMO Attending Dr: Mali Trinidad MD Ordering Physician: Jose Smith MDResults: 2Benign Findings Date of Service: 02/20/23Follow Up: 1 Year From Orig inal Mammogram Procedure(s): MM tomosynthesis screening BI Accession Number(s): [id number] cc: Jose Smith MD EXAMINATION: MM SCREENING [...] in OV> 02/22/23 1219 DD/ 1357 TD/TT: Mathematical Physicist: ALHAJI [facility] External Provider IMG BI PROCEDURES Edited Result - Final * OCCULT BLOOD STOOL (05/24/2020 11:39 AM EDT) OCCULT BLOOD STOOL [facility] 05/24/2020 11:3 9 AM EDT Historical Provider LAB BODY FLUIDS AND STOOL S ORDERABLES Final Result [facility] [address] * Pap Smear (03/27/2020) Pap Negative [...] Most Recently Relevant to Health Maintenance [facility] Care Teams Healthcare Science Specialist Relationship Specialty Start Date End Date Mali Trinidad MD [address] [place] [phone] PCP - General Family Medicine 09/22/18 Arminda Dias Lead Shop OperatorSurgery Consultant 08/21/23
--- OUTSIDE RECORDS SUMMARY | 2025-01-26 13:01 | XMS_ITS | Encounter Summary ---
Author Organization [employer] Address [address] [facility] [address] [place] [address] Care Team Providers Care Lining Parts Sewer Name Role Phone Mali Trinidad MD Primary Care Provider [phone] Encounter Details Date Type Department Care Team (Late st Contact Info) Description 07/28/2023 Abstract [facility] [address] [place] [address] Funmilayo Davies Social History Tobacco Use Types [...] Upcoming Encounters Date Type Department Care Team ([facility] st Contact Info) Description 03/17/2025 9:00 AM EDT Office Visit [facility] [address] [place] [address] Mali Trinidad MD [address] [place] [address] documented as of this encounter Procedures Procedure [...] documented as of this encounter Care Teams Lining Parts Sewer Relationship Specialty Start Date End Date Mali Trinidad MD [address] [place] [address] PCP - General Family Medicine 09/22/18 Arminda Dias Enrolled AgentLiner Helper 08/21/23 documented as of this encounter
--- OUTSIDE RECORDS SUMMARY | 2025-01-26 13:01 | XMS_ITS | Encounter Summary ---
Author Organization [employer] Address [address] [facility] [address] [place] [address] Care Team Providers Care Molder Pipe Covering Name Role Phone Mali Trinidad MD Primary Care Provider [phone] Encounter Details Date Type Department Care Team ([facility] Contact Info) Description 12/12/2022 Orders Only [facility] [address] [place], [place] [phone] Janeth Womack LPN Social History Tobacco Use [...] Encounters Date Type Department Care Team (Late Contact Info) Description 03/17/2025 9:00 AM EDT Office Visit [facility] [address] [place] [address] Mali Trinidad MD [address] [place] [address] documented as of this encounter Visit Diagnoses Not on filedocumented in this encounter Care Teams Molder Pipe Covering Relationship Specialty Start Date End Date Mali Trinidad MD [address] [place] [phone] PCP - General Family Medicine 09/22/18 Arminda Dias Advanced Practice ProfessionalDelivery Crew Member 08/21/23 documented as of this encounter
--- OUTSIDE RECORDS SUMMARY | 2025-01-26 13:01 | XMS_ITS | Encounter Summary ---
Author Organization [employer] Address [address] [facility] [address]t [place] [address] Care Team Providers Care Open Hearth Melter Name Role Phone Mali Trinidad MD Primary Care Provider [phone] Encounter Details Date Type Department Care Team (Latest Contact Info) Description 01/26/2025 11:00 AM EDT Office Visit [facility] PEDS [address] [place], [place] [phone] Mali Trinidad MD [address] [place] [address] Lymphocytopenia (Primary Dx); Burning with urination; Fibromyalgia Social History Tobacco Use Types Packs/Day Years [...] AM EDT documented as of this encounter Last Filed Vital Signs Vital Sign Reading Time Taken Comments Blood Pressure 112/68 01/26/2025 11:14 AM EDT Pulse 84 01/26/2025 11:14 AM EDT Temperature 36.6 ??C (97.9 ??F) 01/26/2025 11:14 AM E DT Respiratory Rate 20 01/26/2025 11:14 AM EDT Oxygen Saturation - - Inhaled Oxygen Concentration - - Weight 52 kg (114 lb 9.6 oz) 01/26/2025 11:14 AM EDT Height 157.5 cm (5' 2 ) 01/26/2025 11:14 AM EDT Body Mass Index 20.96 01/26/2025 11:14 AM EDT documented in this encounter Plan of Treatment Upcoming Encounters Date Type Department Care Team (Late st Contact Info) Description 03/17/2025 9:00 AM EDT Office Visit [facility]EDS [address] [place] [address] Mali Trinidad MD [address] [place] [address] Scheduled Orders Name Type Priority Associated Diagnoses Orde r Schedule Basic Metabolic Panel Lab Routine Burning with urination Lymphocytopenia Fibromyalgia Expected: 01/26/2025 (Approximate), Expires: 01/26/2026 CBC auto differential Lab Routine Burning with urination Lymphocytopenia Fibromyalgia Expected: 01/26/2025 (Approximate), Expires: 01/26/2026 C-reactive Protein Lab Routine Burning with urination Lymphocytopenia Fibromyalgia Expected: 01/26/2025 (Approximate), Expires: 01/26/2026 TSH W/Reflex to FT4 Lab Routine Burning with urination Lymphocytopenia Fibromyalgia Expected: 01/26/2025 (Approximate), Expires: 01/26/2026 Estradiol Lab Routine Burning with urination Lymphocytopenia Fibromyalgia Expected: 01/26/2025, Expires: 01/26/2026 Hepatic Function Panel Lab Routine Burning with urination Lymphocytopenia Fibromyalgia Expected: 01/26/2025 (Approximate), Expires: 01/26/2026 Vitamin B12/Folate, Serum Panel Lab Routine Burning with urination Lymphocytopenia Fibromyalgia Expected: 01/26/2025, Expires: 01/26/2026 Vitamin D, 25-Hydroxy, Total, Immunoassay Lab Routine Burning with urination Lymphocytopenia Fibromyalgia Expected: 01/26/2025 (Approximate), Expires: 01/26/2026 Sed Rate by Modified [place] Lab Routine Burning with urination Lymphocytopenia Fibromyalgia Expected: 01/26/2025, Expires: 01/26/2026 Magnesium Lab Routine Fibromyalgia Expected: 01/26/2025, Expires: 01/26/2026 documented as of this encounter Procedures Procedure Name Priority Date/Time Associated Diagnosis Comments POCT URINALYSIS DIPSTICK Routine 01/26/2025 11:21 AM EDT Burning with urination documented in this encounter Results * POCT Urinalysis (01/26/2025 11:21 AM EDT) Color, UA Yellow Clarity, UA Clear Glucose, [...] OF CARE TEST ENTER/EDIT ORDERABLES Final Result documented in this encounter Visit Diagnoses Diagnosis Lymphocytopenia- Primary Burning with urination Dysuria Fibromyalgia Unspecified myalgia and myositis documented in this encounter Additional Health Concerns Assessment Noted Time PHQ-9 Depression Total Score: 23 04//2 023 3:56 PM EDT documented as of this encounter Care Teams Open Hearth Melter Relationship Specialty Start Date End Date Mali Trinidad MD [address] [place] [phone] PCP - General Family Medicine 09/22/18 Arminda Dias Fishing Gear MechanicLevelman 08/21/23 documented as of this encounter
[2025-01-26 14:14] LABS: MANUAL DIFF FLAG NO
[2025-01-26 14:21] LABS: Basophils Absolute Auto 0.1 X10*3/uL (0.0-0.2); Basophils Percent Auto 1.6 % (0-2); Eosinophils Absolute Auto 0.1 X10*3/uL (0.0-0.4); Eosinophils Percent Auto 2.4 % (0-4); Hematocrit 36.8 % (37.0-47.0); Hemoglobin 12.7 g/dl (12.0-16.0); Imm Gran Abs Auto 0.01 X10*3/uL (0.00-0.03); Imm Gran Pct Auto 0.3 % (0.0-0.4); Lymphocytes Absolute Auto 1.7 X10*3/uL (1.2-4.9); Lymphocytes Percent Auto 45.9 % (20-40); Mean Corpuscular HGB Conc 34.5 g/dl (31.0-35.0); Mean Corpuscular Hemoglobin 31.1 pg (27.0-33.0); Mean Platelet Volume 10.9 fL (9.4-12.3); Monocytes Absolute Auto 0.4 X10*3/uL (0.1-1.2); Monocytes Percent Auto 9.8 % (2-11); Neutrophils Absolute Auto 1.5 x10*3/uL (2.0-8.3); Platelet Count 194 X10*3/uL (160-400); Red Blood Count 4.09 X10*6/uL (4.20-5.50); Red Cell Distribution Width 13.1 % (11.0-16.0); White Blood Count 3.8 X10*3/uL (4.8-10.8)
[2025-01-26 14:42] LABS: Alanine Aminotransferase 13 U/L (0-31); Albumin Level 4.5 g/dL (3.5-5.0); Alkaline Phosphatase 95 U/L (39-117); Anion Gap 10 (12-20); Aspartate Amino Transferase 22 U/L (5-31); Bilirubin Direct 0.2 mg/dL (0.0-0.5); Bilirubin Total 0.4 mg/dL (0.0-1.0); Blood Urea Nitrogen 12 mg/dL (9-16); C Reactive Protein < 0.04 mg/dL (< or = 0.50); Calcium 10.1 mg/dL (8.4-10.2); Carbon Dioxide 28 mmol/L (22-29); Chloride 107 mmol/L (96-108); Estimated Glomerular Filt Rate > 60; Glucose Random 72 mg/dL (60-115); Magnesium 2.3 mg/dL (1.6-2.6); Potassium 3.9 mmol/L (3.3-5.1); Sodium 141 mmol/L (135-145); Total Protein 7.4 g/dL (6.5-8.0)
[2025-01-26 14:48] LABS: TSH reflex Free T4 1.25 uIU/mL (0.32-4.0); Vitamin D 25-OH Total 135.3 ng/mL (>30)
[2025-01-26 15:01] LABS: Folate 13.2 ng/mL (> or = 4.0); Vitamin B12 304 pg/mL (200-900)
[2025-01-26 15:32] LABS: Erythrocyte Sedimentation Rate 16 MM/HR (0-20)
[2025-02-10 06:24] LABS: Estradiol Ultra Sensitive <2 pg/mL
== END 2025-01-26 11:35 | disposition home or self-care (01) ==
LOC: HO.CHCLDS 11:34
PROVIDERS: Visit Provider Pediatrics
DX: D72.810 Lymphocytopenia (principal); R30.0 Dysuria; M79.7 Fibromyalgia
CPT/HCPCS: 36415; 80048; 80076; 82306; 82607; 82670; 82746; 83735; 84443; 85025; 85652; 86140

== ENCOUNTER 2025-06-08 09:50 | Outpatient (REF) | payer MEDICAID, SELFPAY ==
--- OUTSIDE RECORDS SUMMARY | 2025-06-08 09:45 | XMS_ITS | Encounter Summary ---
Author Organization [employer] Address [address] [place] [address] 7 [place] [address] Care Team Providers Care Otr Flatbed Driver Name Role Phone Mali Trinidad MD Primary Care Provider [phone] Reason for Referral * Imaging (Routine) - Authorized Specialty Diagnoses / Procedures Referred By Contac t Referred To Contact Radiology Diagnoses Encounter for gynecological examination with Papanicolaou smear of cervix Procedures BI Mammogram Screening Tomosynthesis Bilateral Mali Trinidad MD [address] [place] [address] Phone: tel: fax: [address] Phone: tel: fax: Referral ID Status Reason Start Date Expiration Date V isits Requested Visits Authorized [id number] Authorized 06/08/2025 06/08/2026 1 1 Encounter Details Date Type Department Care Team (Latest Contact Info) Description 06/08/2025 9:45 AM EDT Procedure Visit [facility] CHC MED & PEDS [address] [place], [place] [phone] Mali Trinidad MD [address] [place] [address] Encounter for gynecological examination with Papanicolaou smear of cervix (Primary Dx); Encounter for immunization Social History Tobacco Use Types Packs/Day Years Used Date Smoking Tobacco: Never Smokeless Tobacco: Never Depression Answer Date Recorded Patient Health Questionnaire-9 Score 11 03/17/2025 Patient Health Questionnaire-9 Score 11 03/17/2025 Last PHQ-9: Questionnaire Data Not on file 0 03/17/2025 Housing Stability Answer Date Recorded What is your housing situation today? I have harvey daly 03/17/[address] you li ve. Do you have problems with any of the following? None of the above 03/17/2025 Food Insecurity Answer Date Recorded Within the past 12 months, y ou worried that your food would run out before you got money to buy more: Never True 03/17/2025 Within the past 12 months,th e food you bought just didn't last and you didn't have enough money to get more: Never True Transportation Answer Date Recorded In the past 12 months, has l ack of transportation kept you from medical appts, meetings, work or from getting things needed for daily living? No 03/17/2025 Utilities Answer Date Recorded In the past 12 months, has t he electric, gas, oil or water company threatened to shut off services in your home? No 03/17/2025 Depression Answer Date Recorded Patient Health Questionnaire-2 Score 4 03/17/2025 Internet Access Answer Date Recorded Internet Access Q1 Yes 03/17/2025 Internet Access Q2 Not on file 03/17/2025 Comments Unknown Sex and Gender Information Value Date Recorded Sex Assigned at Female 07/22/2022 10:18 AM EDT Legal Sex Female 10:18 AM EDT Gender Identity Choose not to disclose 10:18 AM EDT Sexual Orientation Choose not to disclose 2021 10:18 AM EDT documented as of this encounter Last Filed Vital Signs Vital Sign Reading Time Taken Comments Blood Pressure 98/70 06/08/2025 9:35 AM EDT Pulse 78 06/08/2025 9:35 AM EDT Temperature 37.1 C (98.7 F) 06/08/2025 9:35 AM EDT Respiratory Rate 20 06/08/2025 9:35 AM EDT Oxygen Saturation 99% 06/08/2025 9:35 AM EDT Inhaled Oxygen Concentration - - Weight 54.3 kg (119 lb 12.8 oz) 06/08/2025 9:35 AM EDT Height 158 cm (5' 2.21 ) 06/08/2025 9:35 AM EDT Body Mass Index 21.77 06/08/2025 9:35 AM EDT documented in this encounter Progress Notes * Mali Trinidad MD - 06/08/2025 9:45 AM EDT Subjective Wen Kim is a 50 y.o. No obstetric history on file. woman here for pap. LMP:1 year ago Menses frequency:absent Menses concerns:none Desires within the next year:not applicable [facility] control:N/A Breast concerns:none, needs mammogram scheduled Negative for: Masses Menopausal symptoms negative for: hot flashes, night sweats, urinary incontinence and vaginal dryness. Review of Systems Review of Systems Constitutional: Negative for activity change, chills, fever and unexpected weight change. Respiratory: Negative for cough, shortness of breath and wheezing. Cardiovascular: Negative for chest pain, palpitations and leg swelling. Gastrointestinal: Negative for abdominal pain and blood in stool. Endocrine: Negative for polydipsia and polyuria. Genitourinary: Negative for decreased urine volume, difficulty urinating, dysuria, enuresis, frequency, genital sores, hematuria and pelvic pain. Musculoskeletal: Negative for arthralgias and gait problem. Skin: Negative for color change and rash. Neurological: Negative for dizziness and headaches. Hematological: Negative for adenopathy. Psychiatric/Behavioral: Negative for dysphoric mood, hallucinations, sleep disturbance and suicidalideas. The patient is not nervous/anxious. No results found for: PAPPA No results found [facility]: [facility] Previous paps: 03/2020 Mammogram: 2022 Objective BP 98/70 Pulse 78 Temp 98.7 ??F (37.1 ??C) (Oral) Resp 20 Ht 5' 2.21 (1.58 m) Wt 119 lb 12.8 oz (54.3 kg) SpO2 99% BMI 21.77 kg/m?? Physical Exam Vitals reviewed. Exam conducted with a air defense specialist present. Constitutional: General: Wen is not in acute distress. Appearance: Normal appearance. Wen is normal weight. HENT: Head: Normocephalic. Cardiovascular: Rate and Rhythm: Normal rate and regular rhythm. Chest: Chest wall: No mass, deformity or tenderness. Breasts: Fredis Score is 5. Right: Normal. No bleeding, inverted nipple, mass, nipple discharge, skin change or tenderness. Left: Normal. No bleeding, inverted nipple, mass, nipple discharge, skin change or tenderness. Genitourinary: General: Normal vulva. Exam position: Lithotomy position. Fredis stage (genital): 5. Labia: Right: No rash, lesion or injury. Left: No rash, lesion or injury. Vagina: Normal. Cervix: No cervical motion tenderness, friability, lesion or erythema. Uterus: Normal. Not tender. Adnexa: Right: No mass, tenderness or fullness. Left: No mass, tenderness or fullness. Lymphadenopathy: Upper Body: Right upper body: No axillary adenopathy. Left upper body: No axillary adenopathy. Neurological: Mental Status: Wen is oriented to person, place, and time. Mental status is at baseline. Psychiatric: Comments: Improved mood Problem List Items Addressed This Visit None Pap with HPV testing done STI testing not needed Preventative care and harm reduction discussed Continue lowest effective dose of estradiol patch plus oral progesterone, patient expresses a lot of relief with hot flashes,insomnia etc.. Continued same dose.Mammogram scheduled . documented in this encounter Plan of Treatment Scheduled Orders Name Type Priority Associated Diagnoses Orde r Schedule Pap Smear Pathology and Cytology Routine Encounter for gynecological examination with Papanicolaou smear of cervix Ordered: 06/08/2025 BI Mammogram Screening Tomosynthesis Bilateral Imaging Routine Encounter for gynecological examination with Papanicolaou smear of cervix Expected: 06/08/2025, Expires: 08/08/2026 documented as of this encounter Visit Diagnoses Diagnosis Encounter for gynecological examination with Papanicolaou smear of cervix- Primary Encounter for immunization documented in this encounter Additional Health Concerns Assessment Noted Time PHQ-9 Depression Total Score: 11 025 9:31 AM EDT documented as of this encounter Care Teams Otr Flatbed Driver Relationship Specialty Start Date End Date Mali Trinidad MD [address] [place] [address] PCP - General Family Medicine 09/22/18 Arminda Dias Biological TechnicianRunner On 08/21/23 documented as of this encounter
--- OUTSIDE RECORDS SUMMARY | 2025-06-08 18:42 | XMS_ITS | Clinical Summary ---
Author Organization [employer] Address [address] [facility] 7t [place] [address] Care Team Providers Care Security Attendant Name Role Phone Mali Trinidad MD Primary Care Provider [phone] Allergies No known active allergies Medications cyclobenzaprin e (Flexeril) 5 MG tablet Take 1 tablet (5 mg) by mouth if needed in the morning, at noon, and at bedtime for muscle spasms. 30 tablet 01/27/20 25 Active cyanocobalamin (Vitamin B-12) 500 MCG tablet Take 1 tab orally once a day 90 tablet 3 02/11/20 25 Active estradiol (Climara) 0.025 MG/24HR Place 1 patch on the skin 1 (one) time per week. 4 patch 03/17/20 25 026 Active progesterone 100 MG capsule Take 1 capsule (100 mg) by mouth Once per day. 90 capsule 3 06/08/20 25 026 Active cholecalcifero l VITAMIN D (Vitamin D-3) 50 MCG (1999 UT) capsule Take 1 capsule (50 mcg) by mouth Once per day. 90 capsule 3 06/08/20 25 Active cholecalcifero l VITAMIN D (Vitamin D-3) 50 MCG (1999 UT) capsule Take 1 capsule (50 mcg) by mouth Once per day. 90 capsule 2 03/17/20 25 025 Discontinued(Re order (will not trigger notification to Pharmacy)) progesterone 100 MG capsule Take 1 capsule (100 mg) by mouth Once per day. 30 capsule 11 03/17/20 25 025 Discontinued(Re order (will not trigger notification to Pharmacy)) Active Problems Problem Noted Date Diagnosed Date Post menopausal syndrome 03/17/2025 Erosive gastritis 06/15/2020 Fibromyalgia 06/11/2018 Anemia 05/22/2018 Fatigue 02/19/2018 Lymphocytopenia 02/19/2018 Heartburn 05/26/2013 Irritable bowel syndrome with diarrhea 2 Resolved Problems Problem Noted Date Diagnosed Date Resolved Date Severe recurrent major depre ssion without psychotic features 11/19/2018 06/08/2025 Encounters Date Type Department Care Team Description 06/08/2025 9:45 AM EDT Procedure Visit [facility] MED & PEDS [address] [place] [address] Mali Trinidad MD Encounter for gynecological examination with Papanicolaou smear of cervix (Primary Dx); Encounter for immunization 06/08/2025 Travel 06/06/2025 Telephone [facility] MED & PEDS [address] [place] [address] Mali Trinidad MD chart prep 03/17/2025 9:00 AM EDT Office Visit [facility] MED & PEDS [address] [place] [address] Mali Trinidad MD Other fatigue (Primary Dx); Lymphocytopenia; Depression, unspecified depression type; Post menopausal syndrome 03/17/2025 Travel 03/16/2025 Telephone [facility] MED & PEDS [address] [place] [address] Mali Trinidad MD chart prep 03/09/2025 Patient Outreach [facility] MEDICINE [address] [place], [place] [phone] Mali Trinidad MD Pre-visit Planning (Pre visit planning LVM ) from Last 3 Months Immunizations Immunization Administration Dates Next Due Influenza injectable quadriv alent IIV4 with preservative 06/16/2019,06/11/2018,08/07/2017,2015 Influenza, Split (incl. lidya fied surface antigen) 07/26/2013,08/20/2012 Pneumococcal Conjugate PCV 20 06/08/2025 TD (adult), 2 Lf tetanus tox oid, preservative free, adsorbed 08/07/2017 Social History Tobacco Use Types Packs/Day Years [...] Mass Index 21.77 06/08/2025 9:35 AM EDT Plan of Treatment Health Maintenance Due Date Last Done Comments CT Colonography 1973 FIT DNA/Cologuard 1973 FIT 1973 HIV Screening 1973 Sigmoidoscopy 1973 Family Planning (PISQ) 1988 Hepatitis C Screening 1991 Hepatitis B Vaccines (1 of 3 - 19+ 3-dose series) 1992 DTaP/Tdap/Td Vaccines (1 - Tdap) 08/08/2017 08/07/2017 FOBT 05/24/2021 05/24/2020 Zoster Vaccines (1 of 2) 2023 Mammogram 02/20/2025 02/20/2023, 10/23, 11/06/2020, Additional history exists Cervical Cancer Screening 03/27/2025 HPV/Cotest 03/27/2025 03/27/2020 Pap Smear 03/27/2025 03/27/2020 COVID-19 Vaccine ( season) 2025 Influenza Vaccine (#1) 2025 9, 06/11/2018, 08/07/2017, Additional history exists Depression Monitoring 09/16/2025 03/17/2025, 025 Alcohol/Substance Use Screening 03/17/2026 03/17/2025 Disability Screening 03/17/2026 03/17/2025 SDOH Screening 03/17/2026 03/17/2025 Tobacco Screening 03/17/2026 03/17/2025 Colonoscopy 09/23/2029 09/23/2019 Colorectal Cancer Screening 09/23/2029 RSV Patients and Patients Aged 60 years or older (1 - 1-dose 75+ series) 2048 Pneumococcal Vaccine: 50+ Years Completed 06/08/2025 HIB Vaccines Aged Out No longer eligi [...] patient's age to complete this topic Meningococcal B Vaccine Aged Out No l onger eligible based on patient's age to complete [...] Procedure Name Priority Date/Time Associated Diagnosis Comments BI MAMMOGRAM SCREENING TOMOSYNTHESIS BILATERAL Routine 02/20/2023 1:57 PM EDT OCCULT BLOOD, FECAL, IMMUNOASSAY Routine 05/24/2020 11:39 AM EDT HM PAP/HPV Routine 03/27/2020 COLONOSCOPY Routine 09/23/2019 from Last 3 Months or Most Recently Relevant to Health Maintenance Results * BI Mammogram Screening Tomosynthesis Bilateral (02/20/2023 1:57 PM EDT) Anatomical Region Laterality Modality Breast Bilateral Mammography 02/20/2023 1:57 PM EDT Narrative 02/22/2023 12:22 PM EDT [facility] [address] [place] [address] Mammography Report Signed Patient: Wen Kim MR#: [id number] 910 : 1975 Acct:[id number] Age/Sex: 47 / F ADM Date: 02/20/23 Loc: HO.MAMMO Attending Dr: Mali Trinidad MD Ordering Physician: Jose Smith MD Results: 2Benign Findings Date of Service: 02/20/23 Follow Up: 1 Year From Orig inal Mammogram Procedure(s): MM tomosynthesis screening BI Accession Number(s): [id number] cc: Jose Smith MD EXAMINATION: MM SCREENING [...] in OV> 02/22/23 1219 DD/ 1357 TD/TT: Grinder Operator Surface Tool: MANE Procedure Note Donotuseinterpreter, Image - [facility]/20/20[facility] [address] [place] [address] Mammography Report Signed Patient: Phyllis Kim#: [id number] : 1975Acct:[id number] Age/Sex: 47 / FADM Date: 02/20/23 Loc: HO.MAMMO Attending Dr: Mali Trinidad MD Ordering Physician: Jose Smith MDResults: 2Benign Findings Date of Service: 02/20/23Follow Up: 1 Year From Orig inal Mammogram Procedure(s): MM tomosynthesis screening BI Accession Number(s): [id number] cc: Jose Smith MD EXAMINATION: MM SCREENING [...] in OV> 02/22/23 1219 DD/ 1357 TD/TT: Grinder Operator Surface Tool: MANE [facility] External Provider IMG BI PROCEDURES Edited Result - Final * OCCULT BLOOD STOOL (05/24/2020 11:39 AM EDT) OCCULT BLOOD STOOL NEG NEG [facility] 05/24/2020 11:3 9 AM EDT Historical Provider LAB BODY FLUIDS AND STOOL S ORDERABLES Final Result [facility] [address] * Pap Smear (03/27/2020) Pap Negative [...] Most Recently Relevant to Health Maintenance Insurance [employer] Care Teams Security Attendant Relationship Specialty Start Date End Date Mali Trinidad MD [address] [place] [address] PCP - General Family Medicine 09/22/18 Arminda Dias Room Service ManagerTire Tester 08/21/23
--- OUTSIDE RECORDS SUMMARY | 2025-06-08 18:42 | XMS_ITS | Encounter Summary ---
Author Organization [employer] Address [address] [facility] 7t [place] [address] Care Team Providers Care Jigmaker Name Role Phone Mali Trinidad MD Primary Care Provider [phone] Encounter Details Date Type Department Care Team ([facility] st Contact Info) Description 07/28/2023 Abstract [facility] MEDICINE [address] [place] [address] Funmilayo Davies Social History Tobacco Use Types [...] documented as of this encounter Care Teams Jigmaker Relationship Specialty Start Date End Date Mali Trinidad MD [address] [place] [address] PCP - General Family Medicine 09/22/18 Arminda Dias Systems Software DeveloperColor Laboratory Technician 08/21/23 documented as of this encounter
--- OUTSIDE RECORDS SUMMARY | 2025-06-08 18:42 | XMS_ITS | Encounter Summary ---
Author Organization [employer] Address [address] [facility] 7 [place] [address] Care Team Providers Care Digital Solutions Architect Name Role Phone Mali Trinidad MD Primary Care Provider [phone] Reason for Visit * Reason Onset Date Comments chart prep 06/06/2025 Encounter Details Date Type Department Care Team ([facility] st Contact Info) Description 06/06/2025 Telephone [facility] CHC MED & PEDS [address] [place], [place] [phone] Mali Trinidad MD [address] [place] [address] chart prep Social History Tobacco Use Types Packs/Day Years [...] encounter Miscellaneous Notes * Telephone Encounter - Cait Ortega [place] - 06/06/2025 3:26 PM EDT Chart Prep Labs: done Images: done Referrals: complete Vaccines due: PCV20, Tdap, Hep B, and Zoster Screenings: mammogram Overdue care gaps: PHQ-9 documented in this encounter Plan of Treatment Not on file documented as of this encounter Visit Diagnoses Not on filedocumented in this encounter Additional Health Concerns Assessment Noted Time PHQ-9 Depression Total Score: 11 025 9:31 AM EDT documented as of this encounter Care Teams Digital Solutions Architect Relationship Specialty Start Date End Date Mali Trinidad MD [address] [place] [address] PCP - General Family Medicine 09/22/18 Arminda Dias Middle School TeacherRepairer And Checker 08/21/23 documented as of this encounter
--- OUTSIDE RECORDS SUMMARY | 2025-06-08 18:42 | XMS_ITS | Encounter Summary ---
Author Organization [employer] Address [address] [facility] 7t [place] [address] Care Team Providers Care Tapper Hand Name Role Phone Mali Trinidad MD Primary Care Provider [phone] Encounter Details Date Type Department Care Team ([facility] st Contact Info) Description 12/12/2022 Orders Only [facility] CHC MED & PEDS [address] [place], [place] [phone] Janeth Womack LPN Social History Tobacco Use [...] on filedocumented in this encounter Care Teams Tapper Hand Relationship Specialty Start Date End Date Mali Trinidad MD [address] [place] [address] PCP - General Family Medicine 09/22/18 Arminda Dias Lead Project ManagerWood Carving Lathe Operator 08/21/23 documented as of this encounter
--- OUTSIDE RECORDS SUMMARY | 2025-06-08 18:42 | XMS_ITS | Encounter Summary ---
Author Organization [employer] Address [address] [facility] 7t [place] [address] Care Team Providers Care Machine Tank Operator Name Role Phone Mali Trinidad MD Primary Care Provider [phone] Encounter Details Date Type Department Care Team (Latest Contact Info) Description 06/08/2025 Travel Social History Tobacco Use Types Packs/Day [...] documented as of this encounter Care Teams Machine Tank Operator Relationship Specialty Start Date End Date Mali Trinidad MD [address] [place] [address] PCP - General Family Medicine 09/22/18 Arminda Dias Cdl Service TechnicianPaperboard Box Maker 08/21/23 documented as of this encounter
== END 2025-06-08 09:51 | disposition home or self-care (01) ==
LOC: HO.LNP 09:50
PROVIDERS: Visit Provider Pediatrics
DX: Z01.419 Encounter for gynecological examination (general) (routine) without abnormal findings (principal)
CPT/HCPCS: 87626; 88175

== ENCOUNTER 2025-06-26 23:20 | Emergency (ER) | payer MEDICAID, SELFPAY ==
[2025-06-26 23:33] VITALS: BP 140/65; PULSE 83; RESP 22; TEMP 36.9; O2SAT 100; BMI 20.4
--- NOTE | 2025-06-27 00:47 | PC.NURSE ---
Iv placed in left AC, medicated per mar.
--- OUTSIDE RECORDS SUMMARY | 2025-06-27 00:48 | XMS_ITS | Encounter Summary ---
Author Organization [employer] Address [address] [facility] [address]t [place] [address] Care Team Providers Care Quality Assurance Representative Name Role Phone Mali Trinidad MD Primary Care Provider [phone] Encounter Details Date Type Department Care Team ([facility] st Contact Info) Description 12/12/2022 Orders Only [facility] CHC MED & PEDS [address] [place], [place] [phone] Janeth Womack LPN Social History Tobacco Use [...] on filedocumented in this encounter Care Teams Quality Assurance Representative Relationship Specialty Start Date End Date Mali Trinidad MD [address] [place] [address] PCP - General Family Medicine 09/22/18 Arminda Dias Licensed Embalmer SupervisorComputer Systems Technology Instructor 08/21/23 documented as of this encounter
--- OUTSIDE RECORDS SUMMARY | 2025-06-27 00:48 | XMS_ITS | Encounter Summary ---
Author Organization [employer] Address [address] [facility] 7t [place] [address] Care Team Providers Care Metal Sprayer Protective Coating Name Role Phone Mali Trinidad MD Primary Care Provider [phone] Encounter Details Date Type Department Care Team ([facility] st Contact Info) Description 07/28/2023 Abstract [facility] MEDICINE [address] [place] [address] Funmilayo Davies Social History Tobacco Use Types [...] documented as of this encounter Care Teams Metal Sprayer Protective Coating Relationship Specialty Start Date End Date Mali Trinidad MD [address] [place] [address] PCP - General Family Medicine 09/22/18 Arminda Dias Flash Welding Machine OperatorDub Room Engineer 08/21/23 documented as of this encounter
--- OUTSIDE RECORDS SUMMARY | 2025-06-27 00:48 | XMS_ITS | Clinical Summary ---
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 ([facility]) 11/19/2018 06/08/2025 Encounters Date Type Department Care Team Description 06/15/2025 Results Follow-Up [facility] [address] [place] [address] Mali Trinidad MD HPV DNA, Low/High Risk 06/15/2025 Orders Only [facility] [address] [place] [address] Mali Trinidad MD Abnormal Papanicolaou smear of cervix with positive human papilloma virus (HPV) test (Primary Dx) 06/08/2025 9:45 AM EDT Procedure Visit [facility] [address] [place] [address] Mali Trinidad MD Encounter for gynecological examination with Papanicolaou smear of cervix (Primary Dx); Encounter for immunization 06/08/2025 Orders Only [facility] [address] [place] [address] Mali Trinidad MD 06/08/2025 Travel 06/06/2025 Orders Only [facility] [address] [place] [address] Mali Trinidad MD 06/06/2025 Telephone [facility] [address] [place] [address] Mali Trinidad MD chart prep from Last 3 Months Immunizations Immunization Administration [...] (1 of 2) 2023 Mammogram 02/20/2025 02/20/2023, 0201/2021, 11/06/2020, Additional history exists COVID-19 Vaccine ( - season) 2025 Influenza Vaccine (#1) 2025 9, 06/11/2018, 08/07/2017, Additional history exists Depression Monitoring 09/16/2025 03/17/2025, 025 Alcohol/Substance Use Screening 03/17/2026 03/17/2025 Disability Screening 03/17/2026 03/17/2025 SDOH Screening 03/17/2026 03/17/2025 Tobacco Screening 03/17/2026 03/17/2025 Colonoscopy 09/23/2029 09/23/2019 Colorectal Cancer Screening 09/23/2029 Pap Smear 06/06/2030 06/06/2025, 03/27/2020 Cervical Cancer Screening 06/08/2030 HPV/Cotest 06/08/2030 06/08/2025, 03/27/2020 RSV Patients and Patients Aged 60 years [...] Procedure Name Priority Date/Time Associated Diagnosis Comments HPV DNA, LOW/HIGH RISK Routine 9:50 AM EDT PAP SMEAR Routine 06/06/2025 9:50 AM EDT BI MAMMOGRAM SCREENING TOMOSYNTHESIS BILATERAL Routine 02/20/2023 1:57 PM EDT OCCULT BLOOD, FECAL, IMMUNOASSAY Routine 05/24/2020 11:39 AM EDT HM COLONOSCOPY Routine 09/23/2019 from Last 3 Months or Most Recently Relevant to Health Maintenance Results * (ABNORMAL) HPV DNA, Low/High Risk (06/08/2025 9:50 AM EDT) HPV High Risk Positive(A) Negative [facility] HPV Genotype 16 Negative Negative [facility] HPV Genotype 18 Negative Negative [facility] Comment:HPV testing performe d at [facility] (CLIA#[id number]), [address] [place] [address].Testing for HPV was performed using the [employer]system. The presence of HPV in the female genital tract isassociated with a number of diseases, including cervicalcarcinoma. The HPV DNA high risk pool tests for HPV 31, 33,35, 39, 45, 51, 52, 56, 58, 59, 66 and 68. The testing forHPV 16 and 18 genotypes has also been performed. A positiveresult indicates detection of nucleic acid sequences fromone or more subtypes, whereas a negative result indicatessuch sequences were not detected. 06/08/2025 9:50 AM EDT 06/09/2025 7:46 AM EDT us Mali Trinidad MD LAB BLOOD ORDERABLES Final Re sult [facility] [address] [place] [phone] * Pap Smear (06/06/2025 9:50 AM EDT) 06/06/2025 9:50 AM EDT 06/09/2025 7:46 AM EDT [facility] - 06/14/2025 10:20 AM EDT ----- ------- Name: KimWen Age/Sex: 50/F : 1975 Unit#: [id number] Attend Dr: Mali Trinidad MD Re06/08/25 Status: DEP REF Location: HO.LNP Disch: ----- ------- SPEC : [id number] RECD: 06/09/25 STATUS: MICHELA LORENZ NUM: [id number] RYDER: 06/06/[address] [facility] [address]: Mali Trinidad MD ENTERED: 06/09/25 SP TYPE: Pap Smr [facility] DR: ORDERED: Pap Smear, PAP path review Interpretation ABNORMAL PAP TEST. Satisfactory for evaluation, with mildly dysplastic squamous cells / HPV cytopathic change (MOHAN 1; low grade squamous intraepithelial lesion). No endocervical cells seen. HPV High Risk: Positive HPV Genotyping 16: Negative HPV Genotyping 18: Negative Clinical Information LMP: Postmenopausal, hormone replacement Previous PAP test: 03/27/2020, Unknown findings Other history: Encounter for gynecological examination with Papanicolaou smear of cervix Material Received ThinPrep-Vaginal/Cervical PAP Disclaimer As of July 14, 2024, the technical services to include automated prescreening performed by the ThinPrep Imaging System, PAP screening and HPV testing will be performed at [facility] (CLIA #[id number]), [address] [place] [address]. Testing for HPV was performed using the [employer] D[employer] 6800 system. The presence of HPV in the female genital tract is associated with a number of diseases, including cervical carcinoma. The HPV DNA high risk pool tests for HPV 31, 33, 35, 39, 45, 51, 52, 56, 58, 59, 66 and 68. The testing for HPV 16 and 18 genotypes has also been performed. A positive result indicates detection of nucleic acid sequences from one or more subtypes, whereas a negative result indicates such sequences were not detected. All professional services are performed by [facility] ([address] [place] [id number]; ; CLIA #[id number]). The PAP Test is a screening procedure with the inherent possibility of both false negative and false positive results. Results should be interpreted in the context of historic and current clinical findings. Reliability of the PAP Test is enhanced by performing the test on a regular repetitive basis. CONTINUED ON NEXT PAGE ----- ------- Name: JulioWen M Age/Sex: 50/F : 1975 Unit#: [id number] Attend Dr: Mali Trinidad MD Re06/08/25 Status: DEP REF Location: HO.LNP Disch: ----- ------- SPEC : [id number] RECD: 06/09/25 STATUS: MICHELA LORENZ NUM: [id number] RYDER: 06/06/25-[address] [facility] [address]: Mali Trinidad MD ENTERED: 06/09/25 SP TYPE: Pap [facility] DR: ORDERED: Pap Smear, PAP path review ----- ------- Signed (signature on file) Mandeep Ramirez MD 06/14/25 1020 ----- ------- END OF REPORT us Mali Trinidad MD LAB CYTOLOGY ORDERABLES Final Result [facility] [address] [place] [address] [phone] * BI Mammogram Screening Tomosynthesis Bilateral (02/20/2023 1:57 PM EDT) Anatomical Region Laterality Modality Breast Bilateral Mammography 02/20/2023 1:57 PM EDT Narrative 02/22/2023 12:22 PM EDT [facility] [address] [place] [address] Mammography Report Signed Patient: Wen Kim MR#: [id number] : 1975 Acct:[id number] Age/Sex: 47 / F ADM Date: 02/20/23 Loc: HO.MAMMO Attending Dr: Mali Trinidad MD Ordering Physician: Jose Smith MD Results: 2Benign Findings Date of Service: 02/20/23 Follow Up: 1 Year From Orig inal Mammogram Procedure(s): MM tomosynthesis screening BI Accession Number(s): [id number] cc: Jose Smith MD EXAMINATION: MM SCREENING [...] in OV> 02/22/23 1219 DD/ 1357 TD/TT: Fitter Placer: MANE Procedure Note Donotuseinterpreter, Image - 03/20/2023 [facility] [address] [place], [place] [address] Mammography Report Signed Patient: Phyllis Kim#: [id number] : 1975Acct:[id number] Age/Sex: 47 / FADM Date: 02/20/23 Loc: HO.MAMMO Attending Dr: Mali Trinidad MD Ordering Physician: Jose Smith MDResults: 2Benign Findings Date of Service: 02/20/23Follow Up: 1 Year From Orig inal Mammogram Procedure(s): MM tomosynthesis screening BI Accession Number(s): [id number] cc: Jose Smith MD EXAMINATION: MM SCREENING [...] in OV> 02/22/23 1219 DD/ 1357 TD/TT: Fitter Placer: MANE [facility] External Provider IMG BI PROCEDURES Edited Result - Final * OCCULT BLOOD STOOL (05/24/2020 11:39 AM EDT) OCCULT BLOOD STOOL NEG NEG [facility] 05/24/2020 11:3 9 AM EDT Historical Provider LAB BODY FLUIDS AND STOOL S ORDERABLES Final Result [facility] [address] [place] [address] * Colonoscopy (09/23/2019) Colonoscopy Normal Normal Narrative Funmilayo Davies - 09/23/2019 Recommended 10 year follow up Historical Provider HEALTH MAINTENANCE Final Result from Last 3 Months or Most Recently Relevant to Health Maintenance [place] [address] [place] [address] C3 Care Teams Engine Assembly Supervisor Relationship Specialty Start Date End Date Mali Trinidad MD [address] [place] [id number] PCP - General Family Medicine 09/22/18 Arminda Dias [employer] PumperNapper Grinder 08/21/23
--- NOTE | 2025-06-27 01:19 | ED.GENADULT ---
HPI - General Adult General Chief complaint: Headache Stated complaint: severe headache Time Seen by Provider: 06/27/25 00:02 Source: patient Limitations: no limitations History of Present Illness ED Provider: Jonelle Suarez PA-C HPI narrative: 50-year-old female with a history of fibromyalgia, chronic constipation, GERD who presents with migraine type headache since June 08. Patient states she received her pneumonia vaccine on that date, since she has had daily headaches. Associated photophobia, nausea. Patient has been using [id number] ibuprofen and Tylenol without relief from her symptoms. Denies head trauma, use of anticoagulation. Denies preceding heavy lifting injury. Denies neck pain, recent illness or fever. Related Data Home Medications ?Medication ?Instructions ?Recorded ?Confirmed cholecalciferol (vitamin D3) 25 25 mcg PO DAILY 07/24/20 08/29/23 mcg (1,000 unit) capsule duloxetine 60 mg capsule,delayed 60 mg PO DAILY 07/24/20 08/29/23 release hydroxyzine HCl 25 mg/mL 25 mg IM Q6H PRN Anxiety 07/24/20 08/29/23 intramuscular solution mirtazapine 15 mg tablet 15 mg PO DAILY 07/24/20 08/29/23 pregabalin 150 mg capsule (Lyrica) 150 mg PO DAILY 07/24/20 08/29/23 trazodone 100 mg tablet 100 mg PO DAILY 07/24/20 08/29/23 venlafaxine 150 mg 150 mg PO QAM 08/24/20 08/29/23 capsule,extended release 24 hr propranolol 10 mg tablet 10 mg PO BID 03/27/21 08/29/23 cyclobenzaprine 5 mg tablet 5 mg PO Q8H PRN muscle spasm 02/05/22 08/29/23 ibuprofen 600 mg tablet 600 mg PO Q8H PRN Pain 02/05/22 08/29/23 Previous Rx's ?Medication ?Instructions ?Recorded omeprazole 20 mg capsule,delayed 20 mg PO BID 30 days #60 caps 10/05/20 release pyridoxine (vitamin B6) 100 mg 100 mg PO DAILY 90 days #90 tabs 05/24/22 tablet ferrous sulfate 325 mg (65 mg 325 mg PO BID #180 tabs 08/29/22 iron) tablet (Iron (ferrous sulfate)) tranexamic acid 650 mg tablet 1,300 mg (2 x 650 mg) PO TID 5 08/29/22 (Lysteda) days #30 tabs bisacodyl 10 mg rectal suppository [address] DAILY PRN constipation 10/07/23 (Dulcolax (bisacodyl)) #20 ea calcium polycarbophil 625 mg 1,250 mg (2 x 625 mg) PO DAILY 30 10/07/23 tablet (Fiber Laxative (calcium days #60 tabs polycarbophil)) docusate sodium 100 mg capsule 200 mg (2 x 100 mg) PO BEDTIME #60 10/07/23 (Colace) caps omeprazole 20 mg capsule,delayed 20 mg PO DAILY PRN reflux 30 days 10/07/23 release #30 caps polyethylene glycol 3350 17 17 g PO DAILY #510 grams 10/07/23 gram/dose oral powder (Miralax) acetaminophen 500 mg tablet 500 mg PO Q6H PRN fever or pain 12/31/24 (Tylenol Extra Strength) #14 tabs cyclobenzaprine 5 mg tablet 5 mg PO Q8H PRN pain (scale score 12/31/24 7-10) 5 days #14 tabs lidocaine 5 % topical patch 1 patch topical DAILY PRN pain #30 12/31/24 (Lidoderm) ea naproxen 500 mg tablet 500 mg PO BID PRN pain 10 days #20 12/31/24 tabs ketorolac 10 mg tablet 10 mg PO Q6H PRN pain #20 tabs 06/27/25 prochlorperazine maleate 10 mg 10 mg PO Q8H PRN nausea and 06/27/25 tablet (Compazine) vomiting #10 tabs Allergies Allergy/AdvReac Type Severity Reaction Status Date / Time No Known Allergies Allergy Verified 06/26/25 23:33 Review of Systems Review of Systems: Yes all other systems are reviewed and are negative Constitutional: Constitutional: Denies fatigue, Denies fever(s) and Reports headache(s) Eyes: Eyes: Denies change in vision and Reports photophobia ENT: Denies dizziness, Reports headache(s) and Denies neck pain Cardiovascular: Cardiovascular: Denies chest pain and Denies dyspnea Respiratory: Respiratory: Denies dyspnea Gastrointestinal: Gastrointestinal: Denies abdominal pain, Reports nausea and Denies vomiting Musculoskeletal: Musculoskeletal: Denies neck pain Neurologic: Denies dizziness and Reports headache(s) Endocrine: Endocrine: Denies fatigue [facility] Past Medical History Attestation statement: The following information was validated with the patient. Medical History Renal calculi Epicondylitis, lateral, right Epicondylitis, lateral, left Fibromyalgia Anemia Fibromyalgia Depression Surgical History History of colon surgery History of bilateral tubal ligation History of Family History Family History Other No family history of cancer Social History Social History Household Members: Children Housing: House Are you a primary hospice home care coordinator to a significant other at home: No Do you presently have visiting nurse or other home services: No Alcohol intake: former Patient Tobacco Use Status: Never used Tobacco Smoked in Last 30 Days: No Use of substances other than those prescribed or required for medical reasons: No Advance Directives: No Advance Directives Information Provided: No service: No Current occupational status: unemployed Current occupation: rt handed Sexual orientation: Straight/Heterosexual Gender identity: Female Physical Exam ED Vital Signs: Vital Signs - 24 hr 06/26/25 23:33 Temperature 98.4 F Pulse Rate 83 Respiratory Rate 22 H Blood Pressure 140/65 H Pulse Oximetry 100 Oxygen Delivery Method Room Air BMI result Body Mass Index 20.4 Const Other: Alert well-appearing Orientation/consciousness: patient oriented x3 Eyes Direct Ophthalmoscopy: photophobia Resp Effort & Inspection: normal respiratory effort Cardio Other: Normal peripheral perfusion Skin Other: Warm dry no rash Neuro General: patient oriented x3, gait normal, no focal motor deficits and CN's II-XI intact bilaterally Psych Other: Cooperative Medications Administered Discontinued Medications Generic Name Dose Route Start Last Admin Trade Name Freq PRN Reason Stop Dose Admin Dexamethasone Sodium Phosphate 10 mg 06/27/25 00:09 06/27/25 00:15 Dexamethasone Sod Phosphate 10 Mg/Ml Vial IVPUSH 06/27/25 00:10 10 mg ONCE ONE Administration Diphenhydramine HCl 25 mg 06/27/25 00:04 06/27/25 00:15 Diphenhydramine Hcl 50 Mg/Ml Vial IVPUSH 06/27/25 00:05 25 mg ONCE ONE Administration Sodium Chloride 1,000 mls @ 999 mls/hr 06/27/25 00:15 06/27/25 01:38 Ns IV 06/27/25 01:15 Infused .Q1H1M MATTEO Infusion Ketorolac Tromethamine 15 mg 06/27/25 00:05 06/27/25 00:15 Ketorolac Tromethamine 15 Mg/Ml Vial IVPUSH 06/27/25 00:06 15 mg ONCE ONE Administration Prochlorperazine Edisylate 10 mg 06/27/25 00:03 06/27/25 00:16 Prochlorperazine Edisylate 10 Mg/2 Ml Vial IVPUSH 06/27/25 00:04 10 mg ONCE ONE Administration Medical Decision Making Medical Decision Making MDM Narrative: 50-year-old female with a history of fibromyalgia, chronic constipation, GERD who presents with migraine type headache since June 08. Patient states she received her pneumonia vaccine on that date, since she has had daily headaches. Associated photophobia, nausea. Patient has been using [id number] ibuprofen and Tylenol without relief from her symptoms. Denies head trauma, use of anticoagulation. Denies preceding heavy lifting injury. Denies neck pain, recent illness or fever. No relevant chronic issues History: Per patient I have considered the following differential diagnoses: Migraine, meningitis, intracranial hemorrhage, VAD, brain tumor Plan: Patient here with a migraine type headache, we will give a migraine cocktail. The patient did not have a preceding heavy lifting mechanism that precipitated a headache, she is neurologically intact, this is not VAD. Doubtful to be intracranial hemorrhage, she has had a gradual onset headache for weeks, there was no head trauma she is not anticoagulated, and again she is neurologically intact. This is not meningitis, there are no meningeal signs on exam, she is afebrile without neck pain. No indication for labs or imaging Differential Diagnosis Differential Diagnoses: The differential diagnosis associated with the presentation includes See medical decision-making Admission/Observation Consideration of admission/observation: Escalation of care including admission/observation considered Not applicable Discharge Plan Discharge Clinical Impression: Migraine Patient Disposition: Home, Self-Care Instructions: Migraine Headache (ED) Additional Instructions: You were treated for a migraine type headache, it improved prior to your discharge. If you develop another migraine type headache, take the following medications together at the same time. It is their synergistic effect the helps to break the migraine cycle. Follow up with primary care provider as needed. Ketorolac 10 mg Compazine 10 mg OTC Benadryl 25 mg Prescriptions: New prochlorperazine maleate [Compazine] 10 mg tablet 10 mg PO Q8H PRN (Reason: nausea and vomiting) Qty: 10 0RF ketorolac 10 mg tablet 10 mg PO Q6H PRN (Reason: pain) Qty: 20 0RF Rx Instructions: maximum total duration of 5 days from all oral, intranasal, or parenteral formulations No Action omeprazole 20 mg capsule,delayed release(DR/EC) 20 mg PO BID 30 Days Qty: 60 3RF pyridoxine (vitamin B6) 100 mg tablet 100 mg PO DAILY 90 Days Qty: 90 1RF ferrous sulfate [Iron (ferrous sulfate)] 325 mg (65 mg iron) Tablet 325 mg PO BID Qty: 180 2RF acetaminophen [Tylenol Extra Strength] 500 mg tablet 500 mg PO Q6H PRN (Reason: fever or pain) Qty: 14 0RF lidocaine [Lidoderm] 5 % adhesive patch,medicated 1 patch topical DAILY MDD remove after 12 hours PRN (Reason: pain) Qty: 30 0RF Rx Instructions: leave on most painful area for up to 12 hrs naproxen 500 mg tablet 500 mg PO BID PRN (Reason: pain) 10 Days Qty: 20 0RF cyclobenzaprine 5 mg tablet 5 mg PO Q8H PRN (Reason: pain (scale score 7-10)) 5 Days Qty: 14 0RF cholecalciferol (vitamin D3) 25 mcg (1,000 unit) capsule 25 mcg PO DAILY trazodone 100 mg tablet 100 mg PO DAILY pregabalin [Lyrica] 150 mg capsule 150 mg PO DAILY mirtazapine 15 mg tablet 15 mg PO DAILY hydroxyzine HCl 25 mg/mL solution 25 mg IM Q6H PRN (Reason: Anxiety) duloxetine 60 mg capsule,delayed release(DR/EC) 60 mg PO DAILY venlafaxine 150 mg capsule,extended release 24hr 150 mg PO QAM propranolol 10 mg tablet 10 mg PO BID ibuprofen 600 mg tablet 600 mg PO Q8H PRN (Reason: Pain) cyclobenzaprine 5 mg tablet 5 mg PO Q8H PRN (Reason: muscle spasm) tranexamic acid [Lysteda] 650 mg tablet 1,300 mg PO TID 5 Days Qty: 30 11RF omeprazole 20 mg capsule,delayed release(DR/EC) 20 mg PO DAILY PRN (Reason: reflux) 30 Days Qty: 30 5RF docusate sodium [Colace] 100 mg capsule 200 mg PO BEDTIME Qty: 60 5RF bisacodyl [Dulcolax (bisacodyl)] 10 mg suppository [address] DAILY PRN (Reason: constipation) Qty: 20 0RF polyethylene glycol 3350 [Miralax] 17 gram/dose powder 17 g PO DAILY Qty: 510 6RF calcium polycarbophil [Fiber Laxative (ca polycarbo)] 625 mg tablet 1,250 mg PO DAILY 30 Days Qty: 60 3RF Stand Alone Forms: Work/School Release Interventions: ED Discharge Assessment Last Done: 06/27/25 02:11 Discharge Date/Time: 06/27/25 02:12 Print Language: Korean
--- NOTE | 2025-06-27 02:04 | PC.NURSE ---
Iv removed, reviewed discharge instructions with pt, pt verbalized understanding, no sign of distress.
[2025-06-27 02:11] VITALS: BP 140/65; PULSE 83; RESP 22; TEMP 36.9; O2SAT 100
== END 2025-06-27 02:12 | disposition home or self-care (01) ==
PROVIDERS: Emergency Provider Emergency Medicine
DX: G43.909 Migraine, unspecified, not intractable, without status migrainosus (principal); H53.149 Visual discomfort, unspecified; R11.0 Nausea
CPT/HCPCS: 96361; 96374; 96375; 99284; 99285; J0737; J1100; J1200; J1885

== ENCOUNTER 2025-07-27 07:58 | Outpatient (REF) | payer MEDICAID, SELFPAY ==
--- OUTSIDE RECORDS SUMMARY | 2025-07-27 08:04 | XMS_ITS | Encounter Summary ---
Author Organization [email or web address] Address [address] [facility] [address] [place] [address] Care Team Providers Care Machine Clothing Man Name Role Phone Mali Trinidad MD Primary Care Provider [phone] Encounter Details Date Type Department Care Team ([facility] st Contact Info) Description 07/28/2023 Abstract [facility] [address] [place] [address] Funmilayo Davies Social History Tobacco Use Types [...] as of this encounter Care Teams Machine Clothing Man Relationship Specialty Start Date End Date Mali Trinidad MD [address] [place] [address] PCP - General Family Medicine 09/22/18 Arminda Dias Ladies Locker Room AttendantScrummaster 08/21/23 documented as of this encounter
--- OUTSIDE RECORDS SUMMARY | 2025-07-27 08:04 | XMS_ITS | Encounter Summary ---
Author Organization [email or web address] Address [address] [facility] [address] [place] [address] Care Team Providers Care Job Molder Name Role Phone Mali Trinidad MD Primary Care Provider Encounter Details Date Type Department Care Team ([facility] st Contact Info) Description 12/12/2022 Orders Only [facility] [address] [place], [place] [phone] Janeth Womack LPN Social History Tobacco Use [...] on filedocumented in this encounter Care Teams Job Molder Relationship Specialty Start Date End Date Mali Trinidad MD [address] [place] [address] PCP - General Family Medicine 09/22/18 Arminda Dias Accounting Office ManagerIndustrial Refrigeration Mechanic 08/21/23 documented as of this encounter
--- OUTSIDE RECORDS SUMMARY | 2025-07-27 08:04 | XMS_ITS | Clinical Summary ---
Author Organization [employer] Address [address] [facility] [address] [place] [address] Care Team Providers Care Offset Printing Operator Name Role Phone Mali Trinidad MD Primary Care Provider [phone] Allergies No known active allergies Medications cyclobenzaprine (Flexeril) 5 MG tablet Take 1 tablet (5 mg) by mouth if needed in the morning, at noon, and at bedtime for muscle spasms. 30 tablet 01/26/2025 Active cyanocobalamin (Vitamin B-12) 500 MCG tablet Take 1 tab orally once a day 90 tablet 3 02/10/2025 Active estradiol (Climara) 0.025 MG/24HR Place 1 patch on the skin 1 (one) time per week. 4 patch 11 03/17/2025 6 Active progesterone 100 MG capsule Take 1 capsule (100 mg) by mouth Once per day. 90 capsule 3 06/08/2025 6 Active cholecalciferol VITAMIN D (Vitamin D-3) 50 MCG (1999 UT) capsule Take 1 capsule (50 mcg) by mouth Once per day. 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) 11/19/2018 06/08/2025 Encounters Date Type Department Care Team Description 07/07/2025 Telephone [facility] [address] [place], [place] [phone] Mali Trinidad MD ER Follow-up; Nurse Triage 06/15/2025 Results Follow-Up [facility] [address] [place] [address] Mali Trinidad MD HPV DNA, Low/High Risk 06/15/2025 Orders Only [facility] [address] [place] [address] Mali Trinidad MD Abnormal Papanicolaou smear of cervix with positive human papilloma virus (HPV) test (Primary Dx) 06/08/2025 9:45 AM EDT Procedure Visit [facility] [address] [place] [address] Mali Trinidad MD Encounter for gynecological examination with Papanicolaou smear of cervix (Primary Dx); Encounter for immunization 06/08/2025 Orders Only [facility] [address] [place] [address] Mali Trinidad MD 06/08/2025 Travel 06/06/2025 Orders Only [facility] [address] [place] [address] Mali Trinidad MD 06/06/2025 Telephone [facility] [address] [place] [address] Mali Trinidad MD chart prep from Last [...] 02/20/2025 02/20/2023, 10/23, 11/06/2020, Additional history exists COVID-19 Vaccine ( [...] AM EDT) HPV High Risk Positive(A) Negative [facility] HPV Genotype 16 Negative Negative [facility] HPV Genotype 18 Negative Negative [facility] Comment:HPV testing performe d at [facility] (CLIA#[id number]), [address] [place] [address].Testing for HPV was performed using the [employer]system. The presence of HPV in the female [...] 9:50 AM EDT 06/09/2025 7:46 AM EDT Mali Trinidad MD LAB BLOOD ORDERABLES Final Re sult [facility] [address] [place] [phone] * Pap Smear (06/06/2025 9:50 AM EDT) 06/06/2025 9:50 AM EDT 06/09/2025 7:46 AM EDT Narrative [facility] - 06/14/2025 10:20 AM EDT ----- ------- Name: Wen Kim Age/Sex: 50/F : 1975 Unit#: [id number] Attend Dr: Mali Trinidad MD Re06/08/25 Status: DEP REF Location: HO.LNP Disch: ----- ------- SPEC : [id number] RECD: 06/09/25 STATUS: MICHELA LORENZ NUM: [id number] RYDER: 06/06/25 [facility] [address]: Mali Trinidad MD ENTERED: 06/09/25 SP TYPE: Pap Smr OTHR DR: ORDERED: Pap Smear, PAP path review [...] and HPV testing will be performed at [facility] (CLIA #[id number]), [address] [place] [address]. Testing for HPV was performed using the [employer] system. The presence of HPV in the [...] detected. All professional services are performed by [facility] ([address] [place], [place] [id number]; ; CLIA #[id number]). The PAP Test is a screening procedure with the inherent possibility of both false negative and false positive results. Results should be interpreted in the context of historic and current clinical findings. Reliability of the PAP Test is enhanced by performing the test on a regular repetitive basis. CONTINUED ON NEXT PAGE ----- ------- Name: Wen Kim Age/Sex: 50/F : 1975 Unit#: [id number] Attend Dr: Mali Trinidad MD Re06/08/25 Status: DEP REF Location: HOMarcioLNP Disch: ----- ------- SPEC : [id number] RECD: 06/09/25 STATUS: MICHELA LORENZ NUM: [id number] RYDER: 06/06/[address] [facility] [address]: Mali Trinidad MD ENTERED: 06/09/25 SP TYPE: Pap Shalom STEVENS DR: ORDERED: Pap Smear, PAP path review ----- ------- Signed (signature on file) Mandeep Ramirez MD 06/14/25 1020 ----- ------- END OF REPORT Mali Trinidad MD LAB CYTOLOGY ORDERABLES Final Result [facility] [address] [place] [phone] * BI Mammogram Screening Tomosynthesis Bilateral (02/20/2023 1:57 PM EDT) Anatomical Region Laterality Modality Breast Bilateral Mammography 02/20/2023 1:57 PM EDT Narrative 02/22/2023 12:22 PM EDT [facility] [address] [place] [address] Mammography Report Signed Patient: Wen Kim MR#: [id number] 910 : 1975 Acct:[id number] Age/Sex: 47 / F ADM Date: 02/20/23 Loc: HO.MAMMO Attending Dr: Mali Trinidad MD Ordering Physician: Jose Smith MD Results: 2Benign Findings Date of Service: 02/20/23 Follow Up: 1 Year From Orig inal Mammogram Procedure(s): MM tomosynthesis screening BI Accession Number(s): [id number] cc: Jose Smith MD EXAMINATION: MM SCREENING [...] in OV> 02/22/23 1219 DD/ 1357 TD/TT: Flooring Installer: MANE Procedure Note Donotuseinterpreter, Image - 03/20/2023 [facility] [address] [place] [address] Mammography Report Signed Patient: Phyllis Kim#: [id number] 910 : 1975Acct:[id number] Age/Sex: 47 / FADM Date: 02/20/23 Loc: HO.MAMMO Attending Dr: Mali Trinidad MD Ordering Physician: Jose Smith MDResults: 2Benign Findings Date of Service: 02/20/23Follow Up: 1 Year From Orig inal Mammogram Procedure(s): MM tomosynthesis screening BI Accession Number(s): [id number] cc: Jose Smith MD EXAMINATION: MM SCREENING [...] in OV> 02/22/23 1219 DD/ 1357 TD/TT: Flooring Installer: [facility] External Provider IMG BI PROCEDURES Edited Result - Final * OCCULT BLOOD STOOL (05/24/2020 11:39 AM EDT) OCCULT BLOOD STOOL NEG NEG [facility] 05/24/2020 11:3 9 AM EDT Historical Provider LAB BODY FLUIDS AND STOOL S ORDERABLES Final Result [facility] [address] * Colonoscopy (09/23/2019) Colonoscopy Normal Normal Narrative Funmilayo Davies - 09/23/2019 Recommended 10 year follow up Historical Provider HEALTH MAINTENANCE Final Result from Last 3 Months or Most Recently Relevant to Health Maintenance [place] [address] [place] [address] C3 Care Teams Offset Printing Operator Relationship Specialty Start Date End Date Mali Trinidad MD [address] [place] [address] PCP - General Family Medicine 09/22/18 Arminda Dias Rough And Truing Machine OperatorCereal Chemist 08/21/23
== END 2025-07-27 07:59 | disposition home or self-care (01) ==
LOC: HO.MAMMO 07:58
PROVIDERS: Visit Provider Pediatrics
DX: Z12.31 Encounter for screening mammogram for malignant neoplasm of breast (principal)
CPT/HCPCS: 77063; 77067

== ENCOUNTER → 2025-07-27 08:15 | Outpatient (BNV) | payer MEDICAID, SELFPAY | PROVIDERS: Visit Provider Radiology Body Imaging | DX: Z12.31 Encounter for screening mammogram for malignant neoplasm of breast (principal) | CPT/HCPCS: 77063; 77067 ==